=== PATIENT | female | born 1940 | race Caucasian/White ===

== ENCOUNTER 2016-05-17 19:49 | Emergency (ER) | payer MEDICARE, BC ==
[2016-05-17] MEDS ORDERED: 0.9 % SODIUM CHLORIDE 1,000 ML BAG IV ONE (20:32)
[2016-05-17] MEDS ORDERED: ONDANSETRON HCL IV 4 MG/2 ML VIAL IV ONE (20:32)
--- NOTE | 2016-05-17 20:32 | Emergency Department Record ---
History of Present Illness - General Chief Complaint: Abdominal Pain Stated Complaint: ABD PAIN Time Seen by Provider: 05/17/16 20:23 Source: Patient Mode of Arrival: Ambulatory Limitations: No limitations - History of Present Illness Initial Comments: 75 yo female presents with abdominal pain that started this morning. The pain started in the upper abdomen. The pain seems to being moving to the lower abdomen as well. No vomiting or diarrhea. She ate meals without worsening of the pain. No fever. No recent changes in her health. She has had prior appy, gall bladder removal and histerectomy. Prior surgeries were over 40 years ago. She has chronic back pain from a prior injury. No chest pain. She had a normal bowel movement at noon. MD Complaint: Abdominal pain Onset/Timin -: Hour(s) Location: Diffuse Radiation: None Migration to: No migration Severity: Severe Quality: Sharp Consistency: Constant, Intermittent, Getting worse Improves With: Rest Worsens With: Other Associated Symptoms: Denies other symptoms - Related Data Home Medications Medication Instructions Recorded Confirmed Last Taken Calcitonin,Marshall,Synthetic 3.7 ml INH DAILY 10/17/13 05/17/16 05/17/16 [Calcitonin-Marshall] Lidocaine [Lidocaine] 700 mg TOP DAILY 10/17/13 05/17/16 05/17/16 Loratadine [Claritin] 10 mg PO DAILY 10/17/13 05/17/16 05/17/16 Tramadol HCl [Tramadol HCl] 50 mg PO QID PRN 10/17/13 05/17/16 05/17/16 Estrogens, Conjugated [Premarin] 0.3 mg PO DAILY 05/17/16 05/17/16 05/17/16 Hydrochlorothiazide 25 mg PO DAILY 05/17/16 05/17/16 05/17/16 [Hydrochlorothiazide] Omeprazole [Prilosec] 20 mg PO DAILY 05/17/16 05/17/16 05/17/16 Allergies Allergy/AdvReac Type Severity Reaction Status Date / Time acetaminophen [From Vicodin] Allergy ANAPHYLAXIS Verified 05/17/16 20:03 adhesive Allergy RASH Verified 05/17/16 20:03 hydrocodone bitartrate Allergy ANAPHYLAXIS Verified 05/17/16 20:03 [From Vicodin] indomethacin [From Indocin] Allergy ANAPHYLAXIS Verified 05/17/16 20:03 indomethacin sodium Allergy ANAPHYLAXIS Verified 05/17/16 20:03 [From Indocin] Travel Screening - Travel/Exposure Within Last 30 Days Have you traveled within the last 30 days?: No - Travel/Exposure Within Last Year Have you traveled outside the [place] in the last year?: No - Additonal Travel Details Have you been exposed to anyone with a communicable illness?: No - Travel Symptoms Symptom Screening: None Review of Systems Constitutional: Denies: Chills, Fever, Malaise, Weakness Eyes: Denies: Eye discharge ENT: Denies: Congestion, Throat pain Respiratory: Denies: Cough, Dyspnea, Hemoptysis, Stridor, Wheezes Cardiovascular: Denies: Chest pain, Palpitations, Syncope Endocrine: Denies: Fatigue Gastrointestinal: Reports: Abdominal pain. Denies: Constipation, Diarrhea, Hematemesis, Hematochezia, Melena, Nausea, Vomiting Genitourinary: Denies: Dysuria, Urgency Musculoskeletal: Reports: Back pain (chronic). Denies: Arthralgia, Joint swelling, Myalgia, Neck pain Skin: Denies: Bruising, Change in color, Rash Neurological: Denies: Confusion, Headache Psychiatric: Denies: Anxiety Hematological/Lymphatic: Denies: Blood Clots, Easy bleeding, Easy bruising, Swollen glands Past Medical History - SOCIAL HISTORY Smoking Status: Never smoker Alcohol Use: None Drug Use: None - RESPIRATORY Hx Respiratory Disorders: No - CARDIOVASCULAR Hx Cardio Disorders: No - NEURO Hx Neuro Disorders: No - GI Hx GI Disorders: No - Hx Genitourinary Disorders: No - ENDOCRINE Hx Endocrine Disorders: No - MUSCULOSKELETAL Hx Musculoskeletal Disorders: Yes Hx Fibromyalgia: Yes Comment:: lupus - PSYCH Hx Psych Problems: No - HEMATOLOGY/ONCOLOGY Hx Hematology/Oncology Disorders: Yes Hx Blood Disorders: Yes (Leukemia) Comment:: Lupus Family Medical History Any Significant Family History?: No Hx Cancer: Father, Mother, Grandparents Physical Exam - General General Appearance: Alert, Oriented x3, Cooperative, No acute distress Limitations: No limitations - Head Head exam: Atraumatic, Normal inspection - Eye Eye exam: Normal appearance, PERRL. negative: Conjunctival injection, Periorbital swelling, Scleral icterus - ENT ENT exam: Normal exam Ear exam: Normal external inspection Nasal Exam: Normal inspection Mouth exam: Normal external inspection - Neck Neck exam: Normal inspection, Full ROM. negative: Tenderness - Respiratory Respiratory exam: Normal lung sounds bilaterally. negative: Accessory muscle use, Prolonged expiratory, Respiratory distress, Rhonchi, Stridor, Wheezes - Cardiovascular Cardiovascular Exam: Regular rate, Normal rhythm, Normal heart sounds Peripheral Pulses: 2+: Radial (R) - GI/Abdominal GI/Abdominal exam: Soft, Normal bowel sounds, Tenderness (tender in the epigastrium, soft, tender mid left and LUQ, soft, no mass). negative: Distended , Rebound, Rigid - Rectal Rectal exam: Deferred - exam: Deferred - Extremities Extremities exam: Normal inspection, Full ROM, Normal capillary refill. negative: Tenderness - Back Back exam: Reports: Normal inspection, Full ROM. Denies: Muscle spasm, Rash noted, Tenderness - Neurological Neurological exam: Alert, Normal gait, Oriented X3 - Psychiatric Psychiatric exam: Normal affect, Normal mood. negative: Agitated, Anxious - Skin Skin exam: Dry, Intact, Normal color, Warm. negative: Cyanosis, Diaphoretic, Erythema Course Vital Signs 05/17/16 19:59 Temperature 97.9 F Pulse Rate [ 62 Pulse Ox Probe] Respiratory 18 Rate Blood Pressure 156/70 [Left Arm] Pulse Ox 98 - Reevaluation(s) Reevaluation #1: the labs were reviewed her WBC count was 19,600 the remaining CBC,CMP,Lipase and lactic acid were in the normal range 05/17/16 21:10 she is tolerating the oral contrast 05/17/16 21:11 Reevaluation #2: The patient tolerated PO contrast well Her abdomen is still very soft but she is drier tender in the periumbilical area. 05/17/16 22:00 Reevaluation #3: The patient has returned from CT. CT sent to [facility] No change in exam. The abdomen is soft but still with periumbilical tenderness. 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 Medical Decision Making - Lab Data Result diagrams: 05/17/16 20:44 05/17/16 20:44 Disposition Disposition: Transfer Clinical Impression: Abdominal pain Qualifiers: Abdominal location: unspecified location Qualified Code(s): R10.9 - Unspecified abdominal pain Disposition: Home, Self-Care Transfer To: [facility] Reason For Transfer: Surgery consult Accepting Physician: Jose Elias Time Discussed w/Accepting Physician: 23:33 Condition: (1) Good Forms: Patient Portal Access Time of Disposition: 23:33
[2016-05-17] MEDS ORDERED: MORPHINE SULFATE 5 MG/ML PFS IVP ONE (20:38)
[2016-05-17 20:52] LABS: HEMATOCRIT 39.7 % (35.0-47.0); HEMOGLOBIN 13.3 gm/dl (11.6-16.0); MEAN CELL VOLUME 90.4 fl (81-97); MEAN CORPUSCULAR HEMOGLOBIN 30.3 pg (27-33); MEAN CORPUSCULAR HGB CONC 33.5 g/dl (32-36); MEAN PLATELET VOLUME 9.6 fl (7.4-10.4); PLATELET COUNT 213 K/uL (130-400); RED BLOOD COUNT 4.39 M/uL (3.80-5.40); RED CELL DISTRIBUTION WIDTH 14.8 % (11.5-14.5); WHITE BLOOD COUNT W/O DIFF 19.6 K/uL (4.2-12.2)
[2016-05-17 21:03] LABS: LACTIC ACID 0.7 mmol/L (0.7-2.1)
[2016-05-17 21:04] LABS: INR 0.98; PARTIAL THROMBOPLASTIN TIME 28.7 SECONDS (24.5-39.1); PROTHROMBIN TIME (PATIENT) 11.1 SECONDS (9.5-12.1)
[2016-05-17 21:07] LABS: BLOOD UREA NITROGEN 28 mg/dL (7-17); CREATININE 0.7 mg/dL (0.52-1.04); EST GLOMERULAR FILTRATION RATE > 60 ml/min; GLUCOSE,RANDOM 108 mg/dL (70-110); TOTAL PROTEIN 6.6 gm/dL (6.3-8.2)
[2016-05-17 21:08] LABS: ALB/GLOB RATIO 1.5 (1.1-1.8); ALKALINE PHOSPHATASE 62 U/L (38-126); ALT/SGPT 30 U/L (9-52); AST/SGOT 24 U/L (14-36); LIPASE 195 U/L (23-300)
[2016-05-17 21:20] LABS: URINE APPEARANCE CLEAR; URINE BILIRUBIN NEGATIVE (NEGATIVE); URINE BLOOD SMALL (NEGATIVE); URINE COLOR YELLOW; URINE GLUCOSE (UA) NEGATIVE (NEGATIVE); URINE KETONE NEGATIVE (NEGATIVE); URINE LEUKOCYTE ESTERASE NEGATIVE (NEGATIVE); URINE NITRITE NEGATIVE (NEGATIVE); URINE UROBILINOGEN 0.2 E.U./dL (0.20 - 1.00)
[2016-05-17 21:24] LABS: URINE PROTEIN 300 mg/dL (NEGATIVE)
[2016-05-17 21:31] LABS: URINE AMORPHOUS SEDIMENT 1+; URINE MUCUS LIGHT
[2016-05-17] MEDS ORDERED: 0.9 % SODIUM CHLORIDE 1000ML 1,000 ML IV ONE (22:54)
--- NOTE | 2016-05-23 07:45 | CT SCAN REPORT ---
EXAM: CT OF THE ABDOMEN AND PELVIS WITH CONTRAST HISTORY: WORSENING DIFFUSE ABDOMINAL PAIN FOR ONE DAY. PATIENT DOES NOT COMPLAIN OF NAUSEA, VOMITING OR DIARRHEA. TECHNIQUE: Following oral and IV contrast administration, helical CT examination of the abdomen and pelvis was performed with 100 ml of Omnipaque 300 utilized. Comparison: CT abdomen and pelvis with contrast dated 10/17/13. FINDINGS: There is minor dependent atelectasis within the left lung base. A tiny pleural based nodular opacity is redemonstrated in the lateral right lung base measuring approximately 2 mm. This is unchanged since 10/17/13 consistent with a benign post inflammatory nodule. The lungs and pleural spaces are otherwise clear. The heart is not enlarged. There is minor coronary artery calcification present. A few nonenlarged cardiophrenic lymph nodes are noted both on the right and the left, stable. A small Bochdalek type hernia is suggested on the left, not significantly changed. No new focal hepatic lesion is seen. The gallbladder is not visualized and likely surgically absent. Mild prominence of the biliary tree is present, new since the prior examination. The common hepatic duct measures 7.6 mm. This may just relate to a physiologic response to surgical absence of the gallbladder though a small distal obstructing lesion would be difficult to exclude and correlation with serum bilirubin and alkaline phosphatase levels is recommended. Splenomegaly persists unchanged or slightly more pronounced in the interval measuring 14 cm in craniocaudad diameter. Ring like calcification is redemonstrated in the left splenic hilum likely a calcified splenic artery aneurysm. No focal lesion is noted in the pancreas, adrenal glands, nor right kidney. There are a couple small hypodense lesions within the left kidney. That in the anteromedial mid to upper left kidney measures 7 mm in diameter, not significantly changed in the interval and that in the posterior lower left kidney measures 9 mm. This is also unchanged. These are likely cysts. A tiny hypodense lesion in the lateral right mid kidney seen on the prior examination is no longer visualized. There are mildly enlarged periportal/gastrohepatic ligament lymph nodes identified measuring 1.4 cm in short axis diameter each. In addition there is a mildly enlarged portocaval lymph node measuring 1.7 cm in short axis diameter. These are not significantly changed in the interval. They are nonspecific though likely reactive. No new intraabdominal nor retroperitoneal lymphadenopathy. The uterus is surgically absent. No pelvic mass, lymphadenopathy, or free pelvic fluid. No intrinsic urinary bladder abnormality is seen. No gross bowel dilatation nor bowel wall thickening. There is diverticulosis of the left colon without evidence of diverticulitis. No destructive bone lesion is seen. There are degenerative changes scattered within the visualized spine. There are a few small nodular opacities within the inferior right breast without corresponding opacities within the left breast. While this likely relates to asymmetric breast parenchyma, other etiologies cannot be excluded and correlation with recent mammographic examination is recommended. There is diffuse atherosclerosis without aneurysmal dilatation of the abdominal aorta nor iliac arteries. IMPRESSION: 1. PRESUMED SURGICALLY ABSENT GALLBLADDER. BILIARY DUCTAL PROMINENCE NEW SINCE THE PRIOR EXAMINATION. THIS MAY JUST RELATE TO A PHYSIOLOGIC RESPONSE TO SURGICAL ABSENCE OF THE GALLBLADDER THOUGH A SMALL DISTAL OBSTRUCTING LESION WOULD BE DIFFICULT TO EXCLUDE AND CORRELATION WITH SERUM BILIRUBIN AND ALKALINE PHOSPHATASE LEVELS WAS RECOMMENDED. 2. MILD ADENOPATHY IN THE PERIPORTAL/GASTROHEPATIC LIGAMENT AND PORTOCAVAL REGIONS NOT GROSSLY CHANGED IN THE INTERVAL, LIKELY REACTIVE. 3. MILD SPLENOMEGALY UNCHANGED OR SLIGHTLY MORE PRONOUNCED IN THE INTERVAL. RING LIKE CALCIFICATION AGAIN NOTED IN THE SPLENIC HILUM CONSISTENT WITH A CALCIFIED ANEURYSM, STABLE. 4. COLONIC DIVERTICULOSIS WITHOUT EVIDENCE OF DIVERTICULITIS. 5. STABLE TOO SMALL TO CHARACTERIZE HYPODENSE LESIONS IN THE LEFT KIDNEY ARE LIKELY CYSTS. 6. SOMEWHAT NODULAR OPACITIES WITHIN THE INFERIOR RIGHT BREAST WITHOUT CORRESPONDING OPACITIES ON THE LEFT. PLEASE SEE ABOVE DISCUSSION. JOB NUMBER: [id number] [facility]
== END 2016-05-18 00:40 | disposition short-term general hospital (02) ==
LOC: ER 19:49
DX: R10.33 Periumbilical pain (principal); D72.829 Elevated white blood cell count, unspecified; M32.9 Systemic lupus erythematosus, unspecified
CPT/HCPCS: 99285 ×2; 96374; 96375; 83605; 83690; 85730; 85610; 80053; 81001; 85027; 74177; 93005; 93010; Q9967; J2405; J2270; J7030

== ENCOUNTER 2017-11-01 21:49 | Emergency (ER) | payer MEDICARE, BC ==
[2017-11-01] MEDS ORDERED: GENTAMICIN SULFATE 0.3% OPTH 5 ML BTL OPTH ONE ×2 (22:03)
--- NOTE | 2017-11-01 22:04 | Emergency Department Record ---
History of Present Illness - General Chief complaint: Eye Problem Time Seen by Provider: 11/01/17 22:03 Source: Patient Mode of Arrival: Ambulatory Limitations: No limitations - History of Present Illness Initial comments: 77 yo female presents to ED for evaluation of red, itchy eyes for 1 day. Patient reports "I know it's conjunctivitis, and I need an eye drop". 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 Patient has been using erythromycin ointment but states that "the drops work better". chief complaint: Eye redness Onset/Timin -: Hour(s) Onset Description: Awoke with symptoms Location: Both eyes Place: Home If Injury: None Eye Symptoms: Itching Severity: Moderate Consistency: Constant Associated Symptoms: None, Rhinorrhea Treatments Prior to Arrival: Other - Related Data Hx Tetanus Toxoid Vaccination: Yes Home Medications Medication Instructions Recorded Confirmed Last Taken Erythromycin Base [Erythromycin 1 apply AFFEYE BID 11/01/17 11/01/17 11/01/17 OPTH Ointment] Allergies Allergy/AdvReac Type Severity Reaction Status Date / Time acetaminophen [From Vicodin] Allergy ANAPHYLAXIS Verified 11/01/17 21:54 adhesive Allergy RASH Verified 11/01/17 21:54 hydrocodone bitartrate Allergy ANAPHYLAXIS Verified 11/01/17 21:54 [From Vicodin] indomethacin [From Indocin] Allergy ANAPHYLAXIS Verified 11/01/17 21:54 indomethacin sodium Allergy ANAPHYLAXIS Verified 11/01/17 21:54 [From Indocin] Travel Screening - Travel/Exposure Within Last 30 Days Have you traveled within the last 30 days?: No - Travel/Exposure Within Last Year Have you traveled outside the [place] in the last year?: No - Additonal Travel Details Have you been exposed to anyone with a communicable illness?: No - Travel Symptoms Symptom Screening: None Review of Systems Constitutional: Denies: Chills, Fever, Malaise, Night sweats Eyes: Reports: Eye discharge. Denies: Photophobia ENT: Denies: Congestion, Ear pain, Epistaxis Respiratory: Denies: Cough, Dyspnea Cardiovascular: Denies: Chest pain, Dyspnea on exertion Endocrine: Denies: Fatigue, Heat or cold intolerance Gastrointestinal: Denies: Abdominal pain, Nausea, Vomiting Genitourinary: Denies: Incontinence, Retention Musculoskeletal: Denies: Arthralgia, Back pain Skin: Denies: Bruising, Change in color Neurological: Denies: Abnormal gait, Confusion, Headache, Seizure Psychiatric: Denies: Anxiety Hematological/Lymphatic: Denies: Anemia, Blood Clots Past Medical History - SOCIAL HISTORY Smoking Status: Never smoker Alcohol Use: None Drug Use: None - RESPIRATORY Hx Respiratory Disorders: No - CARDIOVASCULAR Hx Cardio Disorders: No - NEURO Hx Neuro Disorders: No - GI Hx GI Disorders: No - Hx Genitourinary Disorders: No - ENDOCRINE Hx Endocrine Disorders: No - MUSCULOSKELETAL Hx Musculoskeletal Disorders: Yes Hx Fibromyalgia: Yes Comment:: lupus - PSYCH Hx Psych Problems: No - HEMATOLOGY/ONCOLOGY Hx Hematology/Oncology Disorders: Yes Hx Blood Disorders: Yes (Leukemia) Comment:: Lupus Family Medical History Any Significant Family History?: No Hx Cancer: Father, Mother, Grandparents Physical Exam - General General Appearance: Alert, Oriented x3, Cooperative, Mild distress Limitations: No limitations - Head Head exam: Atraumatic, Normocephalic, Normal inspection Head exam detail: negative: Abrasion, Contusion, Ng's sign, General tenderness, Hematoma, Laceration - Eye Eye exam: Normal appearance, Conjunctival injection. negative: Periorbital swelling, Periorbital tenderness, Scleral icterus - ENT Ear exam: negative: Auricular hematoma, Auricular trauma Nasal Exam: negative: Active bleeding, Discharge, Dried blood, Foreign body Mouth exam: negative: Drooling, Laceration, Muffled voice, Tongue elevation - Neck Neck exam: Normal inspection. negative: Meningismus, Tenderness - Respiratory Respiratory exam: Normal lung sounds bilaterally. negative: Rales, Respiratory distress, Rhonchi, Stridor - Cardiovascular Cardiovascular Exam: Regular rate, Normal rhythm, Normal heart sounds - GI/Abdominal GI/Abdominal exam: Soft. negative: Rebound, Rigid, Tenderness - Rectal Rectal exam: Deferred - exam: Deferred - Extremities Extremities exam: Normal inspection. negative: Tenderness - Neurological Neurological exam: Alert, Normal gait, Oriented X3 - Psychiatric Psychiatric exam: Normal affect, Normal mood - Skin Skin exam: Normal color. negative: Abrasion Type of lesion: negative: abrasion Course Vital Signs 11/01/17 21:56 Temperature 97.8 F Pulse Rate 62 Respiratory 16 Rate Blood Pressure 145/82 Pulse Ox 99 - Reevaluation(s) Reevaluation #1: 07/07/18 22:08 Patient states that her symptoms are not allergic in nature Will switch her antibiotic to gentamycin drops as directed. Patient appears stable for discharge at this time. Disposition Disposition: Discharge Clinical Impression: Conjunctivitis Qualifiers: Conjunctivitis type: acute Acute conjunctivitis type: unspecified Laterality: bilateral Qualified Code(s): H10.33 - Unspecified acute conjunctivitis, bilateral Disposition: Home, Self-Care Condition: (2) Stable Instructions: Conjunctivitis (ED) Additional Instructions: Return to ED if your symptoms worsen or if you have any concerns. Gentamycin eye drops as directed. Follow-up with your eye doctor in 1-3 days as directed. Forms: Patient Portal Access Time of Disposition: 22:04 Quality - Quality Measures Quality Measures: N/A - Blood Pressure Screening Does Patient Have Any of the Following: Active Dx of HTN Blood Pressure Classification: Pre-Hypertensive BP Reading Systolic Measurement: 145 Diastolic Measurement: 82 Screening for High Blood Pressure: Patient Exclusion, Hx of HTN [[id number]]
== END 2017-11-01 22:16 | disposition home or self-care (01) ==
LOC: ER 21:49
DX: H10.33 Unspecified acute conjunctivitis, bilateral (principal)
CPT/HCPCS: 99282

== ENCOUNTER 2017-11-27 12:00 | Inpatient (IN) | payer MEDICARE, BC ==
[2017-11-27] MEDS ORDERED: HYDROMORPHONE HCL 2 MG/ML VIAL IVP ONE ×2 (12:31→14:12)
[2017-11-27] MEDS ORDERED: ONDANSETRON HCL IV 4 MG/2 ML VIAL IVP ONE (12:31)
[2017-11-27 13:00] LABS: HEMATOCRIT 38.3 % (35.0-47.0); HEMOGLOBIN 12.2 gm/dl (11.6-16.0); MEAN CELL VOLUME 90.8 fl (81-97); MEAN CORPUSCULAR HEMOGLOBIN 28.9 pg (27-33); MEAN CORPUSCULAR HGB CONC 31.9 g/dl (32-36); MEAN PLATELET VOLUME 8.9 fl (7.4-10.4); PLATELET COUNT 212 K/uL (130-400); RED BLOOD COUNT 4.22 M/uL (3.80-5.40); RED CELL DISTRIBUTION WIDTH 15.6 % (11.5-14.5)
[2017-11-27 13:11] LABS: BLOOD UREA NITROGEN 23 mg/dL (8-23); CREATININE 0.6 mg/dL (0.5-0.9); EST GLOMERULAR FILTRATION RATE > 60 mL/min
[2017-11-27 13:14] LABS: GLUCOSE,RANDOM 94 mg/dL (74-109)
[2017-11-27 13:16] LABS: ALB/GLOB RATIO 1.7 (1.1-1.8); ALBUMIN 3.8 g/dL (4.0-5.0); ALT/SGPT 17 U/L (<33); AST/SGOT 21 U/L (10.0-35.0)
[2017-11-27 13:17] LABS: ALKALINE PHOSPHATASE 58 U/L (35-104)
--- NOTE | 2017-11-27 13:36 | Emergency Department Record ---
History of Present Illness - General Chief Complaint: Fall Injury Stated Complaint: FALL Time Seen by Provider: 11/27/17 12:22 Source: Patient, EMS Mode of Arrival: Ambulatory Limitations: No limitations - History of Present Illness Initial Comments: pt was standing on 2 step footstool putting up a basket when she fell injuring her left side. Complaint: Fall Onset/Timin -: Minutes(s) Fall From: From height (distance) When Fall Occurred: Just prior to arrival Fall Witnessed: No Place Fall Occurred: Home Loss of Consciousness: None Prolonged Down Time?: No Symptoms Prior to Fall: None Location: Chest, Abdomen, Other Severity: Severe Severity scale (1-10): 10 Quality: Aching Associated Symptoms: Denies - [place] Coma Scale Eye Response: (4) Open spontaneously Motor Response: (6) Obeys commands Verbal Response: (5) Oriented Maciej Total: 15 - Related Data Allergies Allergy/AdvReac Type Severity Reaction Status Date / Time acetaminophen [From Vicodin] Allergy ANAPHYLAXIS Verified 11/27/17 12:06 adhesive Allergy RASH Verified 11/27/17 12:06 hydrocodone bitartrate Allergy ANAPHYLAXIS Verified 11/27/17 12:06 [From Vicodin] indomethacin [From Indocin] Allergy ANAPHYLAXIS Verified 11/27/17 12:06 indomethacin sodium Allergy ANAPHYLAXIS Verified 11/27/17 12:06 [From Indocin] Travel Screening - Travel/Exposure Within Last 30 Days Have you traveled within the last 30 days?: No Review of Systems Reviewed: No additional complaints except as noted below Constitutional: Reports: As per HPI. Denies: Chills, Fever, Malaise, Night sweats, Weakness, Weight change Eyes: Reports: As per HPI. Denies: Eye discharge, Eye pain, Photophobia, Vision change ENT: Reports: As per HPI. Denies: Congestion, Dental pain, Ear pain, Epistaxis , Hearing loss, Throat pain Respiratory: Reports: As per HPI. Denies: Cough, Dyspnea, Hemoptysis, Stridor, Wheezes Cardiovascular: Reports: As per HPI. Denies: Arrhythmia, Chest pain, Dyspnea on exertion, Edema, Murmurs, Orthopnea, Palpitations, Paroxysmal nocturnal dyspnea, Rheumatic Fever, Syncope Endocrine: Reports: As per HPI. Denies: Fatigue, Heat or cold intolerance, Polydipsia, Polyuria Gastrointestinal: Reports: As per HPI. Denies: Abdominal pain, Constipation, Diarrhea, Hematemesis, Hematochezia, Melena, Nausea, Vomiting Genitourinary: Reports: As per HPI. Denies: Abnormal menses, Discharge, Dyspareunia, Dysuria, Frequency, Hematuria, Incontinence, Retention, Urgency Musculoskeletal: Reports: As per HPI. Denies: Arthralgia, Back pain, Gout, Joint swelling, Myalgia, Neck pain Skin: Reports: As per HPI. Denies: Bruising, Change in color, Change in hair/ nails, Lesions, Pruritus, Rash Neurological: Reports: As per HPI. Denies: Abnormal gait, Confusion, Headache, Numbness, Paresthesias, Seizure, Tingling, Tremors, Vertigo, Weakness Psychiatric: Reports: As per HPI. Denies: Anxiety, Auditory hallucinations, Depression, Homicidal thoughts, Suicidal thoughts, Visual hallucinations Hematological/Lymphatic: Reports: As per HPI. Denies: Anemia, Blood Clots, Easy bleeding, Easy bruising, Swollen glands Past Medical History - SOCIAL HISTORY Smoking Status: Never smoker Alcohol Use: None Drug Use: None - RESPIRATORY Hx Respiratory Disorders: No - CARDIOVASCULAR Hx Cardio Disorders: No - NEURO Hx Neuro Disorders: No - GI Hx GI Disorders: No - Hx Genitourinary Disorders: No - ENDOCRINE Hx Endocrine Disorders: No - MUSCULOSKELETAL Hx Musculoskeletal Disorders: Yes Hx Fibromyalgia: Yes Comment:: lupus - PSYCH Hx Psych Problems: No - HEMATOLOGY/ONCOLOGY Hx Hematology/Oncology Disorders: Yes Hx Blood Disorders: Yes (Leukemia) Comment:: Lupus Family Medical History Any Significant Family History?: Yes Hx Cancer: Father, Mother, Grandparents Physical Exam - General General Appearance: Alert, Oriented x3, Cooperative, Moderate distress - Head Head exam: Normal inspection - Eye Eye exam: Normal appearance, PERRL, EOMI Pupils: Normal accommodation - ENT ENT exam: Normal exam, Mucous membranes moist, Normal external ear exam, Normal orophraynx Ear exam: Normal external inspection. negative: External canal tenderness Nasal Exam: Normal inspection. negative: Discharge, Sinus tenderness Mouth exam: Normal external inspection, Tongue normal Teeth exam: Normal inspection. negative: Dental caries Throat exam: Normal inspection. negative: Tonsillar erythema, Tonsillar exudate - Neck Neck exam: Normal inspection, Full ROM. negative: Tenderness - Respiratory Respiratory exam: Normal lung sounds bilaterally, Chest wall tenderness. negative: Respiratory distress - Cardiovascular Cardiovascular Exam: Regular rate, Normal rhythm, Normal heart sounds - GI/Abdominal GI/Abdominal exam: Soft, Normal bowel sounds, Tenderness - Rectal Rectal exam: Deferred - exam: Deferred - Extremities Extremities exam: Normal inspection, Full ROM, Normal capillary refill. negative: Tenderness - Back Back exam: Reports: Normal inspection, CVA tenderness (L), Full ROM. Denies: Muscle spasm, Rash noted, Tenderness - Neurological Neurological exam: Alert, CN II-XII intact, Normal gait, Oriented X3 - Psychiatric Psychiatric exam: Normal affect, Normal mood - Skin Skin exam: Dry, Intact, Normal color, Warm Course Vital Signs 11/27/17 12:08 Pulse Rate 60 Respiratory 20 Rate Blood Pressure 141/66 Pulse Ox 95 Medical Decision Making - Lab Data Result diagrams: 11/27/17 12:41 11/27/17 12:41 Lab Results 11/27/17 11/27/17 Range/Units 12:41 12:41 WBC 20.0 H (4.2-12.2) K/uL RBC 4.22 (3.80-5.40) M/uL Hgb 12.2 (11.6-16.0) gm/dl Hct 38.3 (35.0-47.0) % MCV 90.8 (81-97) fl MCH 28.9 (27-33) pg MCHC 31.9 L (32-36) g/dl RDW 15.6 H (11.5-14.5) % Plt Count 212 (130-400) K/uL MPV 8.9 (7.4-10.4) fl Eosinophils % Not Reportable Basophils % Not Reportable Sodium 141 (136-145) mmol/L Potassium 3.7 (3.4-4.5) mmol/L Chloride 99 (98-107) mmol/L Carbon Dioxide 33.0 H (22-29) mmol/L Anion Gap 9.0 (7-16) BUN 23 (8-23) mg/dL Creatinine 0.6 (0.5-0.9) mg/dL Estimated GFR > 60 mL/min Random Glucose 94 (74-109) mg/dL Calcium 9.7 (8.8-10.2) mg/dL Total Bilirubin 0.50 (0.2-1.0) mg/dL AST 21 (10.0-35.0) U/L ALT 17 (<33) U/L Alkaline Phosphatase 58 (35-104) U/L Total Protein 6.0 L (6.6-8.7) g/dL Albumin 3.8 L (4.0-5.0) g/dL Globulin 2.2 (1.4-4.8) gm/dL Albumin/Globulin Ratio 1.7 (1.1-1.8) Disposition Disposition: Admit Clinical Impression: Multiple rib fractures Qualifiers: Encounter type: initial encounter Fracture type: closed Laterality: left Qualified Code(s): S22.42XA - Multiple fractures of ribs, left side, initial encounter for closed fracture Fall Qualifiers: Encounter type: initial encounter Qualified Code(s): W19.XXXA - Unspecified fall, initial encounter Disposition: Still a Patient at [facility] Decision to Admit: Admit from ER Decision to Admit Date: 11/27/17 Decision to Admit Time: 14:58 Forms: Patient Portal Access Quality - Quality Measures Quality Measures: N/A - Blood Pressure Screening Does Patient Have Any of the Following: No Blood Pressure Classification: Hypertensive Reading Systolic Measurement: 141 Diastolic Measurement: 66 Screening for High Blood Pressure: < First Hypertensive BP, F/U Documented > [ [id number]] First Hypertensive Follow-up Interventions: Follow-up with rescreen GT 1 day and LT 4 weeks.
[2017-11-27] MEDS ORDERED: KETOROLAC 30 MG/ML VIAL IVP ONE (15:06)
[2017-11-27] MEDS ORDERED: ONDANSETRON HCL IV 4 MG/2 ML VIAL IVP PRN (17:43)
[2017-11-27] MEDS: TRAMADOL HCL 50 MG TABLET PO PRN (19:47)
[2017-11-27] MEDS: HYDROMORPHONE HCL 2 MG/ML VIAL IVP PRN (20:30)
[2017-11-27] MEDS: REMOVE PATCH 1 EACH MISC TD SCH (21:07)
[2017-11-28] MEDS: HYDROMORPHONE HCL 2 MG/ML VIAL IVP PRN (05:12)
[2017-11-28] MEDS: TRAMADOL HCL 50 MG TABLET PO PRN (05:12)
[2017-11-28] MEDS: PANTOPRAZOLE SODIUM 40 MG TABLET PO SCH (06:46)
--- NOTE | 2017-11-28 07:26 | CT SCAN REPORT ---
EXAM: CT OF THE ABDOMEN AND PELVIS HISTORY: FALL FROM STEP STOOL, RIB PAIN. TECHNIQUE: Post contrast CT of the abdomen and pelvis was obtained. Approximately 100 ml of Omnipaque 300 intravenous contrast agent was utilized. Comparison: CT of the abdomen and pelvis 05/17/16. FINDINGS: Mild prominence of the biliary tree, similar from prior examination; of uncertain significant given surgical absence of the gallbladder. The liver is otherwise unremarkable. Splenomegaly, overall similar to prior. 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 The adrenal glands and pancreas appear unremarkable. Symmetrically no perfusion. No definite hydronephrosis; minimal asymmetric prominence of the right renal collecting system is overall similar from prior CT and of uncertain significance. Mildly enlarged periportal, gastrohepatic, and portocaval lymph nodes appear stable from prior CT. Diffuse colonic diverticulosis without evidence of acute diverticulitis. The stomach and small bowel are nondilated. No visible pneumoperitoneum. No significant free fluid. Diffuse atherosclerotic calcification of the aortoiliac arterial access without evidence of aneurysm or dissection. A probable pessary device is noted in the pelvic region. The uterus is not visualized. A tiny focus of gas is noted within the urinary bladder along the anterior aspect. Left sided rib fracture is noted, described in separate report for same day CT chest. No additional acute fractures are identified. Marked anteriorly wedged compression deformity of the L1 vertebral body with associated focal kyphosis and retropulsion which appears stable from prior CT. IMPRESSION: 1. NO DEFINITE ACUTE ABDOMINAL OR PELVIC FINDINGS ARE IDENTIFIED. NONDISPLACED LEFT SIDED RIB FRACTURES ARE NOTED, DESCRIBED IN SEPARATE SAME DAY CT REPORT OF THE CHEST. 2. MILD PROMINENCE OF THE BILIARY TREE WHICH APPEARS STABLE FROM 05/17/16 EXAMINATION AND MAY BE RELATED TO PRIOR CHOLECYSTECTOMY. DESCRIBED PREVIOUSLY, CORRELATION WITH SERUM MARKERS MAY BE OF BENEFIT. 3. STABLE ENLARGED PERIPORTAL, GASTROHEPATIC, AND PORTOCAVAL ADENOPATHY. 4. STABLE SPLENOMEGALY. UNCHANGED APPEARANCE OF SMALL CALCIFIED SPLENIC ARTERY ANEURYSM. 5. MARKED L1 VERTEBRAL BODY COMPRESSION DEFORMITY WITH FOCAL KYPHOSIS AND RETROPULSION, UNCHANGED IN APPEARANCE FROM PRIOR CT. 6. COLONIC DIVERTICULOSIS WITHOUT EVIDENCE OF ACUTE DIVERTICULITIS. JOB NUMBER: [id number] [facility], [place]
--- NOTE | 2017-11-28 07:49 | CT SCAN REPORT ---
EXAM: CT OF THE CHEST HISTORY: PATIENT FELL FROM A STEP STOOL, AND NOW HAS LEFT RIB PAIN. TECHNIQUE: Post contrast CT of the chest was obtained. Approximately 100 ml of Omnipaque 300 intravenous contrast was administered. Comparison: CT of the thoracic and lumbar spine 01/19/12. FINDINGS: Suggestion of hypoenhancing right thyroid lobe nodule (series 2 image 1). No pericardial effusion. The thoracic aorta has normal course and caliber; no evidence of aneurysm or dissection. Mild atherosclerotic calcification of the aorta. No pulmonary arterial filling defect seen in the opacified portions of the pulmonary artery. No mediastinal, hilar, or axillary lymphadenopathy. Mild dependent lower lobe atelectasis bilaterally. Otherwise, no focal pulmonary consolidation. No pleural effusion or pneumothorax. Noncalcified 4 mm perifistular right middle lobe nodule (series 2 image 26). Left upper lobe subpleural 4 mm calcified nodule (series 2 image 27, series 601.2 image 152). Nondisplaced fractures of the lateral left ribs five, six and seven. Please see separate report for CT of the abdomen and pelvis for discussion of upper abdominal findings. IMPRESSION: 1. NO DEFINITE ACUTE INTRATHORACIC FINDINGS. 2. NONDISPLACED FRACTURES INVOLVING THE LATERAL ASPECTS OF THE LEFT RIBS FIVE, SIX, AND SEVEN. 3. INCIDENTAL PULMONARY NODULES MEASURING UP TO 4 MM; PER [employer] GUIDELINES, FOLLOW-UP CT OF THE CHEST IS RECOMMENDED IN TWELVE MONTHS TO ASSESS FOR STABILITY. 4. INCIDENTAL PARTIALLY VISUALIZED RIGHT THYROID LOBE NODULE; DEDICATED THYROID ULTRASOUND MAY BE PERFORMED ON A NONEMERGENT BASIS TO FURTHER CHARACTERIZE. JOB NUMBER: [id number] AND [id number] [facility]
[2017-11-28 08:55] LABS: URINE APPEARANCE SL CLOUDY; URINE BILIRUBIN NEGATIVE (NEGATIVE); URINE BLOOD TRACE-I (NEGATIVE); URINE COLOR YELLOW; URINE GLUCOSE (UA) NEGATIVE (NEGATIVE); URINE KETONE NEGATIVE (NEGATIVE); URINE LEUKOCYTE ESTERASE NEGATIVE (NEGATIVE); URINE NITRITE NEGATIVE (NEGATIVE); URINE UROBILINOGEN 0.2 E.U./dL (0.20 - 1.00)
[2017-11-28 09:00] LABS: URINE BACTERIA 4+; URINE EPITHELIAL CELLS 0 - 2 (FEW)
[2017-11-28] MEDS: LIDOCAINE 5% PATCH TOP SCH (09:09)
[2017-11-28] MEDS: HYDROCHLOROTHIAZIDE 25 MG TABLET PO SCH (09:10)
[2017-11-28] MEDS: LORATADINE 10 MG TABLET PO SCH (09:10)
--- NOTE | 2017-11-28 09:11 | History & Physical ---
History of Present Illness - Date of Service Date of Service for History & Physical: 11/28/17 - History of Present Illness Admitting Diagnosis: rib fractures 5,6,7, fall History of Present Illness: Cece Galan is a 77 y/o female brought to ED by EMS s/p fall from a 2 step foot stool while hanging a basket. Denies hitting head or LOC. Lives independently and manage own ADL. Denies any previous change in activity but does report she had acute vomiting, nausea and diarrhea about a week ago that has now resolved. PMX includes fibromyalgia, lupus, leukemia. While in ED abd/pelvis CT showed nod displaced left rib fractures, L1 compression fracture. Chest CT left non displaced 5th, 6th, 7th rib fractures, incidental findings pulmonary nodules no larger than 4mm- recommend follow up chest CT in 12 months, nodule left lobe of thyroid gland, follow up ultrasound on non-emergent bases. WBC 20- acute trauma vs. underlying acute infection. Admitted to floor for pain control, work up/rule out acute infection. 11/28/17- resting in bed, uncomfortable reporting pain level of 9/10. Has been using Dilaudid Q 4 hours for pain. Denies any new symptoms from yesterday, no new concerns from nursing. No fevers overnight. Significant pain with rolling in bed, is requesting home DME to help her with ADLs due to pain. Will collect urine to rule out acute UTI, PT/OT eval for potential home needs, plan to trial oral pain medications with PRN IV Dilaudid for pain control. Potential swing bed candidate for deconditioning due to severe pain Travel Screening - Travel/Exposure Within Last 30 Days Have you traveled within the last 30 days?: No - Travel/Exposure Within Last Year Have you traveled outside the [place] in the last year?: No - Additonal Travel Details Have you been exposed to anyone with a communicable illness?: No - Travel Symptoms Symptom Screening: None Review of Systems Constitutional: Reports: As per HPI. Denies: Chills, Fever, Malaise, Night sweats, Weakness, Weight change Eyes: Reports: As per HPI. Denies: Eye discharge, Eye pain, Photophobia, Vision change ENT: Reports: As per HPI. Denies: Congestion, Dental pain, Ear pain, Epistaxis , Hearing loss, Throat pain Respiratory: Reports: As per HPI. Denies: Cough, Dyspnea, Hemoptysis, Stridor, Wheezes Cardiovascular: Reports: As per HPI. Denies: Arrhythmia, Chest pain, Dyspnea on exertion, Edema, Murmurs, Orthopnea, Palpitations, Paroxysmal nocturnal dyspnea, Rheumatic Fever, Syncope Endocrine: Reports: As per HPI. Denies: Fatigue, Heat or cold intolerance, Polydipsia, Polyuria Gastrointestinal: Reports: As per HPI. Denies: Abdominal pain, Constipation, Diarrhea, Hematemesis, Hematochezia, Melena, Nausea, Vomiting Genitourinary: Reports: As per HPI. Denies: Abnormal menses, Discharge, Dyspareunia, Dysuria, Frequency, Hematuria, Incontinence, Retention, Urgency Musculoskeletal: Reports: As per HPI. Denies: Arthralgia, Back pain, Gout, Joint swelling, Myalgia, Neck pain Skin: Reports: As per HPI. Denies: Bruising, Change in color, Change in hair/ nails, Lesions, Pruritus, Rash Neurological: Reports: As per HPI. Denies: Abnormal gait, Confusion, Headache, Numbness, Paresthesias, Seizure, Tingling, Tremors, Vertigo, Weakness Psychiatric: Reports: As per HPI. Denies: Anxiety, Auditory hallucinations, Depression, Homicidal thoughts, Suicidal thoughts, Visual hallucinations Hematological/Lymphatic: Reports: As per HPI. Denies: Anemia, Blood Clots, Easy bleeding, Easy bruising, Swollen glands Past Medical History - SOCIAL HISTORY Smoking Status: Never smoker Alcohol Use: None Drug Use: None - RESPIRATORY Hx Respiratory Disorders: No - CARDIOVASCULAR Hx Cardio Disorders: No - NEURO Hx Neuro Disorders: No - GI Hx GI Disorders: Yes Hx Reflux: Yes Comment:: diarrhea and nausea - Hx Genitourinary Disorders: Yes Hx Kidney Stones: Yes Hx UTI: Yes - ENDOCRINE Hx Endocrine Disorders: No Hx Diabetes: No Hx Thyroid Disease: No - MUSCULOSKELETAL Hx Musculoskeletal Disorders: Yes Hx Arthritis: Yes Hx Back Injury: Yes Hx Fibromyalgia: Yes Hx Gout: No Hx Musculoskeletal Disease: No Hx Osteoporosis: Yes Comment:: lupus - PSYCH Hx Psych Problems: No - HEMATOLOGY/ONCOLOGY Hx Hematology/Oncology Disorders: Yes Hx Anemia: No Hx Blood Disorders: Yes (CLL) Hx Bruising: Yes Hx Cancer: Yes (CLL) Hx Chemotherapy: No Hx Radiation Therapy: No Hx Clotting Problems: No Hx Sickle Cell Disease: No Hx Unexplained Bleeding: No Hx Blood Transfusions: Yes (with labor and delivery of child) Hx Blood Transfusion Reaction: No Comment:: Lupus Family Medical History Any Significant Family History?: Yes Hx Alcohol Use: Father Hx Cancer: Father, Mother, Brother/Sister, Grandparents Hx Dementia: Mother *Dementia Comment: alzheimers Hx HTN: Mother Hx Seizures: Mother Hx Stroke: Mother H&P Meds/Allergies - Allergies Allergies: Allergies Allergy/AdvReac Type Severity Reaction Status Date / Time acetaminophen [From Vicodin] Allergy ANAPHYLAXIS Verified 11/27/17 12:06 adhesive Allergy RASH Verified 11/27/17 12:06 hydrocodone bitartrate Allergy ANAPHYLAXIS Verified 11/27/17 12:06 [From Vicodin] indomethacin [From Indocin] Allergy ANAPHYLAXIS Verified 11/27/17 12:06 indomethacin sodium Allergy ANAPHYLAXIS Verified 11/27/17 12:06 [From Indocin] - Active Medications Active Medications: Current Medications Hydrochlorothiazide (Hctz 25mg) 25 mg PO DAILY [facility] Hydromorphone HCl (Dilaudid) 0.5 mg IVP Q4H PRN PRN Reason: PAIN - MOD TO SEVERE (5-10) Last Admin: 11/28/17 05:12 Dose: 0.5 mg Lidocaine (Lidoderm) 1 each TOP DAILY [facility] Loratadine (Claritin) 10 mg PO DAILY [facility] Miscellaneous (Remove Patch) 1 each TD QHS [facility] Last Admin: 11/27/17 21:07 Dose: Not Given Ondansetron HCl (Zofran) 4 mg IVP Q6H PRN PRN Reason: NAUSEA Last Admin: 11/27/17 20:36 Dose: 4 mg Pantoprazole Sodium (Protonix) 40 mg PO DAILYAC CHRISTIE Last Admin: 11/28/17 06:46 Dose: 40 mg Tramadol HCl (Ultram) 50 mg PO QID PRN PRN Reason: PAIN - MILD (1-4) Last Admin: 11/28/17 05:12 Dose: 50 mg Physical Exam - Vital Signs Vital Signs: Vital Signs - Last 24 Hrs Temp Pulse Pulse Resp BP BP Pulse Ox 11/28/17 06:00 98.1 F 64 16 134/62 93 L 11/27/17 22:00 98.9 F 60 17 113/54 98 11/27/17 16:45 97.7 F 52 L 18 134/69 98 11/27/17 14:01 65 18 136/65 96 11/27/17 12:08 97.8 F 60 20 141/66 95 - General General Appearance: Alert, Oriented x3, Cooperative, Moderate distress Limitations: No limitations - Head Head exam: Normal inspection - Eye Eye exam: Normal appearance, PERRL, EOMI Pupils: Normal accommodation - ENT ENT exam: Normal exam, Mucous membranes moist, Normal external ear exam, Normal orophraynx Ear exam: Normal external inspection. negative: External canal tenderness Nasal Exam: Normal inspection. negative: Discharge, Sinus tenderness Mouth exam: Normal external inspection, Tongue normal Teeth exam: Normal inspection. negative: Dental caries Throat exam: Normal inspection. negative: Tonsillar erythema, Tonsillar exudate - Neck Neck exam: Normal inspection, Full ROM. negative: Tenderness - Respiratory Respiratory exam: Normal lung sounds bilaterally, Chest wall tenderness. negative: Respiratory distress - Cardiovascular Cardiovascular Exam: Regular rate, Normal rhythm, Normal heart sounds Peripheral Pulses: 3+: Dorsalis Pedis (R), Dorsalis Pedis (L) - GI/Abdominal GI/Abdominal exam: Soft, Normal bowel sounds, Tenderness - Rectal Rectal exam: Deferred - exam: Deferred - Extremities Extremities exam: Normal inspection, Full ROM, Normal capillary refill. negative: Tenderness - Back Back exam: Reports: Normal inspection, CVA tenderness (L), Full ROM. Denies: Muscle spasm, Rash noted, Tenderness - Neurological Neurological exam: Alert, CN II-XII intact, Normal gait, Oriented X3 - Psychiatric Psychiatric exam: Normal affect, Normal mood - Skin Skin exam: Dry, Intact, Normal color, Warm Results - Labs Result Diagrams: 11/27/17 12:41 11/27/17 12:41 Labs Last 24 Hours: Laboratory Results - last 24 hr 11/27/17 11/27/17 11/28/17 12:41 12:41 08:30 WBC 20.0 H RBC 4.22 Hgb 12.2 Hct 38.3 MCV 90.8 MCH 28.9 MCHC 31.9 L RDW 15.6 H Plt Count 212 MPV 8.9 Neutrophils % 29.0 L Band Neutrophils % 0.0 Eosinophils % Not Reportable Basophils % Not Reportable Lymphocytes 69.0 H Monocytes 2.0 Basophils 0.0 Eosinophil Count 0.0 Sodium 141 Potassium 3.7 Chloride 99 Carbon Dioxide 33.0 H Anion Gap 9.0 BUN 23 Creatinine 0.6 Estimated GFR > 60 Random Glucose 94 Calcium 9.7 Total Bilirubin 0.50 AST 21 ALT 17 Alkaline Phosphatase 58 Total Protein 6.0 L Albumin 3.8 L Globulin 2.2 Albumin/Globulin Ratio 1.7 Urine Color Yellow Urine Appearance Sl cloudy Urine pH 5.5 Ur Specific Macy 1.025 Urine Protein 30 mg/dl H Urine Glucose (UA) Negative Urine Ketones Negative Urine Blood Trace-i Urine Nitrite Negative Urine Bilirubin Negative Urine Urobilinogen 0.2 Ur Leukocyte Esterase Negative Urine RBC 3 - 6 Urine WBC 3 - 5 Ur Epithelial Cells 0 - 2 Urine Bacteria 4+ - Imaging and Cardiology CT scan - pelvis Status: Report reviewed (1- non-displaced left rib fracture) CT scan - chest Status: Report reviewed (1- left rib 5,6,7 non displaced rib fractures, 2- pulmonary nodues 4mm 3- right thyroid gland nodule) VTE H&P Assessment - Risk for VTE Risk for VTE: Yes Risk Level: Moderate Risk Assessment Date: 11/28/17 Risk Assessment Time: 12:26 VTE Orders Placed or Will Be Placed: Yes Plan - Detailed Diagnosis and Plan (1) Multiple rib fractures Current Visit: Yes Status: Acute Qualifiers: Encounter type: initial encounter Fracture type: closed Laterality: left Qualified Code(s): S22.42XA - Multiple fractures of ribs, left side, initial encounter for closed fracture Base Code: S22.49XA - MULTIPLE FRACTURES OF RIBS, UNSP SIDE, INIT FOR CLOS FX Comment: 11/28/17 - CT chest reveals non displaced fractures of left ribs 5,6,7 - IS hourly - Pain control with Percocet 7.5/325mg Q 4hr PRN, Dilaudid 0.5mg IVP @ 4 hr PRN , Ultram 50mg QID PRN, Flexeril 5mg Q6hr PRN muscle spasms - PT/OT (2) Leukocytosis Current Visit: Yes Status: Acute Base Code: D72.829 - ELEVATED WHITE BLOOD CELL COUNT, UNSPECIFIED Comment: 11/28/17 - WBC 20 in the ED, etiology trauma vs. infection. Has been afebrile, denies cough or dysuria - Repeat CBC in am - Recent gastroenteritis - U/A with C&S pending (3) Pulmonary nodules Current Visit: Yes Status: Acute Base Code: R91.8 - OTHER NONSPECIFIC ABNORMAL FINDING OF LUNG FIELD Comment: 11/28/17 - Incidental finding on chest CT, nodules no larger than 4mm - Radiologist recommends follow up chest CT in 12 months (4) Thyroid nodule Current Visit: Yes Status: Acute Base Code: E04.1 - NONTOXIC SINGLE THYROID NODULE Comment: 11/28/17 - Incidental finding of right thyroid gland nodule - Radiologist recommends follow up ultrasound of thyroid on a non-emergent basis (5) DVT prophylaxis Current Visit: Yes Status: Acute Base Code: [id number] - Comment: 11/28/17 - Lovenox 40mg QD - nursing to encourage frequent ambulation - PT/OT (6) Full code status Current Visit: Yes Status: Acute Base Code: Z78.9 - OTHER SPECIFIED HEALTH STATUS Comment: 11/28/17
[2017-11-28] MEDS ORDERED: HYDROCORTISONE 1% CREAM 28.35 GM TUBE TOP PRN (09:43)
--- NOTE | 2017-11-28 12:36 | Rehab Evaluation ---
Patient Information - Patient Information Diagnosis: Rib fx 5,6,7 from fall Ordered Treatment: OT Evaluate and Treat Status: Initial Evaluation History: Detail (Pt sustained injuries from a fall while trying to hang a basket.) Past Medical/Surgical Hx: PAST MEDICAL/SURGICAL HISTORY Past Surgical History Hysterectomy Appendectomy Cholecystectomy Left shoulder reconstruction T &A Breast Reduction PMH - Respiratory Hx Respiratory Disorders No PMH - Cardiovascular Hx Cardiovascular Disorders No PMH - Neuro Hx Neurological Disorders No PMH - GI Hx Gastrointestinal Disorders Yes Hx Gastroesophageal Reflux Yes Comment: diarrhea and nausea PMH - Hx Genitourinary Disorders Yes Hx Kidney Stones Yes Hx Urinary Tract Infection Yes PMH - Endocrine Hx Endocrine Disorders No Hx Diabetes No Hx Thyroid Disease No PMH - Musculoskeletal Hx Musculoskeletal Disorders Yes Hx Arthritis Yes Hx Back Injury Yes Hx Fibromyalgia Yes Hx Gout No Hx Musculoskeletal Disease No Hx Osteoporosis Yes Comment: lupus PMH - Psych Hx Psychiatric Problems No PMH - Hematology/Oncology Hx Hematology/Oncology Yes Disorders Hx Anemia No Hx Blood Disorders Yes: CLL Hx Bruising Yes Hx Cancer Yes: CLL Hx Chemotherapy No Hx Radiation Therapy No Hx Clotting Problems No Hx Sickle Cell Disease No Hx Unexplained Bleeding No Hx Blood Transfusion Reaction No Comment: Lupus Premorbid 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 Her son also lives in the same house. There are 3 steps to enter with railing on L side. No steps present on main floor once inside the house. Pt's bedroom and bathroom are located on the first floor. BR consists of no grab bars , a "low boy" toilet (which she had trouble t/f'ing on and off of even prior to incident), and a Jacuzzi tub. There is no shower located on the first floor and patient usually bathes in Jacuzzi tub. Tub is high requiring good ROM to be able to get into. Daughter and son-in-law work during the day, however, pt's son is home during the day but suffers from back issues. Pt feels son could assist with some ADLs such as sock, shoes, underwear, and pants don. Discussed briefly ADL equipment that is available should she find she needs more help.) Precautions: [place], Fall - Time With Patient Total Time Spent With Patient (Min): 25 Treatment Procedures: Detail (OT eval Mod) Subjective Information - Subjective Information Per Patient (Pt informed therapist that she "just got back into bed." Pt refused to bed mobility, t/fs, or any mobility. Will follow-up with physical therapy on these once they are able to asses patient. Pt was informed that therapists will need to see some of these tasks in order to better make recommendations of what equipment she may need. Pt was agreeable to try it but at another time.) Objective Data - Pain Pain Present: Yes Pain Intensity: 8 (Left side/arm) Pain Scale Used: Numeric (1 - 10) - Mental Status Patient Orientation: Oriented x3 - Visual Perception Appears within normal limits for therapeutic activities - ROM Not within normal limits (Pain is limiting full ROM of RUE at this time. Patient is within functional norms to be able to complete ADLs on R side and is able to acheive shld flex to ~135 deg. Elbow flex/ext WNL karen. L arm is more affected due to pain and patient reports she had reconstruction sx on this shld years ago and has had limited ROM since. Able to acheive shld flex on the L to ~ 120 degrees. Other LUE shld ROM not evaluated secondary to patients increasing pain.) - Strength/Tone Not within normal limits (Gentle MMT done to RUE. Pt shows 3+/5 shld flex, 3/5 shld ext with pain, Elbow flex 4/5 but increases pain. LUE was not fully evaluated at this time due to very gently pressure applied for shld flex and increased pain caused.) - Coordination Appears within normal limits for therapeutic activities - Bed Mobility Needs Assist (Follow-up on bed mobility, t/f's and ambulation with physical therapy as patient was not willing to move out of bed at this time due to just having gotten into it and high pain levels.) - Sensation Intact - ADL's/IADL's Detail (ADLs not assesed due to patient not wanting to move out of bed due to pain and having just gotten in bed. She has assistance at home from her son to help with shoes, socks, underwear and pants don/doff if needed. Patient currently has been doing pivot t/f's to bedside commode for toileting with nsg. Pt has a water-bed which she is concerned about.) Therapy Assessment - Therapy Assessment Detail (Pt presents with high pain levels that increase with movement making mobility, t/f's, BUE movement difficult. These limitations in ROM and mobility due to pain will make completing ADLs difficult. Feel patient would benefit from a commode due to strength needed to pushup into standing if having to use her "low boy" toilet she has at home. Pt would also benefit from hospital bed or alternative sleeping surface due to the fact that her water bed would cause increased pain and difficulty to try and move on and off of. Hesitant to recommend w/c due to unable to evaluate pt's functional mobility and it could hinder any improvements to be made with mobility and UE movement that comes from natural gait patterns. Will consult with physical therapy after they are able to evaluate. Pt would benefit from home OT/PT services.)
[2017-11-28] MEDS: OXYCODONE/APAP 7.5MG/325MG TABLET PO PRN ×2 (14:12→21:34)
[2017-11-28] MEDS: CYCLOBENZAPRINE 10MG TABLET PO PRN ×2 (15:06→21:35)
--- NOTE | 2017-11-28 19:46 | Rehab Evaluation ---
Patient Information - Patient Information Diagnosis: Rib fx 5,6,7 from fall Ordered Treatment: PT Evaluate and Treat Status: Initial Evaluation Surgery: No History: Detail (Pt sustained injuries from a fall while trying to hang a basket. States she lost her balance when she stepped to the second step of a two-step footstool. Denies that she was dizzy or faint.) Past Medical/Surgical Hx: PAST MEDICAL/SURGICAL HISTORY Past Surgical History Hysterectomy Appendectomy Cholecystectomy Left shoulder reconstruction T &A Breast Reduction PMH - Respiratory Hx Respiratory Disorders No PMH - Cardiovascular Hx Cardiovascular Disorders No PMH - Neuro Hx Neurological Disorders No PMH - GI Hx Gastrointestinal Disorders Yes Hx Gastroesophageal Reflux Yes Comment: diarrhea and nausea PMH - Hx Genitourinary Disorders Yes Hx Kidney Stones Yes Hx Urinary Tract Infection Yes PMH - Endocrine Hx Endocrine Disorders No Hx Diabetes No Hx Thyroid Disease No PMH - Musculoskeletal Hx Musculoskeletal Disorders Yes Hx Arthritis Yes Hx Back Injury Yes Hx Fibromyalgia Yes Hx Gout No Hx Musculoskeletal Disease No Hx Osteoporosis Yes Comment: lupus PMH - Psych Hx Psychiatric Problems No PMH - Hematology/Oncology Hx Hematology/Oncology Yes Disorders Hx Anemia No Hx Blood Disorders Yes: CLL Hx Bruising Yes Hx Cancer Yes: CLL Hx Chemotherapy No Hx Radiation Therapy No Hx Clotting Problems No Hx Sickle Cell Disease No Hx Unexplained Bleeding No Hx Blood Transfusion Reaction No Comment: Lupus Premorbid 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 She was using an ankle-foot immobilizer intermittently on the left foot to manage chronic tendonitis, but she was not wearing it when she fell.) Social History: Detail (Pt lives in a 2-story house with her son-in-law & daughter. Her son also lives in the same house. There are 3 steps to enter with railing on L side. No steps present on main floor once inside the house. Pt's bedroom and bathroom are located on the first floor. BR consists of no grab bars , a "low boy" toilet (which she had trouble t/f'ing on and off of even prior to incident), and a Jacuzzi tub. There is no shower located on the first floor and patient usually bathes in Jacuzzi tub. Tub is high requiring good ROM to be able to get into. Daughter and son-in-law work during the day, however, pt's son is home during the day but suffers from back issues. Pt feels son could assist with some ADLs such as sock, shoes, underwear, and pants don. Discussed briefly ADL equipment that is available should she find she needs more help.) Precautions: [place], Fall - Time With Patient Total Time Spent With Patient (Min): 45 Treatment Procedures: Detail (PT Evaluation) Subjective Information - Subjective Information Per Patient (Pt lying in bed upon arrival, awake/alert, states she just got into bed from sitting up for about half-hour in bedside chair.) Objective Data - Pain Pain Present: Yes Pain Intensity: 10 (Intermittent spasms L trunk/ribs) Pain Scale Used: Numeric (1 - 10) - Mental Status Patient Orientation: Oriented x3 - Visual Perception Appears within normal limits for therapeutic activities - ROM Within normal limits (AROM in B LE's is grossly WNL at hips, knees, ankles.) - Strength/Tone Not within normal limits (B hip flexion and extension are 4/5, B hip abduction and adduction are 4+/5 as are B knee flexion and extension, and B ankle dorsiflexion.) - Coordination Appears within normal limits for therapeutic activities - Bed Mobility Needs Assist (Required minimal assist for rolling onto R side and to push up from sidelying to sitting and for assuming supine from sitting. Heavy moderate assist to scoot up in bed.) - Transfers Needs Assist (CGA for sit/stand transfer from bed height or bedside chair. Verbalizes difficulty transferring to/from toilet in bathroom; has been using bedside commode. Discussed with patient and nrsg that commode be placed over toilet to encourage mobility.) - Balance Balance Sitting: Good Balance Standing: Fair (Good static standing balance unsupported, but appears somewhat unsteady with initiating gait, due to clutching bath blanket on L to splint ribs.) - Sensation Intact - Gait Detail (Ambulated from bedside to door and back to bedside (22 feet) with WARPER TENDER/ CGA with short, hesitating steps due to rib pain with movement.) Therapy Assessment - Therapy Assessment Detail (Pt exhibits difficulty with bed mobility, transfers, and gait due to severe rib pain associated with movement. She is a good candidate for inpatient physical therapy to ensure safety with mobility and encourage mobility to prevent further complications from immobilization.) Patient Education - Patient Education Teaching Topic: Coping Skills, Disease Process, Exercise/Activity, Precautions Response: Verbalize Understanding Teaching Method: Discussion Teaching Recipient: Patient Barriers To Learning: None Problem List - Problem List Physical Therapy Problem List: Detail (1. Requires assistance with bed mobility and transfers. 2. Difficulty walking. 3. Proximal lower extremity weakness. 4. Impaired activity tolerance.) Goals - Goals Physical Therapy Goals: 1. Pt will require CGA for supine<>sit mobility. 2. Pt will require supervision only for sit/stand transfers. 3. Pt will ambulate over household distances with supervision, with appropriate assistive device, if any. Prognosis - Prognosis Good Plan - Plan Physical Therapy Plan: Pt will be seen 1-2 times daily M-F for LE strengthening , bed mobility and transfer training, gait and balance training.
[2017-11-28] MEDS: REMOVE PATCH 1 EACH MISC TD SCH (22:29)
[2017-11-29] MEDS: OXYCODONE/APAP 7.5MG/325MG TABLET PO PRN ×5 (02:47→20:29)
[2017-11-29 06:31] LABS: HEMATOCRIT 38.4 % (35.0-47.0); HEMOGLOBIN 12.2 gm/dl (11.6-16.0); MEAN CELL VOLUME 91.9 fl (81-97); MEAN CORPUSCULAR HEMOGLOBIN 29.2 pg (27-33); MEAN CORPUSCULAR HGB CONC 31.8 g/dl (32-36); PLATELET COUNT 206 K/uL (130-400); RED BLOOD COUNT 4.18 M/uL (3.80-5.40); RED CELL DISTRIBUTION WIDTH 15.8 % (11.5-14.5); WHITE BLOOD COUNT W/O DIFF 17.7 K/uL (4.2-12.2)
[2017-11-29] MEDS: PANTOPRAZOLE SODIUM 40 MG TABLET PO SCH (07:41)
[2017-11-29] MEDS: CYCLOBENZAPRINE 10MG TABLET PO PRN (07:48)
[2017-11-29] MEDS: NITROFURANTOIN MONO 100 MG CAPSULE PO SCH ×3 (08:42→22:03)
--- NOTE | 2017-11-29 09:58 | Physician Progress Note ---
Subjective - Date Date of Physician Progress Note: 11/29/17 - Subjective Subjective Comment: No new concerns from nursing. Urinalysis showes UTI, culture pending. Patient remains symptomatic with texbook symptoms but may have been contributing factor to recent fall from the step stool. Patient reports her pain is much improved with use of Percocet and is able to get out of be a little easier. Reports Flexeril made her very sleepy. Objective - Vital Signs Vital Signs: Vital Signs - Last 24 Hrs Temp Pulse Resp BP Pulse Ox 11/29/17 06:00 97.3 F L 64 16 154/75 97 11/28/17 22:00 98.6 F 75 17 161/81 96 11/28/17 14:00 98.8 F 61 18 117/59 93 L 11/28/17 10:00 97.9 F 59 L 18 122/64 90 L - General General Appearance: Alert, Oriented x3, Cooperative, No acute distress Limitations: No limitations - Head Head exam: Normal inspection - Eye Eye exam: Normal appearance, PERRL, EOMI Pupils: Normal accommodation - ENT ENT exam: Normal exam, Mucous membranes moist, Normal external ear exam, Normal orophraynx Ear exam: Normal external inspection. negative: External canal tenderness Nasal Exam: Normal inspection. negative: Discharge, Sinus tenderness Mouth exam: Normal external inspection, Tongue normal Teeth exam: Normal inspection. negative: Dental caries Throat exam: Normal inspection. negative: Tonsillar erythema, Tonsillar exudate - Neck Neck exam: Normal inspection, Full ROM. negative: Tenderness - Respiratory Respiratory exam: Normal lung sounds bilaterally, Chest wall tenderness. negative: Respiratory distress - Cardiovascular Cardiovascular Exam: Regular rate, Normal rhythm, Normal heart sounds Peripheral Pulses: 3+: Dorsalis Pedis (R), Dorsalis Pedis (L) - GI/Abdominal GI/Abdominal exam: Soft, Normal bowel sounds, Tenderness - Rectal Rectal exam: Deferred - exam: Deferred - Extremities Extremities exam: Normal inspection, Full ROM, Normal capillary refill. negative: Tenderness - Back Back exam: Reports: Normal inspection, CVA tenderness (L), Full ROM. Denies: Muscle spasm, Rash noted, Tenderness - Neurological Neurological exam: Alert, CN II-XII intact, Normal gait, Oriented X3 - Psychiatric Psychiatric exam: Normal affect, Normal mood - Skin Skin exam: Dry, Intact, Normal color, Warm Assessment and Plan - Assessment and Plan (1) Multiple rib fractures Current Visit: Yes Status: Acute Qualifiers: Encounter type: initial encounter Fracture type: closed Laterality: left Qualified Code(s): S22.42XA - Multiple fractures of ribs, left side, initial encounter for closed fracture Base Code: S22.49XA - MULTIPLE FRACTURES OF RIBS, UNSP SIDE, INIT FOR CLOS FX Comment: 11/29/17 - CT chest reveals non displaced fractures of left ribs 5,6,7 - IS hourly - Pain control with Percocet 7.5/325mg Q 4hr PRN, Dilaudid 0.5mg IVP @ 4 hr PRN , Ultram 50mg QID PRN - Percocet is working well for pain, allowing her to be more mobile - PT/OT (2) UTI (urinary tract infection) Current Visit: Yes Status: Acute Base Code: N39.0 - URINARY TRACT INFECTION , SITE NOT SPECIFIED Comment: 11/29/17 - Macrobid 100mg BID x 5 days - urine culture pending (3) Leukocytosis Current Visit: Yes Status: Acute Base Code: D72.829 - ELEVATED WHITE BLOOD CELL COUNT, UNSPECIFIED Comment: 11/29/17 - WBC 20 in the ED, etiology trauma vs. infection. Has been afebrile, denies cough or dysuria - WBC 17.7 today, urinalysis and micro positive for infection - Urine culture pending - Macrobid 100mg BID x 5 days (4) Pulmonary nodules Current Visit: Yes Status: Acute Base Code: R91.8 - OTHER NONSPECIFIC ABNORMAL FINDING OF LUNG FIELD Comment: 11/29/17 - Incidental finding on chest CT, nodules no larger than 4mm - Radiologist recommends follow up chest CT in 12 months (5) Thyroid nodule Current Visit: Yes Status: Acute Base Code: E04.1 - NONTOXIC SINGLE THYROID NODULE Comment: 11/29/17 - Incidental finding of right thyroid gland nodule - Radiologist recommends follow up ultrasound of thyroid on a non-emergent basis (6) DVT prophylaxis Current Visit: Yes Status: Acute Base Code: [id number] - Comment: 11/29/17 - Lovenox 40mg QD - nursing to encourage frequent ambulation - PT/OT (7) Full code status Current Visit: Yes Status: Acute Base Code: Z78.9 - OTHER SPECIFIED HEALTH STATUS Comment: 11/29/17 Results - Labs Result Diagrams: 11/29/17 06:05 11/27/17 12:41 Labs Last 24 Hours: Laboratory Results - last 24 hr 11/29/17 06:05 WBC 17.7 H RBC 4.18 Hgb 12.2 Hct 38.4 MCV 91.9 MCH 29.2 MCHC 31.8 L RDW 15.8 H Plt Count 206 MPV 9.0 Neutrophils % 49.0 Band Neutrophils % 6.0 H Eosinophils % Not Reportable Basophils % Not Reportable Lymphocytes 41.0 Monocytes 3.0 Basophils 1.0 DVT/PE Assessment - Risk for VTE Risk for VTE: No Risk Level: Moderate Risk Assessment Date: 11/28/17 Risk Assessment Time: 12:26 VTE Orders Placed or Will Be Placed: Yes - Active Medicaitons Current Medications: Current Medications Enoxaparin Sodium (Lovenox) 40 mg SQ DAILY [facility] Hydrochlorothiazide (Hctz 25mg) 25 mg PO DAILY [facility] Last Admin: 11/28/17 09:10 Dose: 25 mg Hydrocortisone (Hydrocortisone) 28.35 gm TOP Q6HR PRN PRN Reason: ITCHING Hydromorphone HCl (Dilaudid) 0.5 mg IVP Q4H PRN PRN Reason: PAIN - MOD TO SEVERE (5-10) Last Admin: 11/28/17 05:12 Dose: 0.5 mg Lidocaine (Lidoderm) 1 each TOP DAILY [facility] Last Admin: 11/28/17 09:09 Dose: 1 each Loratadine (Claritin) 10 mg PO DAILY [facility] Last Admin: 11/28/17 09:10 Dose: 10 mg Miscellaneous (Remove Patch) 1 each TD QHS [facility] Last Admin: 11/28/17 22:29 Dose: 1 each Nitrofurantoin Macrocrystals (Macrobid) 100 mg PO BID [facility] Stop: 12/04/17 08:11 Last Admin: 11/29/17 08:42 Dose: 100 mg Ondansetron HCl (Zofran) 4 mg IVP Q6H PRN PRN Reason: NAUSEA Last Admin: 11/27/17 20:36 Dose: 4 mg Oxycodone/Acetaminophen (Percocet 7.5-325 Mg Tablet) 1 each PO Q4H PRN PRN Reason: PAIN - MILD TO MODERATE (1-7) Stop: 12/05/17 10:20 Last Admin: 11/29/17 07:42 Dose: 1 each Pantoprazole Sodium (Protonix) 40 mg PO DAILYAC [facility] Last Admin: 11/29/17 07:41 Dose: 40 mg Tramadol HCl (Ultram) 50 mg PO QID PRN PRN Reason: PAIN - MILD (1-4) Last Admin: 11/28/17 05:12 Dose: 50 mg AMI Plan - Labs Result Diagrams: 11/29/17 06:05 11/27/17 12:41
[2017-11-29] MEDS: LORATADINE 10 MG TABLET PO SCH (10:09)
[2017-11-29] MEDS: LIDOCAINE 5% PATCH TOP SCH (10:09)
[2017-11-29] MEDS: HYDROCHLOROTHIAZIDE 25 MG TABLET PO SCH (10:09)
[2017-11-29] MEDS: ENOXAPARIN 40 MG/0.4 ML SYR SQ SCH (10:09)
[2017-11-29] MEDS: POLYETHYLENE GLY 17 GM PACKET PO SCH (10:18)
[2017-11-29] MEDS: REMOVE PATCH 1 EACH MISC TD SCH (22:03)
[2017-11-30] MEDS: OXYCODONE/APAP 7.5MG/325MG TABLET PO PRN ×4 (00:37→20:57)
[2017-11-30] MEDS: PANTOPRAZOLE SODIUM 40 MG TABLET PO SCH (06:36)
[2017-11-30] MEDS: ENOXAPARIN 40 MG/0.4 ML SYR SQ SCH (09:26)
[2017-11-30] MEDS: LORATADINE 10 MG TABLET PO SCH (09:27)
[2017-11-30] MEDS: POLYETHYLENE GLY 17 GM PACKET PO SCH (09:27)
[2017-11-30] MEDS: NITROFURANTOIN MONO 100 MG CAPSULE PO SCH ×3 (09:27→22:11)
[2017-11-30] MEDS: HYDROCHLOROTHIAZIDE 25 MG TABLET PO SCH (09:27)
[2017-11-30] MEDS: LIDOCAINE 5% PATCH TOP SCH (09:32)
--- NOTE | 2017-11-30 16:18 | Physician Progress Note ---
Subjective - Date Date of Physician Progress Note: 11/30/17 - Subjective Subjective Comment: No new nursing concerns over night. Patient reports Percocet is still effective for pain, was able to walk about 100ft yesterday. Still quite painful with all movement and having difficulty with alexus care after toileting due to pain and difficulty twisting torso. Is tolerating Macrobid without adverse reaction. Did move bowels last night after receiving Miralax. Plan to admit to swing bed program in the am. Objective - Vital Signs Vital Signs: Vital Signs - Last 24 Hrs Temp Pulse Resp BP Pulse Ox 11/30/17 14:00 98.5 F 72 16 139/67 96 11/30/17 09:00 12 11/30/17 06:00 98.1 F 64 12 105/71 94 L 11/29/17 22:00 98.7 F 79 17 141/63 98 11/29/17 16:49 98.0 F 72 16 140/70 94 L - General General Appearance: Alert, Oriented x3, Cooperative, No acute distress Limitations: No limitations - Head Head exam: Normal inspection - Eye Eye exam: Normal appearance, PERRL, EOMI Pupils: Normal accommodation - ENT ENT exam: Normal exam, Mucous membranes moist, Normal external ear exam, Normal orophraynx Ear exam: Normal external inspection. negative: External canal tenderness Nasal Exam: Normal inspection. negative: Discharge, Sinus tenderness Mouth exam: Normal external inspection, Tongue normal Teeth exam: Normal inspection. negative: Dental caries Throat exam: Normal inspection. negative: Tonsillar erythema, Tonsillar exudate - Neck Neck exam: Normal inspection, Full ROM. negative: Tenderness - Respiratory Respiratory exam: Normal lung sounds bilaterally, Chest wall tenderness. negative: Respiratory distress - Cardiovascular Cardiovascular Exam: Regular rate, Normal rhythm, Normal heart sounds Peripheral Pulses: 3+: Dorsalis Pedis (R), Dorsalis Pedis (L) - GI/Abdominal GI/Abdominal exam: Soft, Normal bowel sounds, Tenderness - Rectal Rectal exam: Deferred - exam: Deferred - Extremities Extremities exam: Normal inspection, Full ROM, Normal capillary refill. negative: Tenderness - Back Back exam: Reports: Normal inspection, CVA tenderness (L), Full ROM. Denies: Muscle spasm, Rash noted, Tenderness - Neurological Neurological exam: Alert, CN II-XII intact, Normal gait, Oriented X3 - Psychiatric Psychiatric exam: Normal affect, Normal mood - Skin Skin exam: Dry, Intact, Normal color, Warm Assessment and Plan - Assessment and Plan (1) Multiple rib fractures Current Visit: Yes Status: Acute Qualifiers: Encounter type: initial encounter Fracture type: closed Laterality: left Qualified Code(s): S22.42XA - Multiple fractures of ribs, left side, initial encounter for closed fracture Base Code: S22.49XA - MULTIPLE FRACTURES OF RIBS, UNSP SIDE, INIT FOR CLOS FX Comment: 11/30/17 - CT chest reveals non displaced fractures of left ribs 5,6,7 - IS hourly - Pain control with Percocet 7.5/325mg Q 4hr PRN, Dilaudid 0.5mg IVP @ 4 hr PRN , Ultram 50mg QID PRN - Percocet is working well for pain, allowing her to be more mobile - PT/OT - swing bed admission 12/01 (2) UTI (urinary tract infection) Current Visit: Yes Status: Acute Base Code: N39.0 - URINARY TRACT INFECTION , SITE NOT SPECIFIED Comment: 11/30/17 - Macrobid 100mg BID x 5 days - urine culture pending (3) Leukocytosis Current Visit: Yes Status: Acute Base Code: D72.829 - ELEVATED WHITE BLOOD CELL COUNT, UNSPECIFIED Comment: 11/30/17 - WBC 20 in the ED, etiology most likely infection. Has been afebrile - WBC 17.7 11/29, urinalysis and micro positive for infection - Urine culture pending - Macrobid 100mg BID x 5 days (4) Pulmonary nodules Current Visit: Yes Status: Acute Base Code: R91.8 - OTHER NONSPECIFIC ABNORMAL FINDING OF LUNG FIELD Comment: 11/30/17 - Incidental finding on chest CT, nodules no larger than 4mm - Radiologist recommends follow up chest CT in 12 months (5) Thyroid nodule Current Visit: Yes Status: Acute Base Code: E04.1 - NONTOXIC SINGLE THYROID NODULE Comment: 11/30/17 - Incidental finding of right thyroid gland nodule - Radiologist recommends follow up ultrasound of thyroid on a non-emergent basis (6) DVT prophylaxis Current Visit: Yes Status: Acute Base Code: [id number] - Comment: 11/30/17 - Lovenox 40mg QD - nursing to encourage frequent ambulation - PT/OT (7) Full code status Current Visit: Yes Status: Acute Base Code: Z78.9 - OTHER SPECIFIED HEALTH STATUS Results - Labs Result Diagrams: 11/29/17 06:05 11/27/17 12:41 DVT/PE Assessment - Risk for VTE Risk for VTE: No Risk Level: Moderate Risk Assessment Date: 11/28/17 Risk Assessment Time: 12:26 VTE Orders Placed or Will Be Placed: Yes - Active Medicaitons Current Medications: Current Medications Enoxaparin Sodium (Lovenox) 40 mg SQ DAILY [facility] Last Admin: 11/30/17 09:26 Dose: 40 mg Hydrochlorothiazide (Hctz 25mg) 25 mg PO DAILY [facility] Last Admin: 11/30/17 09:27 Dose: 25 mg Hydrocortisone (Hydrocortisone) 28.35 gm TOP Q6HR PRN PRN Reason: ITCHING Hydromorphone HCl (Dilaudid) 0.5 mg IVP Q4H PRN PRN Reason: PAIN - MOD TO SEVERE (5-10) Last Admin: 11/28/17 05:12 Dose: 0.5 mg Lidocaine (Lidoderm) 1 each TOP DAILY [facility] Last Admin: 11/30/17 09:32 Dose: 1 each Loratadine (Claritin) 10 mg PO DAILY [facility] Last Admin: 11/30/17 09:27 Dose: 10 mg Miscellaneous (Remove Patch) 1 each TD QHS [facility] Last Admin: 11/29/17 22:03 Dose: 1 each Nitrofurantoin Macrocrystals (Macrobid) 100 mg PO BID [facility] Stop: 12/04/17 08:11 Last Admin: 11/30/17 09:27 Dose: 100 mg Ondansetron HCl (Zofran) 4 mg IVP Q6H PRN PRN Reason: NAUSEA Last Admin: 11/27/17 20:36 Dose: 4 mg Oxycodone/Acetaminophen (Percocet 7.5-325 Mg Tablet) 1 each PO Q4H PRN PRN Reason: PAIN - MILD TO MODERATE (1-7) Stop: 12/05/17 10:20 Last Admin: 11/30/17 11:14 Dose: 1 each [facility]op[facility] Last Admin: 11/30/17 06:36 Dose: 40 mg Polyethylene Glycol (Miralax) 17 gm PO DAILY [facility] Last Admin: 11/30/17 09:27 Dose: 17 gm Tramadol HCl (Ultram) 50 mg PO QID PRN PRN Reason: PAIN - MILD (1-4) Last Admin: 11/28/17 05:12 Dose: 50 mg AMI Plan - Labs Result Diagrams: 11/29/17 06:05 11/27/17 12:41
[2017-11-30] MEDS ORDERED: ONDANSETRON 4 MG ODT TABLET SL PRN (17:18)
[2017-11-30] MEDS: REMOVE PATCH 1 EACH MISC TD SCH (23:13)
[2017-12-01] MEDS: OXYCODONE/APAP 7.5MG/325MG TABLET PO PRN ×3 (03:35→15:22)
[2017-12-01] MEDS: PANTOPRAZOLE SODIUM 40 MG TABLET PO SCH (08:19)
[2017-12-01] MEDS ORDERED: HYDROCORTISONE 1% CREAM 28.35 GM TUBE TOP PRN (10:30)
[2017-12-01] MEDS: LORATADINE 10 MG TABLET PO SCH (10:42)
[2017-12-01] MEDS: POLYETHYLENE GLY 17 GM PACKET PO SCH (10:42)
[2017-12-01] MEDS: NITROFURANTOIN MONO 100 MG CAPSULE PO SCH (10:43)
[2017-12-01] MEDS: ENOXAPARIN 40 MG/0.4 ML SYR SQ SCH (10:43)
[2017-12-01] MEDS: HYDROCHLOROTHIAZIDE 25 MG TABLET PO SCH (10:43)
[2017-12-01] MEDS: LIDOCAINE 5% PATCH TOP SCH (10:43)
--- NOTE | 2017-12-01 11:37 | Discharge Summary ---
Providers Discharge Summary Date: 12/01/17 Date of admission: 11/28/17 11:02 Expected Date of Discharge: 12/01/17 Attending physician: YANET COLÓN Primary care physician: OSWALDO BERTRAND D.O. Physical Exam - Vital Signs Vital Signs: Vital Signs - Last 24 Hrs Temp Pulse Resp BP Pulse Ox 11/30/17 22:00 97.0 F L 68 16 145/75 96 11/30/17 18:00 99.2 F 77 18 150/70 96 11/30/17 14:00 98.5 F 72 16 139/67 96 - General General Appearance: Alert, Oriented x3, Cooperative, No acute distress Limitations: No limitations - Head Head exam: Normal inspection - Eye Eye exam: Normal appearance, PERRL, EOMI Pupils: Normal accommodation - ENT ENT exam: Normal exam, Mucous membranes moist, Normal external ear exam, Normal orophraynx Ear exam: Normal external inspection. negative: External canal tenderness Nasal Exam: Normal inspection. negative: Discharge, Sinus tenderness Mouth exam: Normal external inspection, Tongue normal Teeth exam: Normal inspection. negative: Dental caries Throat exam: Normal inspection. negative: Tonsillar erythema, Tonsillar exudate - Neck Neck exam: Normal inspection, Full ROM. negative: Tenderness - Respiratory Respiratory exam: Normal lung sounds bilaterally, Chest wall tenderness. negative: Respiratory distress - Cardiovascular Cardiovascular Exam: Regular rate, Normal rhythm, Normal heart sounds Peripheral Pulses: 3+: Dorsalis Pedis (R), Dorsalis Pedis (L) - GI/Abdominal GI/Abdominal exam: Soft, Normal bowel sounds, Tenderness - Rectal Rectal exam: Deferred - exam: Deferred - Extremities Extremities exam: Normal inspection, Full ROM, Normal capillary refill. negative: Tenderness - Back Back exam: Reports: Normal inspection, CVA tenderness (L), Full ROM. Denies: Muscle spasm, Rash noted, Tenderness - Neurological Neurological exam: Alert, CN II-XII intact, Normal gait, Oriented X3 - Psychiatric Psychiatric exam: Normal affect, Normal mood - Skin Skin exam: Dry, Intact, Normal color, Warm Hospitalization - Hospitalization Admission Diagnosis: rib fractures 5,6,7, fall - Problem List/Discharge Diagnosis (1) Multiple rib fractures Current Visit: Yes Status: Acute Discharge Diagnosis: Encounter type: initial encounter Fracture type: closed Laterality: left Qualified Code(s): S22.42XA - Multiple fractures of ribs, left side, initial encounter for closed fracture Base Code: S22.49XA - MULTIPLE FRACTURES OF RIBS, UNSP SIDE, INIT FOR CLOS FX Comment: 12/01/17 - CT chest reveals non displaced fractures of left ribs 5,6,7 - IS hourly - Pain control with Percocet 7.5/325mg Q 4hr PRN, Dilaudid 0.5mg IVP @ 4 hr PRN , Ultram 50mg QID PRN - Percocet is working well for pain, allowing her to be more mobile - PT/OT - swing bed admission 12/01 (2) UTI (urinary tract infection) Current Visit: Yes Status: Acute Base Code: N39.0 - URINARY TRACT INFECTION , SITE NOT SPECIFIED Comment: 12/01/17 - Macrobid 100mg BID x 5 days - urine culture pending- preliminary reports >100,000 e-coli (3) Leukocytosis Current Visit: Yes Status: Acute Base Code: D72.829 - ELEVATED WHITE BLOOD CELL COUNT, UNSPECIFIED Comment: 12/01/17 - WBC 20 in the ED, etiology most likely infection. Has been afebrile - WBC 17.7 11/29, urinalysis and micro positive for infection - Urine culture pending - Macrobid 100mg BID x 5 days (4) Pulmonary nodules Current Visit: Yes Status: Acute Base Code: R91.8 - OTHER NONSPECIFIC ABNORMAL FINDING OF LUNG FIELD Comment: 12/01/17 - Incidental finding on chest CT, nodules no larger than 4mm - Radiologist recommends follow up chest CT in 12 months (5) Thyroid nodule Current Visit: Yes Status: Acute Base Code: E04.1 - NONTOXIC SINGLE THYROID NODULE Comment: 12/01/17 - Incidental finding of right thyroid gland nodule - Radiologist recommends follow up ultrasound of thyroid on a non-emergent basis (6) DVT prophylaxis Current Visit: Yes Status: Acute Base Code: [id number] - Comment: 12/01/17 - Lovenox 40mg QD - nursing to encourage frequent ambulation - PT/OT (7) Full code status Current Visit: Yes Status: Acute Base Code: Z78.9 - OTHER SPECIFIED HEALTH STATUS - Hospitalization Course Disposition: Moved to Swing Bed Hospital Course: Cece Galan is a 77 y/o female brought to ED by EMS s/p fall from a 2 step foot stool while hanging a basket. Denies hitting head or LOC. Lives independently and manage own ADL. Denies any previous change in activity but does report she had acute vomiting, nausea and diarrhea about a week ago that has now resolved. PMX includes fibromyalgia, lupus, leukemia. While in ED abd/pelvis CT showed nod displaced left rib fractures, L1 compression fracture. Chest CT left non displaced 5th, 6th, 7th rib fractures, incidental findings pulmonary nodules no larger than 4mm- recommend follow up chest CT in 12 months, nodule left lobe of thyroid gland, follow up ultrasound on non-emergent bases. WBC 20- acute trauma vs. underlying acute infection. Admitted to floor for pain control, work up/rule out acute infection. 11/28/17- resting in bed, uncomfortable reporting pain level of 9/10. Has been using Dilaudid Q 4 hours for pain. Denies any new symptoms from yesterday, no new concerns from nursing. No fevers overnight. Significant pain with rolling in bed, is requesting home DME to help her with ADLs due to pain. Will collect urine to rule out acute UTI, PT/OT eval for potential home needs, plan to trial oral pain medications with PRN IV Dilaudid for pain control. Potential swing bed candidate for deconditioning due to severe pain 12/01/17- has had increase in activity going to BR and getting out of bed with somewhat improved pain. Has done well on Percocet for pain, still requires assist with bathing and getting out of bed due to pain and difficulty with twisting of torso. Has tolerated Macrobid for UTI. Has moved bowels since starting Miralax Will discharge to Swing Bed program Procedures: Imaging and X-Rays 11/27/17 12:34 ABDOMEN/PELVIS W CONTRAST [CT] Stat CHEST W CONTRAST [CT] Stat Abnormal Labs: Abnormal Lab Results 11/27/17 11/27/17 11/28/17 Range/Units 12:41 12:41 08:30 WBC 20.0 H (4.2-12.2) K/uL MCHC 31.9 L (32-36) g/dl RDW 15.6 H (11.5-14.5) % Neutrophils % 29.0 L (47-80) % Band Neutrophils % (0-5) % Lymphocytes 69.0 H (16-45) % Carbon Dioxide 33.0 H (22-29) mmol/L Total Protein 6.0 L (6.6-8.7) g/dL Albumin 3.8 L (4.0-5.0) g/dL Urine Protein 30 mg/dl H (NEGATIVE) 11/29/17 Range/Units 06:05 WBC 17.7 H (4.2-12.2) K/uL MCHC 31.8 L (32-36) g/dl RDW 15.8 H (11.5-14.5) % Neutrophils % (47-80) % Band Neutrophils % 6.0 H (0-5) % Lymphocytes (16-45) % Carbon Dioxide (22-29) mmol/L Total Protein (6.6-8.7) g/dL Albumin (4.0-5.0) g/dL Urine Protein (NEGATIVE) Discharge Medications - Discharge Medications Home Medications: Ambulatory Orders Calcitonin,[place],Synthetic [Calcitonin-[place]] 1 inh INH DAILY 10/17/13 [Last Taken 05/17/16] Loratadine [Claritin] 10 mg PO DAILY 10/17/13 [Last Taken 05/17/16] Tramadol HCl 50 mg PO QID PRN 10/17/13 [Last Taken 05/17/16] Estrogens, Conjugated [Premarin] 0.3 mg PO DAILY 05/17/16 [Last Taken 05/17/16] Hydrochlorothiazide 25 mg PO DAILY 05/17/16 [Last Taken 05/17/16] Omeprazole [Prilosec] 20 mg PO DAILYAC 05/17/16 [Last Taken 05/17/16] Lidocaine 1 each TOP DAILY 12/01/17 [Last Taken Unknown] Discharge Plan - Discharge Instructions Activity at Discharge: As Per Physical Therapy, Increase Activity as Tolerated Diet at Discharge: Regular Diet Quality Measures - Quality Measures Quality Measures: Advance Directives, Documentation of Current Medications in Medical Record, Elder Maltreatment Screen and Follow-Up Plan, Screening for High Blood Pressure and F/U Documented - Current Medications Quality Measure: Measure #130: Documentation of Current Medications Documentation of Current Medications: <Current Medications Documented/Reviewed> [[id number]] - Blood Pressure Screening Quality Measure: Screening for High Blood Pressure and Follow-Up Documented Does Patient Have Any of the Following: No Blood Pressure Classification: Hypertensive Reading Systolic Measurement: 141 Diastolic Measurement: 66 Screening for High Blood Pressure: < Normal BP, F/U Not Required > [[id number]] - Advance Directives Quality Measure: Measure #47: Care Plan Advance Directives Established: Yes Advance Directives Information Provided To Patient: No Advance Directives on File: No Living Will: Yes Power of Register Of Deeds: Yes Advance Care Planning: <Care Plan/Decision Maker Documented; Discussed & Documented> [[id number]] - Elder Abuse Suspicion Index Screening: Elder Abuse Suspicion Index Screening Rely on people for bathing, dressing, shopping, banking, etc: No Prevented from getting food, clothes, medication, etc: No Made to feel shamed or threatened by someone: No Forced to sign papers or use money against will: No Feel afraid, touched in ways not wanted or hurt physically: No Poor eye contact, withdrawn, malnourished, cuts or bruises: No Screening Result: Negative result EASI Reference Information: Loren HUYNH, Fidel C, Dale D, Juan Jackson.Development and validation of a tool to assist physicians identification of elder abuse: The Elder Abuse Suspicion Index (EASI ). Journal of Elder Abuse and Neglect, 2008; 20 (3): 276-300. - Elder Maltreatment Screen Quality Measures: Elder Maltreatment Screen and Follow-Up Plan Elder Maltreatment Screen: <Negative, No Follow-Up Plan Required> [S0151]
== END 2017-12-01 14:15 | disposition swing bed (61) | DRG 184 ==
LOC: ER 12:00 → MEDSURG 16:41 → OBSVTOIN 11-28 11:02 → MEDSURG 11-29 18:39
PROVIDERS: ADMIT Internal Medicine; ATTEND Internal Medicine
DX: S22.42XA Multiple fractures of ribs, left side, initial encounter for closed fracture (principal); C91.10 Chronic lymphocytic leukemia of B-cell type not having achieved remission; N39.0 Urinary tract infection, site not specified; D72.829 Elevated white blood cell count, unspecified; R91.8 Other nonspecific abnormal finding of lung field; E04.1 Nontoxic single thyroid nodule; W11.XXXA Fall on and from ladder, initial encounter; M79.7 Fibromyalgia; M32.9 Systemic lupus erythematosus, unspecified; M19.90 Unspecified osteoarthritis, unspecified site; K21.9 Gastro-esophageal reflux disease without esophagitis
CPT/HCPCS: 82310; 80053; 81001; 85027; 71260; 74177; 94010; G0378 ×8; Q9967; J1885; J2405 ×2; J1170 ×4; 96374; 96375; 96376; 97166; 99223; 99233; 99239; 99285; J1650

== ENCOUNTER 2017-12-01 09:04 | Inpatient (IN) | payer MEDICARE, BC ==
[2017-12-01] MEDS ORDERED: HYDROCORTISONE 1% CREAM 28.35 GM TUBE TOP PRN (13:06)
[2017-12-01] MEDS ORDERED: ONDANSETRON 4 MG ODT TABLET SL PRN (13:07)
--- NOTE | 2017-12-01 13:12 | History & Physical ---
History of Present Illness - Date Date of Service for History & Physical: 12/01/17 - History of Present Illness History of Present Illness: Cece Galan is a 77 y/o female brought to ED by EMS on 11/28/17 s/p fall from a 2 step foot stool while hanging a basket. Denies hitting head or LOC. Lives independently and manage own ADL. Denies any previous change in activity but does report she had acute vomiting, nausea and diarrhea about a week ago that has now resolved. PMX includes fibromyalgia, lupus, leukemia. While in ED abd/pelvis CT showed nod displaced left rib fractures, L1 compression fracture. Chest CT left non displaced 5th, 6th, 7th rib fractures, incidental findings pulmonary nodules no larger than 4mm- recommend follow up chest CT in 12 months, nodule left lobe of thyroid gland, follow up ultrasound on non-emergent bases. WBC 20- acute trauma vs. underlying acute infection. Admitted to floor for pain control, work up/rule out acute infection. During her inpatient hospitalization she remained painful and required assist with toileting and getting out of bed due to pain and difficulty twisting torso. She had an elevated WBC in ED and found to have a UTI, prelim urine culture positive for e-coli and currently completing a 5 day course of Macrobid 100mg. Has been able to increase activity slowly but not yet independent with ADL and toileting and getting out of bed. She also has a water bed at home that may prove to be difficulty for her to get in and out of at this time. Has done well on Percocet for pain, still requires assist with bathing and getting out of bed due to pain and difficulty with twisting of torso. Has tolerated Macrobid for UTI. Has moved bowels since starting Miralax General - Cognitive Patterns Speech: Normal Thought Process: Intact Thought Content: Normal Orientation: Oriented x3 - Communication Preferred Language?: Tristanian Steerer Required: No Comprehension Ability: No Impairment Able to Read: Yes Able to Write: Yes Select best description of speech pattern: Clear Speech Ability to express ideas and wants: Understood - Mood and Behavior Patterns Appearance: Well Groomed Mood: Normal Attitude: Cooperative Motor Activity: Calm Affect: Appropriate - Nutrition Screening Poor oral intake > 1 week: No Unplanned weight loss in specified time frame: No Nutrition Support via tube feedings or parenteral nutrition: No Pressure Ulcer: No Significantly underweight define as BMI <18.5 kg/m2: No Albumin <2.5mg/dL: No Persistent nausea/vomiting/diarrhea >3 days: No Difficulty chewing/swallowing/mouth sores: No Admitting Diagnosis: No Nutrition Risk Score: Low Risk Review of Systems Constitutional: Reports: As per HPI. Denies: Chills, Fever, Malaise, Night sweats, Weakness, Weight change Eyes: Denies: Eye discharge, Eye pain ENT: Denies: Congestion Respiratory: Denies: Cough Cardiovascular: Denies: Chest pain, Dyspnea on exertion Endocrine: Denies: Fatigue Gastrointestinal: Reports: Constipation. Denies: Abdominal pain Genitourinary: Denies: Dysuria, Urgency Musculoskeletal: Reports: Other (left sided rib pain) Skin: Reports: As per HPI. Denies: Bruising, Change in color, Change in hair/ nails, Lesions, Pruritus, Rash Neurological: Denies: Confusion Past Medical History - SOCIAL HISTORY Smoking Status: Never smoker - SURGICAL HISTORY Past Surgical History: Hysterectomy. Appendectomy. Cholecystectomy. Left shoulder reconstruction. T &A. Breast Reduction - RESPIRATORY Hx Respiratory Disorders: No - CARDIOVASCULAR Hx Cardio Disorders: No - NEURO Hx Neuro Disorders: No - GI Hx GI Disorders: Yes Hx Reflux: Yes Comment:: diarrhea and nausea - Hx Genitourinary Disorders: Yes Hx Kidney Stones: Yes Hx UTI: Yes - ENDOCRINE Hx Endocrine Disorders: No Hx Diabetes: No Hx Thyroid Disease: No - MUSCULOSKELETAL Hx Musculoskeletal Disorders: Yes Hx Arthritis: Yes Hx Back Injury: Yes Hx Fibromyalgia: Yes Hx Gout: No Hx Musculoskeletal Disease: No Hx Osteoporosis: Yes Comment:: lupus - PSYCH Hx Psych Problems: No - HEMATOLOGY/ONCOLOGY Hx Hematology/Oncology Disorders: Yes Hx Anemia: No Hx Blood Disorders: Yes (CLL) Hx Bruising: Yes Hx Cancer: Yes (CLL) Hx Chemotherapy: No Hx Radiation Therapy: No Hx Clotting Problems: No Hx Sickle Cell Disease: No Hx Unexplained Bleeding: No Hx Blood Transfusions: Yes (with labor and delivery of child) Hx Blood Transfusion Reaction: No Comment:: Lupus Family Medical History Hx Alcohol Use: Father Hx Cancer: Father, Mother, Brother/Sister, Grandparents Hx Dementia: Mother *Dementia Comment: alzheimers Hx HTN: Mother Hx Seizures: Mother Hx Stroke: Mother H&P Meds/Allergies - Allergies Allergies: Allergies Allergy/AdvReac Type Severity Reaction Status Date / Time acetaminophen [From Vicodin] Allergy ANAPHYLAXIS Verified 11/27/17 12:06 adhesive Allergy RASH Verified 11/27/17 12:06 hydrocodone bitartrate Allergy ANAPHYLAXIS Verified 11/27/17 12:06 [From Vicodin] indomethacin [From Indocin] Allergy ANAPHYLAXIS Verified 11/27/17 12:06 indomethacin sodium Allergy ANAPHYLAXIS Verified 11/27/17 12:06 [From Indocin] Physical Exam - General General Appearance: Alert, Oriented x3, Cooperative Limitations: No limitations - Head Head exam: Atraumatic, Normocephalic - Eye Eye exam: Normal appearance, PERRL - ENT ENT exam: Normal exam - Neck Neck exam: Full ROM - Respiratory Respiratory exam: Normal lung sounds bilaterally, Chest wall tenderness (left sided rib pain) - Cardiovascular Cardiovascular Exam: Regular rate, Normal rhythm Peripheral Pulses: 3+: Dorsalis Pedis (R), Dorsalis Pedis (L) - GI/Abdominal GI/Abdominal exam: Soft, Normal bowel sounds. negative: Tenderness - Extremities Extremities exam: Normal inspection. negative: Pedal edema - Back Back exam: Reports: Normal inspection - Psychiatric Psychiatric exam: Normal affect, Normal mood - Skin Skin exam: Dry, Warm Plan - Swing Bed Certification Initial Certification Due: 12/01/17 14 Day Re-Cert Due: 12/15/17 44 Day Re-Cert Due: 01/14/18 74 Day Re-Cert Due: 02/13/18 - Detailed Diagnosis and Plan (1) Physical deconditioning Current Visit: Yes Status: Acute Base Code: R53.81 - OTHER MALAISE Comment : 12/01/17 - PT/OT - nursing to encourage frequent ambulation - Percocet for pain control to increase mobility (2) Multiple rib fractures Current Visit: No Status: Acute Qualifiers: Encounter type: initial encounter Fracture type: closed Laterality: left Qualified Code(s): S22.42XA - Multiple fractures of ribs, left side, initial encounter for closed fracture Base Code: S22.49XA - MULTIPLE FRACTURES OF RIBS, UNSP SIDE, INIT FOR CLOS FX Comment: 12/01/17 - CT chest reveals non displaced fractures of left ribs 5,6,7 - IS hourly - Pain control with Percocet 7.5/325mg Q 4hr PRN, Ultram 50mg QID PRN - Percocet is working well for pain, allowing her to be more mobile - PT/OT (3) UTI (urinary tract infection) Current Visit: No Status: Acute Base Code: N39.0 - URINARY TRACT INFECTION, SITE NOT SPECIFIED Comment: 12/01/17 - Macrobid 100mg BID x 5 days - urine culture pending- preliminary reports >100,000 e-coli (4) DVT prophylaxis Current Visit: No Status: Acute Base Code: [id number] - Comment: 12/01/17 - nursing to encourage frequent ambulation - PT/OT (5) Full code status Current Visit: No Status: Acute Base Code: Z78.9 - OTHER SPECIFIED HEALTH STATUS Comment: 12/01/17 - full code during this hospitalization
--- NOTE | 2017-12-01 14:04 | Rehab Evaluation ---
Patient Information - Patient Information Diagnosis: rib fractures 5,6,7 due to fall Ordered Treatment: OT Evaluate and Treat Status: Initial Evaluation Surgery: No Past Medical/Surgical Hx: PAST MEDICAL/SURGICAL HISTORY Past Surgical History Hysterectomy Appendectomy Cholecystectomy Left shoulder reconstruction T &A Breast Reduction PMH - Respiratory Hx Respiratory Disorders No PMH - Cardiovascular Hx Cardiovascular Disorders No PMH - Neuro Hx Neurological Disorders No PMH - GI Hx Gastrointestinal Disorders Yes Hx Gastroesophageal Reflux Yes Comment: diarrhea and nausea PMH - Hx Genitourinary Disorders Yes Hx Kidney Stones Yes Hx Urinary Tract Infection Yes PMH - Endocrine Hx Endocrine Disorders No Hx Diabetes No Hx Thyroid Disease No PMH - Musculoskeletal Hx Musculoskeletal Disorders Yes Hx Arthritis Yes Hx Back Injury Yes Hx Fibromyalgia Yes Hx Gout No Hx Musculoskeletal Disease No Hx Osteoporosis Yes Comment: lupus PMH - Psych Hx Psychiatric Problems No PMH - Hematology/Oncology Hx Hematology/Oncology Yes Disorders Hx Anemia No Hx Blood Disorders Yes: CLL Hx Bruising Yes Hx Cancer Yes: CLL Hx Chemotherapy No Hx Radiation Therapy No Hx Clotting Problems No Hx Sickle Cell Disease No Hx Unexplained Bleeding No Hx Blood Transfusion Reaction No Comment: Lupus Premorbid Status: Detail (Pt lives with daughter, son-in-law and son in a 2 story house with 3 steps and 1 handrailing at the entrance. Her bedroom is on the first floor. The bathroom she generally uses has a jacuzzi tub and a "low boy" toilet. She reports having a small walk in shower on the second floor. She was Ind with all self cares and was primarily responsible for all meal prep , laundry and home mgmt for the household. She ambulated without an assistive device.) Precautions: [place], Fall - Time With Patient Total Time Spent With Patient (Min): 60 Treatment Procedures: Detail (OT eval low complexity) Subjective Information - Subjective Information Per Patient Objective Data - Pain Pain Present: Yes (5/10 rib pain) - Mental Status Patient Orientation: Oriented x3 - Visual Perception Appears within normal limits for therapeutic activities (Pt wears glasses for reading.) - ROM Not within normal limits (Right UE AROM WNL with 4+/5 strength, left shoulder AROM limited to approx. 70 degrees due to rib pain, left elbow, wrist and hand AROM WNL. 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 Pt reports past left shoulder surgery which limited her motion although she reports having much better shoulder flexion previously.) - Coordination Appears within normal limits for therapeutic activities
--- NOTE | 2017-12-01 19:02 | Rehab Evaluation ---
Patient Information - Patient Information Diagnosis: rib fractures 5,6,7 due to fall Ordered Treatment: PT Evaluate and Treat Status: Initial Evaluation Surgery: No History: Detail (Pt sustained injuries from a fall while trying to hang a basket. States she lost her balance when she stepped to the second step of a two-step footstool. Denies that she was dizzy or faint.) Past Medical/Surgical Hx: PAST MEDICAL/SURGICAL HISTORY Past Surgical History Hysterectomy Appendectomy Cholecystectomy Left shoulder reconstruction T &A Breast Reduction PMH - Respiratory Hx Respiratory Disorders No PMH - Cardiovascular Hx Cardiovascular Disorders No PMH - Neuro Hx Neurological Disorders No Hx Seizures No PMH - GI Hx Gastrointestinal Disorders Yes Hx Gastroesophageal Reflux Yes Comment: diarrhea and nausea PMH - Hx Genitourinary Disorders Yes Hx Kidney Stones Yes Hx Urinary Tract Infection Yes PMH - Endocrine Hx Endocrine Disorders No Hx Diabetes No Hx Thyroid Disease No PMH - Musculoskeletal Hx Musculoskeletal Disorders Yes Hx Arthritis Yes Hx Back Injury Yes Hx Fibromyalgia Yes Hx Gout No Hx Musculoskeletal Disease No Hx Osteoporosis Yes Comment: lupus PMH - Psych Hx Psychiatric Problems No PMH - Hematology/Oncology Hx Hematology/Oncology Yes Disorders Hx Anemia No Hx Blood Disorders Yes: CLL Hx Bruising Yes Hx Cancer Yes: CLL Hx Chemotherapy No Hx Radiation Therapy No Hx Clotting Problems No Hx Sickle Cell Disease No Hx Unexplained Bleeding No Hx Blood Transfusion Reaction No Comment: Lupus Premorbid Status: Detail (Pt lives with daughter, son-in-law and son in a 2 story house with 3 steps and 1 handrailing at the entrance. Her bedroom is on the first floor. The bathroom she generally uses has a jacuzzi tub and a "low boy" toilet. She reports having a small walk in shower on the second floor. She was Ind with all self cares and was primarily responsible for all meal prep , laundry and home mgmt for the household. She ambulated without an assistive device. She was using an ankle-foot immobilizer intermittently on the left foot to manage chronic tendonitis, but she was not wearing it when she fell.) Social History: Detail Precautions: [place], Fall - Time With Patient Total Time Spent With Patient (Min): 30 Treatment Procedures: Detail (PT Evaluation, therapeutic exercise) Subjective Information - Subjective Information Per Patient (Pt lying in bed upon arrival, awake/alert, cooperative for therapy. States she is surprised how quickly she is improving.) Objective Data - Pain Pain Present: Yes Pain Intensity: 4 (L ribs) Pain Scale Used: Numeric (1 - 10) - Mental Status Patient Orientation: Oriented x3 - Visual Perception Appears within normal limits for therapeutic activities - ROM Within normal limits (In B LE's) - Strength/Tone Not within normal limits (Grossly 4/5 strength in B hip flexion and extension; the remainder of LE muscle groups are grossly 4+/5.) - Coordination Appears within normal limits for therapeutic activities - Bed Mobility Needs Assist (Able to get out of bed independently on R side w/HOB elevated and footrail in middle position.) - Transfers Needs Assist (Sit/stand transfers w/supervision, from bed and bedside chair.) - Balance Balance Sitting: Good Balance Standing: Good - Sensation Intact - Gait Detail (Ambulated from bedside to nrsg station w/CGA, without assistive device ( about 156 feet).) Therapy Assessment - Therapy Assessment Detail (Pt exhibits difficulty w/bed mobility due to pain, mild proximal LE weakness, and impaired activity tolerance consistent with current condition. She is a good candidate for inpatient rehabilitation.) Patient Education - Patient Education Teaching Topic: Disease Process, Exercise/Activity, Precautions Response: Verbalize Understanding Teaching Method: Discussion Teaching Recipient: Patient Barriers To Learning: None Problem List - Problem List Physical Therapy Problem List: Detail (1. Difficulty with bed mobility. 2. Impaired activity tolerance. 3. Mild proximal LE weakness. 4. Musculoskeletal pain in back and lateral trunk.) Occupational Therapy Problem List: Detail (1. Decreased Left UE motion/ functional use. 2. Decreased Ind with modified techniques for ADLs. 3. Decreased Ind with IADL tasks. 4. Difficulty with sit to stand needed for ADLs.) Goals - Goals Physical Therapy Goals: 1. Pt will be independent with bed mobility. 2. Pt will safely and independently perform all transfers, including toilet. 3. Pt will safely and independently ambulate over household distances/surfaces w/o assistive device. 4. Pt will exhibit 4+/5 strength in B hip flexion and extension for greater stability with gait. 5. Pt will tolerate 20 minutes of low intensity exercise without undue fatigue. Occupational Therapy Goals: 1. Pt will demonstrate left shoulder ROM to 120 degrees to allow Ind with all ADLs/IADLs. 2. Pt will be Ind with self cares utilizing modified techniques as needed. 3. Pt will be Ind with light meal prep activity. 4. Pt will be safe and Ind with sit to stand from various surfaces. Prognosis - Prognosis Good Plan - Plan Physical Therapy Plan: Patient will be seen 1-2 times daily M-F for bed mobility training, transfers, gait/balance training, strengthening and endurance training, to facilitate safe return to home environment. Occupational Therapy Plan: OT 2-4 days per week to address self cares, functional mobility and IADLs.
[2017-12-01] MEDS: OXYCODONE/APAP 7.5MG/325MG TABLET PO PRN (21:47)
[2017-12-01] MEDS: NITROFURANTOIN MONO 100 MG CAPSULE PO SCH (21:48)
[2017-12-01] MEDS: REMOVE PATCH 1 EACH MISC TD SCH (21:50)
[2017-12-02] MEDS: OXYCODONE/APAP 7.5MG/325MG TABLET PO PRN ×4 (03:19→19:40)
[2017-12-02] MEDS: PANTOPRAZOLE SODIUM 40 MG TABLET PO SCH (06:32)
--- NOTE | 2017-12-02 08:31 | Occupational Therapy Tx Note ---
Occupational Therapy Tx Note - Treatment Note Tolerated: Good Total Time Spent With Patient: 35 (ADL) Occupational Therapy Treatment Note: Detail (S: Pt sleeping but easily awoke and ready to get up. O: Supine to sit Indly but guarded using hospital bed rail. Pt doffed slipper socks and gown Indly and donned pants, shirt and slip on shoes Indly but guarded. Sit to stand Indly with increased rib pain and amb to commode and completed toileting Indly. Pt amb to sink and completed grooming /hygiene Indly in standing. Pt amb 75 feet Indly with mild increase in rib pain. Pt stand to sit Indly with pain. A: Ind with functional mobility although she has increased pain. Ind with total body dressing and grooming/ hygiene.) Occupational Therapy Problem List: Detail (1. Decreased Left UE motion/ functional use. 2. Decreased Ind with modified techniques for ADLs. 3. Decreased Ind with IADL tasks. 4. Difficulty with sit to stand needed for ADLs.) Occupational Therapy Goals: 1. Pt will demonstrate left shoulder ROM to 120 degrees to allow Ind with all ADLs/IADLs. 2. Pt will be Ind with self cares utilizing modified techniques as needed. 3. Pt will be Ind with light meal prep activity. 4. Pt will be safe and Ind with sit to stand from various surfaces. Prognosis: Good Occupational Therapy Plan: OT 2-4 days per week to address self cares, functional mobility and IADLs.
[2017-12-02] MEDS: LIDOCAINE 5% PATCH TOP SCH (10:37)
[2017-12-02] MEDS: HYDROCHLOROTHIAZIDE 25 MG TABLET PO SCH (10:37)
[2017-12-02] MEDS: TRAMADOL HCL 50 MG TABLET PO PRN (10:37)
[2017-12-02] MEDS: LORATADINE 10 MG TABLET PO SCH (10:37)
[2017-12-02] MEDS: NITROFURANTOIN MONO 100 MG CAPSULE PO SCH ×2 (10:37→21:16)
[2017-12-02] MEDS: POLYETHYLENE GLY 17 GM PACKET PO SCH (10:38)
[2017-12-02] MEDS: CALCITONIN SALMON INH SCH (10:39)
[2017-12-02] MEDS: PREMARIN 0.3 MG PO SCH (10:40)
--- NOTE | 2017-12-02 11:32 | Physical Therapy Tx Note ---
Physical Therapy Tx Note - Treatment Note Tolerated: Good Total Time Spent With Patient: 20 Physical Therapy Tx Note: Detail (The patient was in bed and fatigued when PT arrived. The patient complained of level 4 pain, L ribs. The patient ambulated 124 feet x 1 without device independently. The patient ambulated on 3 steps with use of railing with supervision for safety only. The patient complained of increased rib pain when ambulating on stairs. The patient's HEP of LE exercises was reviewed including Hip adductor squeezes, hip marching, hip abduction resisted, ankle pumps and LAQ. The patient's PT treatment was limited due to fatigue and pain.) Physical Therapy Problem List: Detail (1. Difficulty with bed mobility. 2. Impaired activity tolerance. 3. Mild proximal LE weakness. 4. Musculoskeletal pain in back and lateral trunk.) Physical Therapy Goals: 1. Pt will be independent with bed mobility. 2. Pt will safely and independently perform all transfers, including toilet. 3. Pt will safely and independently ambulate over household distances/surfaces w/o assistive device. 4. Pt will exhibit 4+/5 strength in B hip flexion and extension for greater stability with gait. 5. Pt will tolerate 20 minutes of low intensity exercise without undue fatigue. Physical Therapy Plan: Patient will be seen 1-2 times daily M-F for bed mobility training, transfers, gait/balance training, strengthening and endurance training, to facilitate safe return to home environment.
[2017-12-02] MEDS: REMOVE PATCH 1 EACH MISC TD SCH (22:00)
[2017-12-03] MEDS: PANTOPRAZOLE SODIUM 40 MG TABLET PO SCH (06:08)
[2017-12-03] MEDS: OXYCODONE/APAP 7.5MG/325MG TABLET PO PRN ×3 (06:09→22:11)
[2017-12-03] MEDS: TRAMADOL HCL 50 MG TABLET PO PRN ×2 (10:10→18:59)
[2017-12-03] MEDS: NITROFURANTOIN MONO 100 MG CAPSULE PO SCH ×2 (10:40→22:02)
[2017-12-03] MEDS: LORATADINE 10 MG TABLET PO SCH (10:40)
[2017-12-03] MEDS: POLYETHYLENE GLY 17 GM PACKET PO SCH (10:40)
[2017-12-03] MEDS: HYDROCHLOROTHIAZIDE 25 MG TABLET PO SCH (10:40)
[2017-12-03] MEDS: CALCITONIN SALMON INH SCH (10:41)
[2017-12-03] MEDS: PREMARIN 0.3 MG PO SCH (10:42)
[2017-12-03] MEDS: PROBIOTIC ACIDOPHILUS PO SCH ×2 (10:42→22:04)
--- NOTE | 2017-12-03 11:43 | Physical Therapy Tx Note ---
Physical Therapy Tx Note - Treatment Note Physical Therapy Tx Note: Detail (Patient was sleeping in bed upon CLOTH CUTTING MACHINE OPERATOR arrival. Patient declined treatment and exercises due to upset stomach. Patient was left supine in bed with call light within reach.) Physical Therapy Problem List: Detail (1. Difficulty with bed mobility. 2. Impaired activity tolerance. 3. Mild proximal LE weakness. 4. Musculoskeletal pain in back and lateral trunk.) Physical Therapy Goals: 1. Pt will be independent with bed mobility. 2. Pt will safely and independently perform all transfers, including toilet. 3. Pt will safely and independently ambulate over household distances/surfaces w/o assistive device. 4. Pt will exhibit 4+/5 strength in B hip flexion and extension for greater stability with gait. 5. Pt will tolerate 20 minutes of low intensity exercise without undue fatigue. Physical Therapy Plan: Patient will be seen 1-2 times daily M-F for bed mobility training, transfers, gait/balance training, strengthening and endurance training, to facilitate safe return to home environment.
--- NOTE | 2017-12-03 15:26 | Occupational Therapy Tx Note ---
Occupational Therapy Tx Note - Treatment Note Tolerated: Good Total Time Spent With Patient: 45 (ADL) Occupational Therapy Treatment Note: Detail (S: Pt not feeling well today and requesting shower. O: Supine to sit Indly with mod discomfort. Sit to stand and amb to toilet Indly. Pt doffed shirt, pants, slipper socks and briefs Indly. Pt completed toileting Indly. Pt completed showering in standing Indly with less pain. Pt Ind with drying self using modified technique for back. Amb to chair Indly, applied lotion to feet and legs with stool and donned shirt , briefs, pants and slipper socks Indly. Pt amb 100 feet Indly with less c/o rib pain. A: Pt is Ind with showering, dressing tasks with less pain.) Occupational Therapy Problem List: Detail (1. Decreased Left UE motion/ functional use. 2. Decreased Ind with modified techniques for ADLs. 3. Decreased Ind with IADL tasks. 4. Difficulty with sit to stand needed for ADLs.) Occupational Therapy Goals: 1. Pt will demonstrate left shoulder ROM to 120 degrees to allow Ind with all ADLs/IADLs. 2. Pt will be Ind with self cares utilizing modified techniques as needed. 3. Pt will be Ind with light meal prep activity. 4. Pt will be safe and Ind with sit to stand from various surfaces. Prognosis: Good Occupational Therapy Plan: OT 2-4 days per week to address self cares, functional mobility and IADLs.
[2017-12-03] MEDS: LIDOCAINE 5% TOP SCH (18:31)
[2017-12-03] MEDS: LIDOCAINE 5% PATCH TOP SCH (18:42)
[2017-12-03] MEDS: REMOVE PATCH 1 EACH MISC TD SCH (22:19)
[2017-12-04] MEDS: PANTOPRAZOLE SODIUM 40 MG TABLET PO SCH (06:26)
[2017-12-04] MEDS: TRAMADOL HCL 50 MG TABLET PO PRN ×2 (07:43→17:36)
[2017-12-04] MEDS: HYDROCHLOROTHIAZIDE 25 MG TABLET PO SCH (10:03)
[2017-12-04] MEDS: LORATADINE 10 MG TABLET PO SCH (10:03)
[2017-12-04] MEDS: NITROFURANTOIN MONO 100 MG CAPSULE PO SCH (10:04)
[2017-12-04] MEDS: POLYETHYLENE GLY 17 GM PACKET PO SCH (10:04)
[2017-12-04] MEDS: CALCITONIN SALMON INH SCH (10:07)
[2017-12-04] MEDS: PREMARIN 0.3 MG PO SCH (10:09)
[2017-12-04] MEDS: PROBIOTIC ACIDOPHILUS PO SCH ×2 (10:10→22:30)
--- NOTE | 2017-12-04 12:03 | Physical Therapy Tx Note ---
Physical Therapy Tx Note - Treatment Note Tolerated: Good Total Time Spent With Patient: 35 Physical Therapy Tx Note: Detail (Patient states stomach is feeling better today. Patient was supine in bed upon MOBILITY ARCHITECT MANAGER arrival. Patient transferred supine to sit independently. Patient doffed nightgown and donned shirt and pants independently. Patient transferred sit to and from stand independently. Patient ambulated 470 feet without assistive device SBA x1. Patient ascended and desceded 3 steps SBA x1. Patient performed the following exercises: marching x20, LAQ x20, standing heel raises x10, standing toe raises x5, standing hip abduction x10, standing hip extension x5, and standing hamstring curls x10. Patient tolerated treatment well. Patient displays some shortness of breath with ambulation. Patient was left seated in chair with call light within reach.) Physical Therapy Problem List: Detail (1. Difficulty with bed mobility. 2. Impaired activity tolerance. 3. Mild proximal LE weakness. 4. Musculoskeletal pain in back and lateral trunk.) Physical Therapy Goals: 1. Pt will be independent with bed mobility. 2. Pt will safely and independently perform all transfers, including toilet. 3. Pt will safely and independently ambulate over household distances/surfaces w/o assistive device. 4. Pt will exhibit 4+/5 strength in B hip flexion and extension for greater stability with gait. 5. Pt will tolerate 20 minutes of low intensity exercise without undue fatigue. Prognosis: Good Physical Therapy Plan: Patient will be seen 1-2 times daily M-F for bed mobility training, transfers, gait/balance training, strengthening and endurance training, to facilitate safe return to home environment.
--- NOTE | 2017-12-04 13:56 | Physical Therapy Tx Note ---
Physical Therapy Tx Note - Treatment Note Tolerated: Good Total Time Spent With Patient: 30 Physical Therapy Tx Note: Detail (Patient states no new complaints. Patient was supine in bed upon CHUCK SPLITTER arrival. Patient transferred supine to sit independently. Patient transferred sit to and from stand independently. Patient ambulated 364 feet without assistive device SBA x1. Patient performed the following exercises seated in chair x20 reps each: marching, LAQ with red theraband, hip abduction with red theraband, isometric hip adduction, glut squeezes, and hamstring curls with red theraband. Patient transferred sit to and from stand independently. Patient ambulated 7 feet without assistive device SBA x1. Patient transferred sit to supine independently. Patient tolerated treatment well. Patient reports some fatigue with glut squeezes and hamstring curls. Patient reports left ribs a little sore after treatment. Patient was left supine in bed with call light within reach.) Physical Therapy Problem List: Detail (1. Difficulty with bed mobility. 2. Impaired activity tolerance. 3. Mild proximal LE weakness. 4. Musculoskeletal pain in back and lateral trunk.) Physical Therapy Goals: 1. Pt will be independent with bed mobility. 2. Pt will safely and independently perform all transfers, including toilet. 3. Pt will safely and independently ambulate over household distances/surfaces w/o assistive device. 4. Pt will exhibit 4+/5 strength in B hip flexion and extension for greater stability with gait. 5. Pt will tolerate 20 minutes of low intensity exercise without undue fatigue. Prognosis: Good Physical Therapy Plan: Patient will be seen 1-2 times daily M-F for bed mobility training, transfers, gait/balance training, strengthening and endurance training, to facilitate safe return to home environment.
[2017-12-04] MEDS: LIDOCAINE 5% TOP SCH (14:19)
[2017-12-04] MEDS: OXYCODONE/APAP 7.5MG/325MG TABLET PO PRN ×2 (14:23→19:30)
[2017-12-04] MEDS ORDERED: BACLOFEN 10 MG TABLET PO PRN (18:00)
[2017-12-04] MEDS: CYCLOBENZAPRINE 10MG TABLET PO PRN (23:04)
[2017-12-04] MEDS: REMOVE PATCH 1 EACH MISC TD SCH (23:07)
[2017-12-05] MEDS: OXYCODONE/APAP 7.5MG/325MG TABLET PO PRN ×3 (00:16→22:10)
[2017-12-05] MEDS: PANTOPRAZOLE SODIUM 40 MG TABLET PO SCH (06:18)
[2017-12-05] MEDS: POLYETHYLENE GLY 17 GM PACKET PO SCH (09:59)
[2017-12-05] MEDS: HYDROCHLOROTHIAZIDE 25 MG TABLET PO SCH (09:59)
[2017-12-05] MEDS: LORATADINE 10 MG TABLET PO SCH (09:59)
[2017-12-05] MEDS: PREMARIN 0.3 MG PO SCH (10:01)
[2017-12-05] MEDS: CALCITONIN SALMON INH SCH (10:01)
[2017-12-05] MEDS: PROBIOTIC ACIDOPHILUS PO SCH ×2 (10:02→22:11)
[2017-12-05] MEDS: LIDOCAINE 5% TOP SCH (10:02)
--- NOTE | 2017-12-05 10:49 | Physical Therapy Tx Note ---
Physical Therapy Tx Note - Treatment Note Physical Therapy Tx Note: Detail (The patient was in bed when PT arrived. The patient complained of muscle spasms left rib region all night. The patient stopped twice during PT session with complaints of spasms. The patient splinted rib region with UE appropriately. The patient acheived supine to and from sit independently with appropriate technique. The patient completed LE strengthening exercises and was given written instructions. HEP is as follows: Hip adductor squeezes, gluteal sets, red T-band hip abduction, hip marching, LAQ and hamstring curls all x 10 reps. The patient's PT session was limited secondary to muscle spasms. The patient continues to progress well.) Physical Therapy Problem List: Detail (1. Difficulty with bed mobility. 2. Impaired activity tolerance. 3. Mild proximal LE weakness. 4. Musculoskeletal pain in back and lateral trunk.) Physical Therapy Goals: 1. Pt will be independent with bed mobility. 2. Pt will safely and independently perform all transfers, including toilet. 3. Pt will safely and independently ambulate over household distances/surfaces w/o assistive device. 4. Pt will exhibit 4+/5 strength in B hip flexion and extension for greater stability with gait. 5. Pt will tolerate 20 minutes of low intensity exercise without undue fatigue. Physical Therapy Plan: Patient will be seen 1-2 times daily M-F for bed mobility training, transfers, gait/balance training, strengthening and endurance training, to facilitate safe return to home environment.
--- NOTE | 2017-12-05 14:19 | Occupational Therapy Tx Note ---
Occupational Therapy Tx Note - Treatment Note Tolerated: Good Total Time Spent With Patient: 60 (ADL, gait) Occupational Therapy Treatment Note: Detail (S: Pt resting in bed, reports muscle spasms today. O: Supine to sit Indly with mod pain. Sit to stand Indly and amb to rehab kitchen (500 feet plus) Indly. Pt completed meal prep task (baking brownies) involving standing at counter, opening containers, mixing , pouring, putting baking dish in oven and all clean up. She did have rib pain when placing dish in oven and she reports her oven is higher therefore she doesn 't have to bend and she also has a family member help her if the dish is heavy. Reviewed modifications for kitchen as well as home mgmt tasks and pacing/ energy conservation. Pt verbalizes learning and is able to problem solve issues. Pt amb back to room Indly and got back to bed Indly. A: Pt is safe and Ind with light meal prep using modifications and energy conservation techniques. Ind with ambulating household distances.) Occupational Therapy Problem List: Detail (1. Decreased Left UE motion/ functional use. 2. Decreased Ind with modified techniques for ADLs. 3. Decreased Ind with IADL tasks. 4. Difficulty with sit to stand needed for ADLs.) Occupational Therapy Goals: 1. Pt will demonstrate left shoulder ROM to 120 degrees to allow Ind with all ADLs/IADLs. 2. Pt will be Ind with self cares utilizing modified techniques as needed. 3. Pt will be Ind with light meal prep activity. 4. Pt will be safe and Ind with sit to stand from various surfaces. Prognosis: Good Occupational Therapy Plan: OT 2-4 days per week to address self cares, functional mobility and IADLs.
--- NOTE | 2017-12-05 17:12 | Physician Progress Note ---
Subjective - Date Date of Progress Note: 12/05/17 - Admitting Diagnosis Diagnosis: Deconditioning related to left rib fx 5, 6,7 - Subjective Nursing Care Plan Problem List Activity Intolerance (Swing Bed) Start: 12/01/17 17: 00 Freq: Status: Active Protocol: Created 12/01/17 17:00 MMT (Rec: 12/01/17 17:00 MMT [id number]) Altered Thought Process (Fall Risk) Start: 12/01/17 22: 17 Freq: Status: Active Protocol: Created 12/01/17 22:17 ER (Rec: 12/01/17 22:17 [facility] [id number]) Impaired Mobility (Fall Risk) Start: 12/01/17 22: 17 Freq: Status: Active Protocol: Created 12/01/17 22:17 ER (Rec: 12/01/17 22:17 [facility] [id number]) Knowledge Deficit (Swing Bed) Start: 12/01/17 17: 00 Freq: Status: Active Protocol: Created 12/01/17 17:00 MMT (Rec: 12/01/17 17:00 MMT [id number]) Pain (Swing Bed) Start: 12/01/17 17: 00 Freq: Status: Active Protocol: Created 12/01/17 17:00 MMT (Rec: 12/01/17 17:00 MMT [id number]) Risk for Injury (Fall Risk) Start: 12/01/17 22: 17 Freq: Status: Active Protocol: Created 12/01/17 22:17 [facility] (Rec: 12/01/17 22:17 [facility] [id number]) General - Cognitive Patterns Speech: Soft Thought Process: Intact Thought Content: Normal - Communication Select best description of speech pattern: Clear Speech Ability to express ideas and wants: Understood Understanding verbal content: Understands - Mood and Behavior Patterns Appearance: Well Groomed Mood: Normal Attitude: Cooperative Motor Activity: Calm Affect: Appropriate Hallucinations: Denies - Physical Functioning Activity Level: Up with assist x1 Turning: Self ad mateusz ROM Ability: Moves all extremities Assistive Devices: None Ambulation Ability: Independent Bed Mobility: Needs Assist Transfer Ability: Independent Bathing Ability: Independent Personal Hygiene: Independent Dressing Ability: Independent Eating (Feeding) Ability: Independent Toileting Ability: Independent Administer Own Medication: Independent - Continence Bowel Pattern: Diarrhea Bladder Pattern: Normal Meds/Allergies - Allergies Allergies Allergy/AdvReac Type Severity Reaction Status Date / Time acetaminophen [From Vicodin] Allergy ANAPHYLAXIS Verified 11/27/17 12:06 adhesive Allergy RASH Verified 11/27/17 12:06 hydrocodone bitartrate Allergy ANAPHYLAXIS Verified 11/27/17 12:06 [From Vicodin] indomethacin [From Indocin] Allergy ANAPHYLAXIS Verified 11/27/17 12:06 indomethacin sodium Allergy ANAPHYLAXIS Verified 11/27/17 12:06 [From Indocin] - Active Medications Current Medications Baclofen (Lioresal) 5 mg PO BID PRN PRN Reason: MUSCLE SPASMS Last Admin: 12/04/17 18:08 Dose: 5 mg Cyclobenzaprine HCl (Flexeril) 5 mg PO TID PRN PRN Reason: MUSCLE SPASMS Last Admin: 12/04/17 23:04 Dose: 5 mg Hydrochlorothiazide (Hctz 25mg) 25 mg PO DAILY [facility] Last Admin: 12/05/17 09:59 Dose: 25 mg Hydrocortisone (Hydrocortisone) 1 gm TOP Q6H PRN PRN Reason: ITCHING Loratadine (Claritin) 10 mg PO DAILY [facility] Last Admin: 12/05/17 09:59 Dose: 10 mg Miscellaneous (Remove Patch) 1 each TD QHS [facility] Last Admin: 12/04/17 23:07 Dose: 1 each Ondansetron HCl (Zofran Odt) 4 mg SL Q8H PRN PRN Reason: NAUSEA Oxycodone/Acetaminophen (Percocet 7.5-325 Mg Tablet) 1 each PO Q4H PRN PRN Reason: PAIN - MOD TO SEVERE (5-10) Stop: 12/08/17 13:10 Last Admin: 12/05/17 15:22 Dose: 1 each [facility]op[facility] Last Admin: 12/05/17 06:18 Dose: 40 mg Patient Own Med: Premarin (Conjugated Estrogens) 0.3 Mg 1 each PO DAILY [facility] Last Admin: 12/05/17 10:01 Dose: 1 each Patient Own Med: Calcitonin [place] Nasal [place] 1 each INH DAILY [facility] Last Admin: 12/05/17 10:01 Dose: 1 each Patient Own Med: Probiotic Acidophilus 2 each PO DAILY [facility] Last Admin: 12/05/17 10:02 Dose: 2 each Patient Own Med: Probiotic Acidophilus 1 each PO QHS [facility] Last Admin: 12/04/17 22:30 Dose: 1 each Patient Own Med: (Lidocaine 5% Patch) 1 each TOP DAILY [facility] Last Admin: 12/05/17 10:02 Dose: 1 each Polyethylene Glycol (Miralax) 17 gm PO DAILY [facility] Last Admin: 12/05/17 09:59 Dose: Not Given Tramadol HCl (Ultram) 50 mg PO QID PRN PRN Reason: PAIN - MILD (1-4) Last Admin: 12/04/17 17:36 Dose: 50 mg Objective - Vital Signs Vital Signs: Vital Signs - Last 24 Hrs Temp Pulse Resp BP Pulse Ox 12/05/17 08:00 98.1 F 68 16 135/67 99 12/04/17 20:00 97.7 F 65 18 142/71 98 - General General Appearance: Alert, Oriented x3, Cooperative Limitations: No limitations - Head Head exam: Atraumatic, Normocephalic - Eye Eye exam: Normal appearance, PERRL - ENT ENT exam: Normal exam - Neck Neck exam: Full ROM - Respiratory Respiratory exam: Normal lung sounds bilaterally, Chest wall tenderness (left sided rib pain) - Cardiovascular Cardiovascular Exam: Regular rate, Normal rhythm Peripheral Pulses: 3+: Dorsalis Pedis (R), Dorsalis Pedis (L) - GI/Abdominal GI/Abdominal exam: Soft, Normal bowel sounds. negative: Tenderness - Extremities Extremities exam: Normal inspection. negative: Pedal edema - Back Back exam: Reports: Normal inspection - Psychiatric Psychiatric exam: Normal affect, Normal mood - Skin Skin exam: Dry, Warm Discharge Potential - Discharge Needs Community Services Used Prior to Admission: None, Transportation Patient Discharge Plan Description: Return Home Community Services Needed at Discharge: Physical Therapy Plan - Swing Bed Certification Initial Certification Due: 12/01/17 14 Day Re-Cert Due: 12/15/17 44 Day Re-Cert Due: 01/14/18 74 Day Re-Cert Due: 02/13/18
[2017-12-05] MEDS: CYCLOBENZAPRINE 10MG TABLET PO PRN (22:09)
[2017-12-05] MEDS: REMOVE PATCH 1 EACH MISC TD SCH (22:11)
[2017-12-06] MEDS: CYCLOBENZAPRINE 10MG TABLET PO PRN ×2 (02:54→21:50)
[2017-12-06] MEDS: OXYCODONE/APAP 7.5MG/325MG TABLET PO PRN ×4 (02:54→21:51)
[2017-12-06] MEDS: PANTOPRAZOLE SODIUM 40 MG TABLET PO SCH (06:51)
[2017-12-06] MEDS: HYDROCHLOROTHIAZIDE 25 MG TABLET PO SCH (09:20)
[2017-12-06] MEDS: CALCITONIN SALMON INH SCH (09:20)
[2017-12-06] MEDS: POLYETHYLENE GLY 17 GM PACKET PO SCH (09:20)
[2017-12-06] MEDS: PREMARIN 0.3 MG PO SCH (09:20)
[2017-12-06] MEDS: LORATADINE 10 MG TABLET PO SCH (09:20)
[2017-12-06] MEDS: LIDOCAINE 5% TOP SCH (09:20)
[2017-12-06] MEDS: PROBIOTIC ACIDOPHILUS PO SCH ×2 (09:21→21:52)
[2017-12-06] MEDS: REMOVE PATCH 1 EACH MISC TD SCH (21:52)
[2017-12-07] MEDS: OXYCODONE/APAP 7.5MG/325MG TABLET PO PRN ×3 (06:52→21:11)
[2017-12-07] MEDS: PANTOPRAZOLE SODIUM 40 MG TABLET PO SCH (06:52)
[2017-12-07] MEDS: POLYETHYLENE GLY 17 GM PACKET PO SCH (09:16)
[2017-12-07] MEDS: LORATADINE 10 MG TABLET PO SCH (09:20)
[2017-12-07] MEDS: LIDOCAINE 5% TOP SCH (09:20)
[2017-12-07] MEDS: HYDROCHLOROTHIAZIDE 25 MG TABLET PO SCH (09:20)
[2017-12-07] MEDS: CALCITONIN SALMON INH SCH (09:20)
[2017-12-07] MEDS: PREMARIN 0.3 MG PO SCH (09:21)
[2017-12-07] MEDS: PROBIOTIC ACIDOPHILUS PO SCH ×2 (09:21→21:07)
[2017-12-07] MEDS: TRAMADOL HCL 50 MG TABLET PO PRN ×2 (09:22→18:17)
[2017-12-07] MEDS: REMOVE PATCH 1 EACH MISC TD SCH (21:07)
[2017-12-07] MEDS: CYCLOBENZAPRINE 10MG TABLET PO PRN (21:11)
[2017-12-08] MEDS: PANTOPRAZOLE SODIUM 40 MG TABLET PO SCH (06:21)
--- NOTE | 2017-12-08 09:41 | Physical Therapy Tx Note ---
Physical Therapy Tx Note - Treatment Note Tolerated: Good Total Time Spent With Patient: 30 Physical Therapy Tx Note: Detail (The patient reported she had a good weekend. The patient reported that her dog came for a visit and she was able to walk him outside briefly. The patient had minimal complaints of L sided rib pain this am. The patient was anxious concerning obtaining of equipment prior to discharge tomorrow. The patient was independent with supine to and from sit transfer and sit to stand surface with continued gaurded movement due to rib pain. The patient ambulated without device independently a distance of 150 feet x 1. The patient ambulated independently using reciprocal gait pattern on 3 steps and a flight of 7 steps with use of one railing with moderate/minimal complaints of L sided rib region pain. The patient's HEP was reviewed including shoulder exercises: shoulder flexion and abduction, bicep curls and LE exercises. The patient was instructed in abdominal isometrics with marching in a seated position to improve core strength. The patient is independent with a HEP. The patient's LE strength was retested and is as follows: 4+ /5 in all hip musculature except for flexors 4/4 ( all muscles were tested in a seated position). The patient's knee and ankle musculature was 5/5. Will see patient this pm for information on equipment and any other needs/questions. The patient has met all PT goals and is to receive Home PT for assessment of safety in home. ) Physical Therapy Problem List: Detail (1. Difficulty with bed mobility. 2. Impaired activity tolerance. 3. Mild proximal LE weakness. 4. Musculoskeletal pain in back and lateral trunk.) Physical Therapy Goals: 1. Pt will be independent with bed mobility. 2. Pt will safely and independently perform all transfers, including toilet. 3. Pt will safely and independently ambulate over household distances/surfaces w/o assistive device. 4. Pt will exhibit 4+/5 strength in B hip flexion and extension for greater stability with gait. 5. Pt will tolerate 20 minutes of low intensity exercise without undue fatigue. Physical Therapy Plan: Patient will be seen 1-2 times daily M-F for bed mobility training, transfers, gait/balance training, strengthening and endurance training, to facilitate safe return to home environment.
[2017-12-08] MEDS: POLYETHYLENE GLY 17 GM PACKET PO SCH (10:32)
[2017-12-08] MEDS: OXYCODONE/APAP 7.5MG/325MG TABLET PO PRN (10:35)
[2017-12-08] MEDS: HYDROCHLOROTHIAZIDE 25 MG TABLET PO SCH (10:36)
[2017-12-08] MEDS: LORATADINE 10 MG TABLET PO SCH (10:36)
[2017-12-08] MEDS: CALCITONIN SALMON INH SCH (10:37)
[2017-12-08] MEDS: LIDOCAINE 5% TOP SCH (10:40)
[2017-12-08] MEDS: PREMARIN 0.3 MG PO SCH (10:40)
[2017-12-08] MEDS: PROBIOTIC ACIDOPHILUS PO SCH ×2 (11:11→22:02)
--- NOTE | 2017-12-08 14:36 | Physical Therapy Tx Note ---
Physical Therapy Tx Note - Treatment Note Physical Therapy Tx Note: Detail (Checked on patient this pm to provide information on equipment. The patient reported the residential case manager found her a hospital bed and commode. The patient had no other concerns or questions. The patient has met all inpatient goals and is discharged from inpatient PT. The patient is to receive Home PT services for evaluation of home environment.) Physical Therapy Problem List: Detail (1. Difficulty with bed mobility. 2. Impaired activity tolerance. 3. Mild proximal LE weakness. 4. Musculoskeletal pain in back and lateral trunk.) Physical Therapy Goals: 1. Pt will be independent with bed mobility. 2. Pt will safely and independently perform all transfers, including toilet. 3. Pt will safely and independently ambulate over household distances/surfaces w/o assistive device. 4. Pt will exhibit 4+/5 strength in B hip flexion and extension for greater stability with gait. 5. Pt will tolerate 20 minutes of low intensity exercise without undue fatigue. Physical Therapy Plan: The patient has met all inpatient goals and is discharged from inpatient PT. Refer to discharge note for objective information.
[2017-12-08] MEDS: TRAMADOL HCL 50 MG TABLET PO PRN ×2 (17:01→20:46)
[2017-12-08] MEDS: CYCLOBENZAPRINE 10MG TABLET PO PRN (22:01)
[2017-12-08] MEDS: REMOVE PATCH 1 EACH MISC TD SCH (22:02)
[2017-12-09] MEDS: PANTOPRAZOLE SODIUM 40 MG TABLET PO SCH (06:19)
[2017-12-09] MEDS: OXYCODONE/APAP 7.5MG/325MG TABLET PO PRN (08:20)
[2017-12-09] MEDS: HYDROCHLOROTHIAZIDE 25 MG TABLET PO SCH (09:17)
[2017-12-09] MEDS: POLYETHYLENE GLY 17 GM PACKET PO SCH (09:17)
[2017-12-09] MEDS: LORATADINE 10 MG TABLET PO SCH (09:17)
[2017-12-09] MEDS: CALCITONIN SALMON INH SCH (09:17)
[2017-12-09] MEDS: PREMARIN 0.3 MG PO SCH (09:18)
[2017-12-09] MEDS: PROBIOTIC ACIDOPHILUS PO SCH (09:18)
[2017-12-09] MEDS: LIDOCAINE 5% TOP SCH (09:18)
--- NOTE | 2017-12-09 10:12 | Discharge Summary ---
Providers Discharge Summary Date: 12/09/17 Date of admission: 12/01/17 12:39 Attending physician: YANET COLÓN Primary care physician: OSWALDO BERTRAND D.O. Physical Exam - Vital Signs Vital Signs: Vital Signs - Last 24 Hrs Temp Pulse Resp BP Pulse Ox 12/09/17 08:00 98.2 F 95 H 18 114/67 92 L 12/08/17 20:00 82 18 122/78 95 - General General Appearance: Alert, Oriented x3, Cooperative Limitations: No limitations - Head Head exam: Atraumatic, Normocephalic - Eye Eye exam: Normal appearance, PERRL - ENT ENT exam: Normal exam - Neck Neck exam: Full ROM - Respiratory Respiratory exam: Normal lung sounds bilaterally - Cardiovascular Cardiovascular Exam: Regular rate, Normal rhythm Peripheral Pulses: 3+: Dorsalis Pedis (R), Dorsalis Pedis (L) - GI/Abdominal GI/Abdominal exam: Tenderness - Extremities Extremities exam: Normal inspection. negative: Pedal edema - Psychiatric Psychiatric exam: Normal affect, Normal mood - Skin Skin exam: Dry, Warm Hospitalization - Hospitalization Admission Diagnosis: Deconditioning related to left rib fx 5, 6,7 - Problem List/Discharge Diagnosis (1) Physical deconditioning Current Visit: Yes Status: Acute Base Code: R53.81 - OTHER MALAISE Comment : 12/09/2017 - Home PT/OT scheduled - Hospital bed ordered for home - Continue Percocet q. 8 hours as needed and Flexeril for pain control (2) DVT prophylaxis Current Visit: No Status: Acute Base Code: [id number] - Comment: 12/09/2017 - No need to continue Lovenox d/t increase mobility (3) Full code status Current Visit: No Status: Acute Base Code: Z78.9 - OTHER SPECIFIED HEALTH STATUS Comment: 12/09/17 - Full code during admission - Hospitalization Course Disposition: Home Health Service Hospital Course: Cece Galan is a 77 y/o female brought to ED by EMS on 11/28/17 s/p fall from a 2 step foot stool while hanging a basket. Denies hitting head or LOC. Lives independently and manage own ADL. Denies any previous change in activity but does report she had acute vomiting, nausea and diarrhea about a week ago that has now resolved. PMX includes fibromyalgia, lupus, leukemia. While in ED abd/pelvis CT showed nod displaced left rib fractures, L1 compression fracture. Chest CT left non displaced 5th, 6th, 7th rib fractures, incidental findings pulmonary nodules no larger than 4mm- recommend follow up chest CT in 12 months, nodule left lobe of thyroid gland, follow up ultrasound on non-emergent bases. WBC 20- acute trauma vs. underlying acute infection. Admitted to floor for pain control, work up/rule out acute infection. During her inpatient hospitalization she remained painful and required assist with toileting and getting out of bed due to pain and difficulty twisting torso. She had an elevated WBC in ED and found to have a UTI, prelim urine culture positive for e-coli and currently completing a 5 day course of Macrobid 100mg. Has been able to increase activity slowly but not yet independent with ADL and toileting and getting out of bed. She also has a water bed at home that may prove to be difficulty for her to get in and out of at this time. Has done well on Percocet for pain, still requires assist with bathing and getting out of bed due to pain and difficulty with twisting of torso. Has tolerated Macrobid for UTI. Has moved bowels since starting Miralax 12/09/2017 Pt A&Ox4, resting comfortably in bed. Has been participating in PT/OT will in swing bed. Mobility has improved. Pain controlled with Percocet q. 8 hours and Flexeril at night. To be discharged home today with home PT/OT established. Will continue Flexeril and Percocet at home. F/u appointment with PCP has been scheduled. Condition at Discharge: (2) Stable VTE Discharge VTE Reason For No Overlap Therapy: Not Indicated Discharge Medications - Discharge Medications Prescriptions: Cyclobenzaprine HCl [Flexeril] 5 mg PO QHS PRN 15 Days #15 tablet PRN Reason: Muscle Spasms Oxycodone HCl/Acetaminophen [Percocet 7.5mg/325mg] 1 each PO Q8H PRN #45 tab PRN Reason: Pain - Mod To Severe (5-10) Home Medications: Ambulatory Orders Calcitonin,Merrick,Synthetic [Calcitonin-Merrick] 1 inh INH DAILY 10/17/13 [Last Taken 05/17/16] Loratadine [Claritin] 10 mg PO DAILY 10/17/13 [Last Taken 05/17/16] Tramadol HCl 50 mg PO QID PRN 10/17/13 [Last Taken 05/17/16] Estrogens, Conjugated [Premarin] 0.3 mg PO DAILY 05/17/16 [Last Taken 05/17/16] Hydrochlorothiazide [Hctz] 25 mg PO DAILY 05/17/16 [Last Taken 05/17/16] Omeprazole [Prilosec] 20 mg PO DAILYAC 05/17/16 [Last Taken 05/17/16] Lidocaine 1 each TOP DAILY 12/01/17 [Last Taken Unknown] Cyclobenzaprine HCl [Flexeril] 5 mg PO QHS PRN 15 Days #15 tablet 12/09/17 [ Last Taken Unknown] Oxycodone HCl/Acetaminophen [Percocet 7.5mg/325mg] 1 each PO Q8H PRN #45 tab [Last Taken Unknown] Discharge Plan - Discharge Instructions Activity at Discharge: As Per Physical Therapy Diet at Discharge: Regular Diet Additional Instructions: Follow Up with Primary Care Provider on 12/24/17 Take Flexeril at bedtime Take Percocet q. 8 hours as needed May use Acetaminophen (Tylenol) 650mg in place of Percocet, do not take more than 3,000mg of Acetaminophen in a 24 hour period. Quality Measures - Quality Measures Quality Measures: Advance Directives, Documentation of Current Medications in Medical Record, Elder Maltreatment Screen and Follow-Up Plan, Screening for High Blood Pressure and F/U Documented - Current Medications Quality Measure: Measure #130: Documentation of Current Medications Documentation of Current Medications: <Current Medications Documented/Reviewed> [G1205] - Blood Pressure Screening Quality Measure: Screening for High Blood Pressure and Follow-Up Documented Does Patient Have Any of the Following: Active Dx of HTN Blood Pressure Classification: Normal BP Reading Systolic Measurement: 119 Diastolic Measurement: 55 Screening for High Blood Pressure: Patient Exclusion, Hx of HTN [G9744] - Advance Directives Quality Measure: Measure #47: Care Plan Advance Directives Established: Yes Advance Directives Information Provided To Patient: No Advance Directives on File: Yes Living Will: Yes Power of Poultry And Fish Butcher: Yes Power of Poultry And Fish Butcher Name: Melissa Greenfield Advance Care Planning: <Care Plan/Decision Maker Documented; Discussed & Documented> [1123F] - Elder Abuse Suspicion Index Screening: Elder Abuse Suspicion Index Screening Rely on people for bathing, dressing, shopping, banking, etc: No Prevented from getting food, clothes, medication, etc: No Made to feel shamed or threatened by someone: No Forced to sign papers or use money against will: No Feel afraid, touched in ways not wanted or hurt physically: No Poor eye contact, withdrawn, malnourished, cuts or bruises: No Screening Result: Negative result EASI Reference Information: Loren HUYNH, Fidel C, Dale Cancino, Juan Jackson.Development and validation of a tool to assist physicians identification of elder abuse: The Elder Abuse Suspicion Index (EASI ). Journal of Elder Abuse and Neglect, 2008; 20 (3): 276-300. - Elder Maltreatment Screen Quality Measures: Elder Maltreatment Screen and Follow-Up Plan Elder Maltreatment Screen: <Negative, No Follow-Up Plan Required> [G8734]
--- NOTE | 2017-12-09 10:53 | Rehab Discharge Summary ---
Patient Information - Patient Information Diagnosis: rib fractures 5,6,7 due to fall Ordered Treatment: PT Evaluate and Treat Surgery: No History: Detail (Pt sustained injuries from a fall while trying to hang a basket. States she lost her balance when she stepped to the second step of a two-step footstool. Denies that she was dizzy or faint.) Past Medical/Surgical Hx: PAST MEDICAL/SURGICAL HISTORY Past Surgical History Hysterectomy Appendectomy Cholecystectomy Left shoulder reconstruction T &A Breast Reduction PMH - Respiratory Hx Respiratory Disorders No PMH - Cardiovascular Hx Cardiovascular Disorders No PMH - Neuro Hx Neurological Disorders No Hx Seizures No PMH - GI Hx Gastrointestinal Disorders Yes Hx Gastroesophageal Reflux Yes Comment: diarrhea and nausea PMH - Hx Genitourinary Disorders Yes Hx Kidney Stones Yes Hx Urinary Tract Infection Yes PMH - Endocrine Hx Endocrine Disorders No Hx Diabetes No Hx Thyroid Disease No PMH - Musculoskeletal Hx Musculoskeletal Disorders Yes Hx Arthritis Yes Hx Back Injury Yes Hx Fibromyalgia Yes Hx Gout No Hx Musculoskeletal Disease No Hx Osteoporosis Yes Comment: lupus PMH - Psych Hx Psychiatric Problems No PMH - Hematology/Oncology Hx Hematology/Oncology Yes Disorders Hx Anemia No Hx Blood Disorders Yes: CLL Hx Bruising Yes Hx Cancer Yes: CLL Hx Chemotherapy No Hx Radiation Therapy No Hx Clotting Problems No Hx Sickle Cell Disease No Hx Unexplained Bleeding No Hx Blood Transfusion Reaction No Comment: Lupus Premorbid Status: Detail (Pt lives with daughter, son-in-law and son in a 2 story house with 3 steps and 1 handrailing at the entrance. Her bedroom is on the first floor. The bathroom she generally uses has a jacuzzi tub and a "low boy" toilet. She reports having a small walk in shower on the second floor. She was Ind with all self cares and was primarily responsible for all meal prep , laundry and home mgmt for the household. She ambulated without an assistive device. She was using an ankle-foot immobilizer intermittently on the left foot to manage chronic tendonitis, but she was not wearing it when she fell.) Social History: Detail Precautions: [place], Fall Subjective Information - Subjective Information Per Patient (The patient had less complaints of L sided rib pain then initially. ) Objective Data - Mental Status Patient Orientation: Oriented x3 - Visual Perception Appears within normal limits for therapeutic activities - ROM Within normal limits - Strength/Tone Not within normal limits (LE strength was in hip musculature 4+ to 5/5 except for hip flexors 4/5, all other LE musculature was 5/5. Initial strength was 4+/ 5 with hip flexors and extensors 4/5.) - Bed Mobility Independent (The patient was independent with supine to and from sit with head of the bed partially elevated and side rail in mid position. The patient is to have a hospital bed at home. The patient was independent with scooting up in bed.) - Transfers Independent (The patient independent with sit to and from stand and toilet transfer with guarded movements at times.) - Balance Balance Sitting: Good Balance Standing: Good - Sensation Intact - Gait Detail (The patient was independent with ambulation without device community distances- distances of 500 feet plus. The patient was independent with ambulation on stairs a flight of 3 and 7 with use of one railing. The patient experienced less L sided rib pain then initially with stair climbing.) Therapy Assessment - Therapy Assessment Detail (The patient was independent with all mobility and exhibited increased LE strength. The patient is to receive Home PT for assessment of the patient's safety in home environment.) Patient Education - Patient Education Teaching Topic: Exercise/Activity (The patient was independent with HEP including LE strengthening exercises and UE AROM exercises.) Response: Return Demonstration Teaching Method: Demonstration, Handout Teaching Recipient: Patient Barriers To Learning: None Problem List - Problem List Physical Therapy Problem List: Detail (1. Difficulty with bed mobility. 2. Impaired activity tolerance. 3. Mild proximal LE weakness. 4. Musculoskeletal pain in back and lateral trunk.) Occupational Therapy Problem List: Detail (1. Decreased Left UE motion/ functional use. 2. Decreased Ind with modified techniques for ADLs. 3. Decreased Ind with IADL tasks. 4. Difficulty with sit to stand needed for ADLs.) Goals - Goals Physical Therapy Goals: 1. Pt will be independent with bed mobility.( Goal Met) . 2. Pt will safely and independently perform all transfers, including toilet.( Goal Met). 3. Pt will safely and independently ambulate over household distances/surfaces w/o assistive device. (Goal met). 4. Pt will exhibit 4+/5 strength in B hip flexion and extension for greater stability with gait.( Partially met-hip flexor weakness 4/5.). 5. Pt will tolerate 20 minutes of low intensity exercise without undue fatigue. Occupational Therapy Goals: 1. Pt will demonstrate left shoulder ROM to 120 degrees to allow Ind with all ADLs/IADLs. 2. Pt will be Ind with self cares utilizing modified techniques as needed. 3. Pt will be Ind with light meal prep activity. 4. Pt will be safe and Ind with sit to stand from various surfaces. Plan - Plan Physical Therapy Plan: The patient has met all inpatient goals and is discharging from [facility] today. The patient is to recieve Home PT for assessment of the patient's safety in home environment. Occupational Therapy Plan: OT 2-4 days per week to address self cares, functional mobility and IADLs.
--- NOTE | 2017-12-09 10:58 | Rehab Discharge Summary ---
Patient Information - Patient Information Diagnosis: rib fractures 5,6,7 due to fall Ordered Treatment: OT Evaluate and Treat Surgery: No History: Detail (Pt sustained injuries from a fall while trying to hang a basket. States she lost her balance when she stepped to the second step of a two-step footstool. Denies that she was dizzy or faint.) Past Medical/Surgical Hx: PAST MEDICAL/SURGICAL HISTORY Past Surgical History Hysterectomy Appendectomy Cholecystectomy Left shoulder reconstruction T &A Breast Reduction PMH - Respiratory Hx Respiratory Disorders No PMH - Cardiovascular Hx Cardiovascular Disorders No PMH - Neuro Hx Neurological Disorders No Hx Seizures No PMH - GI Hx Gastrointestinal Disorders Yes Hx Gastroesophageal Reflux Yes Comment: diarrhea and nausea PMH - Hx Genitourinary Disorders Yes Hx Kidney Stones Yes Hx Urinary Tract Infection Yes PMH - Endocrine Hx Endocrine Disorders No Hx Diabetes No Hx Thyroid Disease No PMH - Musculoskeletal Hx Musculoskeletal Disorders Yes Hx Arthritis Yes Hx Back Injury Yes Hx Fibromyalgia Yes Hx Gout No Hx Musculoskeletal Disease No Hx Osteoporosis Yes Comment: lupus PMH - Psych Hx Psychiatric Problems No PMH - Hematology/Oncology Hx Hematology/Oncology Yes Disorders Hx Anemia No Hx Blood Disorders Yes: CLL Hx Bruising Yes Hx Cancer Yes: CLL Hx Chemotherapy No Hx Radiation Therapy No Hx Clotting Problems No Hx Sickle Cell Disease No Hx Unexplained Bleeding No Hx Blood Transfusion Reaction No Comment: Lupus Premorbid Status: Detail (Pt lives with daughter, son-in-law and son in a 2 story house with 3 steps and 1 handrailing at the entrance. Her bedroom is on the first floor. The bathroom she generally uses has a jacuzzi tub and a "low boy" toilet. She reports having a small walk in shower on the second floor. She was Ind with all self cares and was primarily responsible for all meal prep , laundry and home mgmt for the household. She ambulated without an assistive device. She was using an ankle-foot immobilizer intermittently on the left foot to manage chronic tendonitis, but she was not wearing it when she fell.) Precautions: [place], Fall Subjective Information - Subjective Information Per Patient Objective Data - Pain Pain Present: Yes (Rib pain with movement) - Mental Status Patient Orientation: Oriented x3 - Visual Perception Appears within normal limits for therapeutic activities - ROM Not within normal limits (Right UE AROM WNL, left shoulder AROM limited to 120 degrees due to previous surgery) - Strength/Tone Within normal limits (Right UE and left elbow and forestry support specialist strength 4+/5, left shoulder strength 4-/5 with pain during left shoulder resistance in rib area.) - Coordination Appears within normal limits for therapeutic activities - Bed Mobility Independent (Ind with supine to sit and sit to supine.) - Transfers Independent (Ind with sit to stand from a variety of surfaces with rib pain during transition from sit to stand.) - Balance Balance Sitting: Good Balance Standing: Good - Sensation Intact - Gait Detail (Pt ambulating household distances without an assistive device.) - ADL's/IADL's Detail (Pt is Ind with showering in standing, total body dressing, grooming/ hygiene and meal prep activity in OT kitchen.) Therapy Assessment - Therapy Assessment Detail (Pt is safe and Ind with all self cares and meal prep using modified techniques as needed.) Problem List - Problem List Physical Therapy Problem List: Detail (1. Difficulty with bed mobility. 2. Impaired activity tolerance. 3. Mild proximal LE weakness. 4. Musculoskeletal pain in back and lateral trunk.) Occupational Therapy Problem List: Detail (1. Decreased Left UE motion/ functional use. 2. Decreased Ind with modified techniques for ADLs. 3. Decreased Ind with IADL tasks. 4. Difficulty with sit to stand needed for ADLs.) Goals - Goals Physical Therapy Goals: 1. Pt will be independent with bed mobility. 2. Pt will safely and independently perform all transfers, including toilet. 3. Pt will safely and independently ambulate over household distances/surfaces w/o assistive device. 4. Pt will exhibit 4+/5 strength in B hip flexion and extension for greater stability with gait. 5. Pt will tolerate 20 minutes of low intensity exercise without undue fatigue. Occupational Therapy Goals: Goals Met: 1. Pt will demonstrate left shoulder ROM to 120 degrees to allow Ind with all ADLs/IADLs. 2. Pt will be Ind with self cares utilizing modified techniques as needed. 3. Pt will be Ind with light meal prep activity. 4. Pt will be safe and Ind with sit to stand from various surfaces. Prognosis - Prognosis Good Plan - Plan Physical Therapy Plan: The patient has met all inpatient goals and is discharged from inpatient PT. Refer to discharge note for objective information. Occupational Therapy Plan: Pt has met all OT goals and is discharging home today.
== END 2017-12-09 17:40 | disposition home health service (06) | DRG 948 ==
LOC: MEDSURG 12:39
PROVIDERS: ADMIT Internal Medicine; ATTEND Internal Medicine
DX: R53.81 Other malaise (principal); S22.42XA Multiple fractures of ribs, left side, initial encounter for closed fracture; N39.0 Urinary tract infection, site not specified; M19.90 Unspecified osteoarthritis, unspecified site; M32.9 Systemic lupus erythematosus, unspecified; Z85.6 Personal history of leukemia; M79.7 Fibromyalgia; Z87.442 Personal history of urinary calculi
CPT/HCPCS: 97110; 97116; 97530; 97535; 99306; 99309; 99316

== ENCOUNTER 2019-04-21 13:38 | Inpatient (IN) | payer MEDICARE, BC ==
[2019-04-22] MEDS ORDERED: DIPHENOXYLATE HCL/ATROP 2.5/0.025MG TABLET PO PRN (14:06)
[2019-04-22] MEDS ORDERED: PROCHLORPERAZINE MALEATE 10 MG TABLET PO PRN (14:11)
--- NOTE | 2019-04-22 14:36 | History & Physical ---
History of Present Illness - Date of Service Date of Service for History & Physical: 04/22/19 - History of Present Illness Admitting Diagnosis: Deconditioning. C-Diff History of Present Illness: 78 year old female admitted to swing bed program after inpatient admission 04/11/19-04/22/19 at [facility] for c-diff. She has past medical history of CLL, anal carcinoma, thyroid cancer, SLE, brain aneurysms, and HTN. She had been having diarrhea several months prior to arrival to [facility] with history of multiple episodes of diverticulitis. Patient had chemo and radiation to anal area about a week prior to admission to [facility] (for anal cancer only, not CLL) which she noticed had worsened the diarrhea with associated decreased PO intake and generalized weakness. She repots that was her last round of treatment. She had a brief ICU stay for hypotension and tachycardia which was not improved with IV hydration of 4L while in the ED which required pressor support. She was first on Cefepime and Vancomycin to treat an uncomplicated sigmoid diverticulitis f ound on CT abd/pelvis and subsequently changed to PO Vanco after stools were found to be positive for c-diff. No active metastatic disease noted on CT abd/pevis. She was able to be weaned off pressors on day 7 of admission and was transferred to general medical floor. She had a rectal tube placed while at [facility] for stool management and radiation related avitia to buttocks. She has completed a full 10-day course of oral Vanco and began having more firm stools beginning 04/20 and had recal tube removed. Vitals and labs stable at time of discharge from [facility] and has been tolerating PO intake without difficulty. Oncology consulted and recommend GCSF for neutropenia. Of note, she is awaiting treatment plan for thyroid cancer as she states her oncologist wanted to be sure she was out of the hospital and stable prior to discussing the treatment plan. PCP: Debi Aleman DNP Oncology: Dr Weston Levine Past Medical History - SOCIAL HISTORY Smoking Status: Never smoker - RESPIRATORY Hx Respiratory Disorders: No - CARDIOVASCULAR Hx Cardio Disorders: Yes Comment:: hyperlipidemia - NEURO Hx Neuro Disorders: No - GI Hx GI Disorders: Yes Hx Reflux: Yes Comment:: diarrhea and nausea - Hx Genitourinary Disorders: Yes Hx Kidney Stones: Yes Hx UTI: Yes - ENDOCRINE Hx Thyroid Disease: Yes - MUSCULOSKELETAL Hx Musculoskeletal Disorders: Yes Hx Arthritis: Yes Hx Back Injury: Yes Hx Fibromyalgia: Yes Hx Gout: No Hx Musculoskeletal Disease: No Hx Osteoporosis: Yes Comment:: lupus - PSYCH Hx Psych Problems: No - HEMATOLOGY/ONCOLOGY Hx Hematology/Oncology Disorders: Yes Hx Anemia: No Hx Blood Disorders: Yes (CLL) Hx Bruising: Yes Hx Cancer: Yes (CLL, breast, thyroid, neoplasm of brain) Hx Chemotherapy: No Hx Radiation Therapy: No Hx Clotting Problems: No Hx Sickle Cell Disease: No Hx Unexplained Bleeding: No Hx Blood Transfusions: Yes (with labor and delivery of child) Hx Blood Transfusion Reaction: No Comment:: Lupus Family Medical History Hx Alcohol Use: Father Hx Cancer: Father, Mother, Brother/Sister, Grandparents Hx Dementia: Mother *Dementia Comment: alzheimers Hx HTN: Mother Hx Seizures: Mother Hx Stroke: Mother H&P Meds/Allergies - Allergies Allergies: Allergies Allergy/AdvReac Type Severity Reaction Status Date / Time acetaminophen [From Vicodin] Allergy ANAPHYLAXIS Verified 11/27/17 12:06 adhesive Allergy RASH Verified 11/27/17 12:06 hydrocodone bitartrate Allergy ANAPHYLAXIS Verified 11/27/17 12:06 [From Vicodin] indomethacin [From Indocin] Allergy ANAPHYLAXIS Verified 11/27/17 12:06 indomethacin sodium Allergy ANAPHYLAXIS Verified 11/27/17 12:06 [From Indocin] - Home Medications Previous Rx's Medication Instructions Recorded Cyclobenzaprine HCl [Flexeril] 5 mg PO QHS PRN 15 Days #15 tablet 12/09/17 Oxycodone HCl/Acetaminophen 1 each PO Q8H PRN #45 tab 12/09/17 [Percocet 7.5mg/325mg] Oxycodone HCl/Acetaminophen 1 each PO Q8H PRN #45 tab 12/09/17 [Percocet 7.5mg/325mg] - Active Medications Active Medications: Current Medications Calcium/Vitamin D (Calcium 500+D Tablet) 1 tab PO DAILY [facility] Cyanocobalamin (Vitamin B-12) 100 mcg PO DAILY [facility] Diphenhydramine HCl (Benadryl Capsule) 50 mg PO Q6H PRN PRN Reason: NAUSEA Diphenoxylate HCl/Atropine (Lomotil) 1 udtab PO QID PRN PRN Reason: DIARRHEA Hydrochlorothiazide (Hctz 25mg) 25 mg PO DAILY [facility] Lidocaine (Lidoderm) 1 each TOP Q24H [facility] Loratadine (Claritin) 10 mg PO DAILY [facility] Multivitamins/Minerals (Centrum) 1 tab PO DAILY [facility] Ondansetron HCl (Zofran Odt) 8 mg SL Q8H PRN PRN Reason: NAUSEA Pantoprazole Sodium (Protonix) 40 mg PO DAILYAC [facility] Prochlorperazine Maleate (Compazine) 10 mg PO Q6H PRN PRN Reason: NAUSEA Silver Sulfadiazine (Ssd) 1 gm TOP BID [facility] Tramadol HCl (Ultram) 50 mg PO Q8H PRN PRN Reason: PAIN - MILD TO MODERATE (1-7) Vitamin D (Vitamin D3) 5,000 unit PO DAILY [facility] Physical Exam - General General Appearance: Alert, Oriented x3, No acute distress - Head Head exam: Atraumatic, Normocephalic - Eye Eye exam: Normal appearance, EOMI - ENT ENT exam: Mucous membranes moist - Neck Neck exam: Normal inspection (there is a dressing in place right side of neck from prior central line) - Respiratory Respiratory exam: Normal lung sounds bilaterally - Cardiovascular Cardiovascular Exam: Regular rate, Normal rhythm Peripheral Pulses: 2+: Dorsalis Pedis (R), Dorsalis Pedis (L) - GI/Abdominal GI/Abdominal exam: Soft, Normal bowel sounds, Tenderness (right upper quadrant) - exam: Vaginal erythema, Other (erythema to gluteal folds and cleft as well as external labia 2nd radiation therapy, skin is intact) - Extremities Extremities exam: Pedal edema (1-2+ pitting BLE from feet to mid thigh) - Back Back exam: Reports: Normal inspection, Paraspinal tenderness (lumbar s/p hx lumbar fracture ) - Neurological Neurological exam: Alert, CN II-XII intact, Oriented X3 - Psychiatric Psychiatric exam: Normal affect, Normal mood - Skin Distribution of rash: Genitals (radiation burn to perineum and perirectal/inner buttocks) Results - Labs Result Diagrams: 04/24/19 06:00 04/24/19 06:00 VTE H&P Assessment - Risk for VTE Risk for VTE: Yes Risk Level: Moderate Risk Assessment Date: 04/22/19 Risk Assessment Time: 15:18 VTE Orders Placed or Will Be Placed: Yes Plan - Detailed Diagnosis and Plan (1) Physical deconditioning Current Visit: Yes Status: Acute Base Code: R53.81 - OTHER MALAISE Comment: 04/22/19 - PT/OT (2) C. difficile colitis Current Visit: Yes Status: Acute Base Code: A04.72 - ENTEROCOLITIS D/T CLOSTRIDIUM DIFFICILE, NOT SPCF RECUR Comment: 04/22/19 - Stool firm per [facility] report, patient reports still loose, went twice prior to arrival, will recheck stools for c-diff, remain in isolation - Last dose PO Vanco 04/22 (3) Anal cancer Current Visit: Yes Status: Acute Base Code: C21.0 - MALIGNANT NEOPLASM OF ANUS, UNSPECIFIED Comment: 04/22/19 - Follow up with Oncology for further combined chemotherapy and radiation treatment schedule for treatment of thyroid cancer and GCSF - Has completed chemo and radiation for anal cancer 1 week prior to inpatient admission - Wound care to radiation related burn to perineum and perianal/buttocks - Antidiarrheals for management of loose stools (4) HTN (hypertension) Current Visit: Yes Status: Acute Base Code: I10 - ESSENTIAL (PRIMARY) H YPERTENSION Comment: 04/22/19 - HCTZ, ASA (5) CLL (chronic lymphocytic leukemia) Current Visit: Yes Status: Acute Base Code: C91.10 - CHRONIC LYMPHOCYTIC LEUK OF B-CELL TYPE NOT ACHIEVE REMIS Comment: 04/22/19 - No current treatment at this time (6) Osteoporosis Current Visit: Yes Status: Acute Base Code: M81.0 - AGE-RELATED OSTEOPOROSIS W/O CURRENT PATHOLOGICAL FRACTURE Comment: 04/22/19 - Micalacin (7) DVT prophylaxis Current Visit: No Status: Acute Base Code: [id number] - Comment: 04/22/19 - Frequent ambulation - ASA 325 - PT/OT (8) Full code status Current Visit: No Status: Acute Base Code: Z78.9 - OTHER SPECIFIED HEALTH STATUS
[2019-04-22] MEDS: LIDOCAINE 5% PATCH TOP SCH (15:13)
[2019-04-22] MEDS ORDERED: LOPERAMIDE 2 MG CAPSULE PO PRN (15:51)
[2019-04-22] MEDS: TRAMADOL HCL 50 MG TABLET PO PRN (20:35)
[2019-04-22] MEDS: BIFIDOBACTERIUM INFANTIS 4 MG CAPSULE PO SCH (21:45)
[2019-04-22] MEDS: FAMOTIDINE 20MG TABLET PO SCH (21:45)
[2019-04-22] MEDS: SILVER SULFADIAZINE 25 GM CREAM TOP SCH (21:45)
[2019-04-22] MEDS ORDERED: RANITIDINE HCL 150 MG TABLET PO SCH (22:00)
[2019-04-23] MEDS: TRAMADOL HCL 50 MG TABLET PO PRN ×2 (02:57→20:17)
[2019-04-23] MEDS: PANTOPRAZOLE SODIUM 40 MG TABLET PO SCH (06:59)
--- NOTE | 2019-04-23 09:44 | Rehab Evaluation ---
Patient Information - Patient Information Diagnosis: deconditioning, c-diff Ordered Treatment: OT Evaluate and Treat Status: Initial Evaluation Surgery: No Past Medical/Surgical Hx: PAST MEDICAL/SURGICAL HISTORY Past Surgical History Hysterectomy Appendectomy Cholecystectomy Left shoulder reconstruction T &A Breast Reduction nose repair PMH - Respiratory Hx Respiratory Disorders No PMH - Cardiovascular Hx Cardiovascular Disorders Yes Comment: hyperlipidemia PMH - Neuro Hx Neurological Disorders No Hx Seizures No PMH - GI Hx Gastrointestinal Disorders Yes Hx Gastroesophageal Reflux Yes Comment: diarrhea and nausea PMH - Hx Genitourinary Disorders Yes Hx Kidney Stones Yes Hx Urinary Tract Infection Yes PMH - Endocrine Hx Endocrine Disorders Yes Hx Diabetes No Hx Thyroid Disease Yes PMH - Musculoskeletal Hx Musculoskeletal Disorders Yes Hx Arthritis Yes Hx Back Injury Yes Hx Fibromyalgia Yes Hx Gout No Hx Musculoskeletal Disease No Hx Osteoporosis Yes Comment: lupus PMH - Psych Hx Psychiatric Problems No PMH - Hematology/Oncology Hx Hematology/Oncology Yes Disorders Hx Anemia No Hx Blood Disorders Yes: CLL Hx Bruising Yes Hx Cancer Yes: CLL, breast, thyroid, neoplasm of brain Hx Chemotherapy No Hx Radiation Therapy No Hx Clotting Problems No Hx Sickle Cell Disease No Hx Unexplained Bleeding No Hx Blood Transfusion Reaction No Comment: Lupus Premorbid Status: Detail (Pt lives with daughter, son in law, son and grand daughter in a 2 story house with 3 steps and 1 railing at the entrance. She stays on the main level. She has a jacuzzi tub with grab bars and a seat and a low rise toilet. Her son in law is installing grab bars next to her toilet. She is typically responsible for meal prep. Her and daughter share laundry and home mgmt tasks. She has a 4 wheeled walker that she uses to transfer into the walk in shower on the second floor of her home.) Precautions: [place], Fall, Other (Isolation due to c-diff) - Time With Patient Total Time Spent With Patient (Min): 35 Treatment Procedures: Detail (OT eval low complexity) Subjective Information - Subjective Information Per Patient Objective Data - Pain Pain Present: Yes (7/10 pain in tail bone and back) - Mental Status Patient Orientation: Oriented x3 - Visual Perception Appears within normal limits for therapeutic activities (Pt wears glasses at all times.) - ROM Within normal limits (Maury UE AROM WNL) - Strength/Tone Not within normal limits (Maury shoulder strength 3+/5 due to increased back pain, 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 She reports needing assistance with other self cares and she reports being too fatigued to attempt dressing, grooming/hygiene tasks this am.) Therapy Assessment - Therapy Assessment Detail (Pt presents with decreased overall endurance and decreased UE strength due to back pain which are impairing her Ind with ADLs.) Problem List - Problem List Occupational Therapy Problem List: Detail (1. Decreased endurance needed for safe and Ind self cares. 2. Decreased UE strength and endurance needed for Ind ADLs/IADLs. 3. Decreased Ind with self cares including total body dressing and bathing.) Goals - Goals Occupational Therapy Goals: 1. Pt will demonstrate improved overall endurance to allow safe and Ind self care tasks. 2. Pt will participate in UE strengthening tasks to improve UE strength and allow for increased Ind with ADLs. 3. Pt will be safe and Ind with total body dressing. 4. Pt will be Ind with showering in sitting. Prognosis - Prognosis Good Plan - Plan Occupational Therapy Plan: OT 2-4 times per week to address goals as above.
[2019-04-23] MEDS: BIFIDOBACTERIUM INFANTIS 4 MG CAPSULE PO SCH ×2 (10:13→21:28)
[2019-04-23] MEDS: ASPIRIN 325 MG TABLET PO SCH (10:13)
[2019-04-23] MEDS: CALCIUM CARB/VITAMIN D 500MG/200IU PO SCH (10:14)
[2019-04-23] MEDS: LORATADINE 10 MG TABLET PO SCH (10:14)
[2019-04-23] MEDS: HYDROCHLOROTHIAZIDE 25 MG TABLET PO SCH (10:15)
[2019-04-23] MEDS: POTASSIUM CHLORIDE 20 MEQ TABLET PO SCH (10:15)
[2019-04-23] MEDS: CYANOCOBALAMIN (VITAMIN B-12) 100 MCG TABLET PO SCH (10:16)
[2019-04-23] MEDS: CHOLECALCIFEROL 1,000 UNIT TABLET PO SCH (10:18)
[2019-04-23] MEDS: MIACALCIN INH SCH (10:20)
[2019-04-23] MEDS: SILVER SULFADIAZINE 25 GM CREAM TOP SCH ×2 (10:30→21:29)
[2019-04-23] MEDS: MULTIVITAMINS/MINERALS TABLET PO SCH (11:23)
--- NOTE | 2019-04-23 11:55 | Rehab Evaluation ---
Patient Information - Patient Information Diagnosis: deconditioning, c-diff Ordered Treatment: PT Evaluate and Treat Status: Initial Evaluation Surgery: No History: Detail (Pt was hospitalized at [facility] from 04/11/19 to 04/22/19 following two 5-day rounds of chemotherapy and 20 sessions of radiation therapy for anal cancer. During that time, she underwent placement and subsequent removal of rectal tube for management of diarrhea associated with c. diff infection. The tube was removed day before admission.) Past Medical/Surgical Hx: PAST MEDICAL/SURGICAL HISTORY Past Surgical History Hysterectomy Appendectomy Cholecystectomy Left shoulder reconstruction T &A Breast Reduction nose repair PMH - Respiratory Hx Respiratory Disorders No PMH - Cardiovascular Hx Cardiovascular Disorders Yes Comment: hyperlipidemia PMH - Neuro Hx Neurological Disorders No Hx Seizures No PMH - GI Hx Gastrointestinal Disorders Yes Hx Gastroesophageal Reflux Yes Comment: diarrhea and nausea PMH - Hx Genitourinary Disorders Yes Hx Kidney Stones Yes Hx Urinary Tract Infection Yes PMH - Endocrine Hx Endocrine Disorders Yes Hx Diabetes No Hx Thyroid Disease Yes PMH - Musculoskeletal Hx Musculoskeletal Disorders Yes Hx Arthritis Yes Hx Back Injury Yes Hx Fibromyalgia Yes Hx Gout No Hx Musculoskeletal Disease No Hx Osteoporosis Yes Comment: lupus PMH - Psych Hx Psychiatric Problems No PMH - Hematology/Oncology Hx Hematology/Oncology Yes Disorders Hx Anemia No Hx Blood Disorders Yes: CLL Hx Bruising Yes Hx Cancer Yes: CLL, breast, thyroid, neoplasm of brain Hx Chemotherapy No Hx Radiation Therapy No Hx Clotting Problems No Hx Sickle Cell Disease No Hx Unexplained Bleeding No Hx Blood Transfusion Reaction No Comment: Lupus Premorbid Status: Detail (Pt lives with daughter, son in law, son and grand daughter in a 2 story house with 3 steps and 1 railing at the entrance. She stays on the main level. She has a jacuzzi tub with grab bars and a seat and a low rise toilet. She was independent in getting into and out of the tub. Her son in law is installing grab bars next to her toilet and possibly changing the toilet to a higher one. She is typically responsible for meal prep. Her and daughter share laundry and home mgmt tasks. She has a 4 wheeled walker that she uses to transfer into the walk in shower on the second floor of her home. She was not using assistive device for ambulation prior to hospitalization and she had not had any falls.) Social History: Detail Precautions: [place], Fall, Other (Isolation due to c-diff/contact precautions) - Time With Patient Total Time Spent With Patient (Min): 35 Treatment Procedures: Detail (PT Evaluation) Subjective Information - Subjective Information Per Patient (Pt reports that legs feel stiff and painful due to edema, and she has difficulty sitting upright for very long due to back and buttock pain.) Objective Data - Pain Pain Present: Yes Pain Intensity: 5 (LE's) Pain Scale Used: Numeric (1 - 10) - Mental Status Patient Orientation: Oriented x3 - Visual Perception Appears within normal limits for therapeutic activities - ROM Within normal limits (Grossly WNL at hips, knees and ankles, with mild tightness noted at B gastrocnemius muscles.) - Strength/Tone Not within normal limits (3-/5 B hip extension; 3/5 B ankle dorsiflexion; 3+/5 B hip flexion and abduction; 4/5 B hip adduction, B knee extension, L knee flexion; 4-/5 R knee flexion.) - Coordination Appears within normal limits for therapeutic activities - Bed Mobility Needs Assist (Minimal assist to come to sitting at edge of bed and to get back into bed.) - Transfers Needs Assist (CGA for sit/stand from chair or bed to walker.) - Balance Balance Sitting: Good Balance Standing: Good - Sensation Intact (Tender in LE's due to edema.) - Gait Detail (Pt ambulated w/front wheeled walker from bedside around room, about 12 feet, w/CGA. Steady gait, slow.) Therapy Assessment - Therapy Assessment Detail (Pt exhibits proximal LE weakness and general deconditioning associated with medical conditions and hospitalization. She is a good candidate for inpatient rehabilitation to facilitate safe return to home environment.) Patient Education - Patient Education Teaching Topic: Exercise/Activity Response: Verbalize Understanding Teaching Method: Discussion Teaching Recipient: Patient Barriers To Learning: None Problem List - Problem List Physical Therapy Problem List: Detail (1. Requires assist for bed mobility and transfers. 2. LE weakness 3. Impaired activity tolerance.) Goals - Goals Physical Therapy Goals: 1. Pt will be safe and independent w/bed mobility. 2. Pt will safely and independently perform all transfers. 3. Pt will safely and independently ambulate household distances with least restrictive assistive device. 4. Pt will exhibit 4/5 strength or greater in major muscle groups of B LE's for greater stability with ambulation. 5. Pt will tolerate at least 20 minutes of therapeutic activity w/o undue fatigue. Prognosis - Prognosis Good Plan - Plan Physical Therapy Plan: Patient will be seen 1-2x daily M-F for functional mobility and transfer training, gait/balance training, strengthening, and endurance training to facilitate safe return to home environment.
[2019-04-23] MEDS: LIDOCAINE 5% PATCH TOP SCH (13:55)
--- NOTE | 2019-04-23 14:46 | Physical Therapy Tx Note ---
Physical Therapy Tx Note - Treatment Note Tolerated: Good Total Time Spent With Patient: 30 Physical Therapy Tx Note: Detail (Pt up in bathroom w/nrsg upon arrival. Pt reported significant fatigue, requested lying down in bed. Agreeable for therapeutic exercises: performed 10 reps each of B ankle pumps, heel slides, short arc quads, isometric hamstrings, active hip abd/adduction, isometric gluteals. Assisted nrsg with placing air mattress under patient, facilitating rolling, cuing for positioning. Call light and bedside table placed within reach. Encouraged ambulation w/nrsg over weekend.) Physical Therapy Problem List: Detail (1. Requires assist for bed mobility and transfers. 2. LE weakness 3. Impaired activity tolerance.) Physical Therapy Goals: 1. Pt will be safe and independent w/bed mobility. 2. Pt will safely and independently perform all transfers. 3. Pt will safely and independently ambulate household distances with least restrictive assistive device. 4. Pt will exhibit 4/5 strength or greater in major muscle groups of B LE's for greater stability with ambulation. 5. Pt will tolerate at least 20 minutes of therapeutic activity w/o undue fatigue. Prognosis: Good Physical Therapy Plan: Patient will be seen 1-2x daily M-F for functional mobility and transfer training, gait/balance training, strengthening, and endurance training to facilitate safe return to home environment.
[2019-04-23] MEDS: FAMOTIDINE 20MG TABLET PO SCH (21:28)
[2019-04-24] MEDS: PANTOPRAZOLE SODIUM 40 MG TABLET PO SCH (06:05)
[2019-04-24] MEDS: TRAMADOL HCL 50 MG TABLET PO PRN ×2 (06:05→16:26)
[2019-04-24 07:02] LABS: HEMATOCRIT 24.2 % (35.0-47.0); HEMOGLOBIN 7.2 gm/dl (11.6-16.0); MEAN CELL VOLUME 97.2 fl (81-97); MEAN CORPUSCULAR HEMOGLOBIN 28.9 pg (27-33); MEAN CORPUSCULAR HGB CONC 29.8 g/dl (32-36); MEAN PLATELET VOLUME 9.9 fl (7.4-10.4); PLATELET COUNT 139 K/uL (130-400); RED BLOOD COUNT 2.49 M/uL (3.80-5.40); RED CELL DISTRIBUTION WIDTH 23.5 % (11.5-14.5); WHITE BLOOD COUNT W/O DIFF 3.5 K/uL (4.2-12.2)
[2019-04-24 07:16] LABS: ALB/GLOB RATIO 0.8 (1.1-1.8); ALBUMIN 2.4 g/dL (4.0-5.0); ALKALINE PHOSPHATASE 79 U/L (35-104); ALT/SGPT 8 U/L (<33); AST/SGOT 15 U/L (10.0-35.0); BLOOD UREA NITROGEN 5 mg/dL (8-23); CREATININE 0.4 mg/dL (0.5-0.9); EST GLOMERULAR FILTRATION RATE > 60 mL/min; GLUCOSE,RANDOM 96 mg/dL (74-109); TOTAL PROTEIN 5.6 g/dL (6.6-8.7)
[2019-04-24 07:35] LABS: ANISOCYTOSIS 3+
[2019-04-24] MEDS: CHOLECALCIFEROL 1,000 UNIT TABLET PO SCH (11:21)
[2019-04-24] MEDS: CYANOCOBALAMIN (VITAMIN B-12) 100 MCG TABLET PO SCH (11:21)
[2019-04-24] MEDS: ASPIRIN 325 MG TABLET PO SCH (11:21)
[2019-04-24] MEDS: LIDOCAINE 5% PATCH TOP SCH (11:21)
[2019-04-24] MEDS: HYDROCHLOROTHIAZIDE 25 MG TABLET PO SCH (11:21)
[2019-04-24] MEDS: POTASSIUM CHLORIDE 20 MEQ TABLET PO SCH (11:21)
[2019-04-24] MEDS: CALCIUM CARB/VITAMIN D 500MG/200IU PO SCH (11:22)
[2019-04-24] MEDS: SILVER SULFADIAZINE 25 GM CREAM TOP SCH ×2 (11:22→22:14)
[2019-04-24] MEDS: LORATADINE 10 MG TABLET PO SCH (11:22)
[2019-04-24] MEDS: MULTIVITAMINS/MINERALS TABLET PO SCH (11:22)
[2019-04-24] MEDS: BIFIDOBACTERIUM INFANTIS 4 MG CAPSULE PO SCH ×2 (11:24→22:14)
[2019-04-24] MEDS: CONJUGATED ESTROGENS 0.3 MG PO SCH (11:35)
[2019-04-24] MEDS: MIACALCIN INH SCH (11:47)
[2019-04-24] MEDS: FAMOTIDINE 20MG TABLET PO SCH (22:14)
[2019-04-25] MEDS: TRAMADOL HCL 50 MG TABLET PO PRN ×3 (00:20→20:17)
[2019-04-25] MEDS: PANTOPRAZOLE SODIUM 40 MG TABLET PO SCH (06:49)
[2019-04-25] MEDS: CHOLECALCIFEROL 1,000 UNIT TABLET PO SCH (12:05)
[2019-04-25] MEDS: LORATADINE 10 MG TABLET PO SCH (12:07)
[2019-04-25] MEDS: BIFIDOBACTERIUM INFANTIS 4 MG CAPSULE PO SCH ×2 (12:07→22:24)
[2019-04-25] MEDS: MULTIVITAMINS/MINERALS TABLET PO SCH (12:07)
[2019-04-25] MEDS: ASPIRIN 325 MG TABLET PO SCH (12:07)
[2019-04-25] MEDS: SILVER SULFADIAZINE 25 GM CREAM TOP SCH ×2 (12:08→22:24)
[2019-04-25] MEDS: POTASSIUM CHLORIDE 20 MEQ TABLET PO SCH (12:08)
[2019-04-25] MEDS: CALCIUM CARB/VITAMIN D 500MG/200IU PO SCH (12:08)
[2019-04-25] MEDS: CYANOCOBALAMIN (VITAMIN B-12) 100 MCG TABLET PO SCH (12:08)
[2019-04-25] MEDS: MIACALCIN INH SCH (12:09)
[2019-04-25] MEDS: LIDOCAINE 5% PATCH TOP SCH (12:09)
[2019-04-25] MEDS: HYDROCHLOROTHIAZIDE 25 MG TABLET PO SCH (12:22)
[2019-04-25] MEDS: FAMOTIDINE 20MG TABLET PO SCH (22:24)
[2019-04-26] MEDS: TRAMADOL HCL 50 MG TABLET PO PRN ×2 (04:37→16:44)
[2019-04-26] MEDS: PANTOPRAZOLE SODIUM 40 MG TABLET PO SCH (07:01)
[2019-04-26] MEDS: LORATADINE 10 MG TABLET PO SCH (09:43)
[2019-04-26] MEDS: CHOLECALCIFEROL 1,000 UNIT TABLET PO SCH (09:43)
[2019-04-26] MEDS: MULTIVITAMINS/MINERALS TABLET PO SCH (09:43)
[2019-04-26] MEDS: ASPIRIN 325 MG TABLET PO SCH (09:43)
[2019-04-26] MEDS: CYANOCOBALAMIN (VITAMIN B-12) 100 MCG TABLET PO SCH (09:43)
[2019-04-26] MEDS: HYDROCHLOROTHIAZIDE 25 MG TABLET PO SCH (09:44)
[2019-04-26] MEDS: CALCIUM CARB/VITAMIN D 500MG/200IU PO SCH (09:44)
[2019-04-26] MEDS: POTASSIUM CHLORIDE 20 MEQ TABLET PO SCH (09:44)
[2019-04-26] MEDS: BIFIDOBACTERIUM INFANTIS 4 MG CAPSULE PO SCH ×2 (09:44→22:40)
[2019-04-26] MEDS: CONJUGATED ESTROGENS 0.3 MG PO SCH (09:45)
[2019-04-26] MEDS: SILVER SULFADIAZINE 25 GM CREAM TOP SCH ×3 (09:46→22:41)
[2019-04-26] MEDS: LIDOCAINE 2% JELLY 30 ML TUBE TOP PRN ×2 (09:46→16:40)
[2019-04-26] MEDS ORDERED: FLUTICASONE PROPIONATE 50MCG NASAL 16 GM BTL SCH (10:30)
--- NOTE | 2019-04-26 11:01 | Occupational Therapy Tx Note ---
Occupational Therapy Tx Note - Treatment Note Tolerated: Fair Total Time Spent With Patient: 40 (ADL) Occupational Therapy Treatment Note: Detail (S: Pt up in chair, ready for shower. O: Sit to stand and amb to commode with 2 wheeled walker Indly. Pt toileted Indly. Pt doffed PJ gown, briefs and slipper socks with verbal cues for modified technique. Pt amb to shower and completed total body showering in sitting and standing using grab bar while standing. Pt dried self Indly. Pt amb to commode chair with walker and SBA and donned briefs, pants and shirt Indly with short rest breaks as needed. Pt amb to EOB with walker and SBA. Reviewed modified techniques for donning slipper socks, pt was unable to complete Indly. She required mod assist to start slipper socks over toes and was able to truss puller helper heels Indly. Sit to supine Indly and pt left supine. A: Ind with total body showering, min assist for LE dressing using modified techniques. Pt easily fatigued but improved from last week.) Occupational Therapy Problem List: Detail (1. Decreased endurance needed for safe and Ind self cares. 2. Decreased UE strength and endurance needed for Ind ADLs/IADLs. 3. Decreased Ind with self cares including total body dressing and bathing.) Occupational Therapy Goals: 1. Pt will demonstrate improved overall endurance to allow safe and Ind self care tasks. 2. Pt will participate in UE strengthening tasks to improve UE strength and allow for increased Ind with ADLs. 3. Pt will be safe and Ind with total body dressing. 4. Pt will be Ind with showering in sitting. Prognosis: Good Occupational Therapy Plan: OT 2-4 times per week to address goals as above.
[2019-04-26] MEDS: MIACALCIN INH SCH ×2 (14:54→16:42)
--- NOTE | 2019-04-26 14:57 | Physical Therapy Tx Note ---
Physical Therapy Tx Note - Treatment Note Tolerated: Good Total Time Spent With Patient: 25 Physical Therapy Tx Note: Detail (The patient was in chair when PT arrived. The patient ambulated with front wheeled walker 11 feet x 1 to bathroom. Patient then ambulated with front wheeled a distance of 100 feet with supervision for safety only. The patient then requested to brush teeth x 10 minutes. Patient was fatigued after standing to brush her teeth. The patient requested to return to bed and required maximal PA to lift LE's. The patient was independent with upper body. The patient was left in bed with call light within reach.) Physical Therapy Problem List: Detail (1. Requires assist for bed mobility and transfers. 2. LE weakness 3. Impaired activity tolerance.) Physical Therapy Goals: 1. Pt will be safe and independent w/bed mobility. 2. Pt will safely and independently perform all transfers. 3. Pt will safely and independently ambulate household distances with least restrictive assistive device. 4. Pt will exhibit 4/5 strength or greater in major muscle groups of B LE's for greater stability with ambulation. 5. Pt will tolerate at least 20 minutes of therapeutic activity w/o undue fatigue. Physical Therapy Plan: Patient will be seen 1-2x daily M-F for functional mobility and transfer training, gait/balance training, strengthening, and endurance training to facilitate safe return to home environment.
[2019-04-26] MEDS: LIDOCAINE 5% PATCH TOP SCH (16:39)
[2019-04-26] MEDS ORDERED: DOXYCYCLINE HYCLATE 100 MG CAPSULE PO SCH (22:00)
[2019-04-26] MEDS ORDERED: ZANTAC 150 MG PO SCH (22:00)
[2019-04-27] MEDS: OMEPRAZOLE 20 MG CAPSULE.DR PO SCH (08:43)
[2019-04-27] MEDS ORDERED: LIDOCAINE 2% JELLY 30 ML TUBE TOP PRN (08:45)
[2019-04-27] MEDS: HYDROCHLOROTHIAZIDE 25 MG TABLET PO SCH (10:03)
[2019-04-27] MEDS: CALCIUM CARB/VITAMIN D 500MG/200IU PO SCH (10:03)
[2019-04-27] MEDS: CYANOCOBALAMIN (VITAMIN B-12) 100 MCG TABLET PO SCH (10:03)
[2019-04-27] MEDS: MULTIVITAMINS/MINERALS TABLET PO SCH (10:03)
[2019-04-27] MEDS: ASPIRIN 325 MG TABLET PO SCH (10:03)
[2019-04-27] MEDS: BIFIDOBACTERIUM INFANTIS 4 MG CAPSULE PO SCH ×2 (10:03→22:04)
[2019-04-27] MEDS: LORATADINE 10 MG TABLET PO SCH (10:04)
[2019-04-27] MEDS: POTASSIUM CHLORIDE 20 MEQ TABLET PO SCH (10:04)
[2019-04-27] MEDS: CHOLECALCIFEROL 1,000 UNIT TABLET PO SCH (10:04)
[2019-04-27] MEDS: SILVER SULFADIAZINE 25 GM CREAM TOP SCH ×2 (10:07→22:07)
--- NOTE | 2019-04-27 10:39 | Occupational Therapy Tx Note ---
Occupational Therapy Tx Note - Treatment Note Tolerated: Good Total Time Spent With Patient: 56 (4 ADL) Occupational Therapy Treatment Note: Detail (S: Pt supine in bed upon therapist arrival, requests to brush her teeth. O: Supine to EOB w/ light MIN and verbal cues for log roll technique to decrease low back pain. Sit to stand from highly elevated EOB to FWW. Fxl mobility w/ FWW to [facility] [place] over toilet, slow but steady, no LOB. Pt demos ability to wipe in partial stand w/ uni support on walker and standing pant mgmt to/from knee level. Assist to wash buttocks d/t diarrhea painful in buttocks sores. Pt washes hands, brushes teeth and dentures standing sink-side ~9 minutes w/ good walker placement at sink, fxl mobility return to EOB. OT educ. Pt on use of sock aide and founder chairman and chief creative officer seated unsupported at EOB to doff/don underwear, pants, socks d/t back pain w/ bending to feet, Pt demos good follow thru by end of session. Pt has another bout of diarhea, to/from BR and doffs/dons new underwear, pants, and socks at [facility] [place] [place] over toilet w/ fair to good use of founder chairman and chief creative officer and sock aide. Pt returns to bed, MIN assist and cueing for log roll to decrease back pain. A: Pt tolerates session well, motivated, however limited by decreased fxl endurance and generalized weakness. Fatigued post session and requests to hold physical therapy until afternoon. P: Pt will benefit from further OT to increase fxl endurance, knowledge of adaptive tools and techniques to decrease low back pain and fatigue, and to increase safety and independence w/ ADLs and functional TFs.) Occupational Therapy Problem List: Detail (1. Decreased endurance needed for safe and Ind self cares. 2. Decreased UE strength and endurance needed for Ind ADLs/IADLs. 3. Decreased Ind with self cares including total body dressing and bathing.) Occupational Therapy Goals: 1. Pt will demonstrate improved overall endurance to allow safe and Ind self care tasks. 2. Pt will participate in UE strengthening tasks to improve UE strength and allow for increased Ind with ADLs. 3. Pt will be safe and Ind with total body dressing. 4. Pt will be Ind with showering in sitting. Prognosis: Good Occupational Therapy Plan: OT 2-4 times per week to address goals as above.
[2019-04-27] MEDS: LIDOCAINE 5% PATCH TOP SCH (11:49)
--- NOTE | 2019-04-27 13:16 | Physical Therapy Tx Note ---
Physical Therapy Tx Note - Treatment Note Physical Therapy Tx Note: Detail (Patient refused PT this pm secondary to fatig ue from OT session and loose stools.) Physical Therapy Problem List: Detail (1. Requires assist for bed mobility and transfers. 2. LE weakness 3. Impaired activity tolerance.) Physical Therapy Goals: 1. Pt will be safe and independent w/bed mobility. 2. Pt will safely and independently perform all transfers. 3. Pt will safely and independently ambulate household distances with least restrictive assistive device. 4. Pt will exhibit 4/5 strength or greater in major muscle groups of B LE's for greater stability with ambulation. 5. Pt will tolerate at least 20 minutes of therapeutic activity w/o undue fatigue. Physical Therapy Plan: Patient will be seen 1-2x daily M-F for functional mobility and transfer training, gait/balance training, strengthening, and endurance training to facilitate safe return to home environment.
[2019-04-27] MEDS: MIACALCIN INH SCH (15:05)
[2019-04-27] MEDS: REMOVE PATCH 1 EACH MISC TD SCH (22:07)
[2019-04-27] MEDS: RANITIDINE 150 MG PO SCH (22:07)
[2019-04-28] MEDS: TRAMADOL HCL 50 MG TABLET PO PRN ×3 (00:23→14:45)
[2019-04-28] MEDS: OMEPRAZOLE 20 MG CAPSULE.DR PO SCH (06:17)
[2019-04-28 06:34] LABS: ABSOLUTE NEUTROPHIL COUNT 1.38; HEMATOCRIT 24.3 % (35.0-47.0); HEMOGLOBIN 7.3 gm/dl (11.6-16.0); MEAN CORPUSCULAR HEMOGLOBIN 29.4 pg (27-33); MEAN PLATELET VOLUME 9.8 fl (7.4-10.4); PLATELET COUNT 164 K/uL (130-400); RED BLOOD COUNT 2.48 M/uL (3.80-5.40); RED CELL DISTRIBUTION WIDTH 23.4 % (11.5-14.5); WHITE BLOOD COUNT W/O DIFF 3.3 K/uL (4.2-12.2)
[2019-04-28 06:46] LABS: BLOOD UREA NITROGEN 9 mg/dL (8-23); CREATININE 0.5 mg/dL (0.5-0.9); EST GLOMERULAR FILTRATION RATE > 60 mL/min; GLUCOSE,RANDOM 105 mg/dL (74-109)
[2019-04-28 07:00] LABS: ANISOCYTOSIS 1+; HYPOCHROMIA 1+; PLATELET ESTIMATE NORMAL (NORMAL)
[2019-04-28] MEDS: CHOLECALCIFEROL 1,000 UNIT TABLET PO SCH (11:10)
[2019-04-28] MEDS: LORATADINE 10 MG TABLET PO SCH (11:10)
[2019-04-28] MEDS: MULTIVITAMINS/MINERALS TABLET PO SCH (11:11)
[2019-04-28] MEDS: POTASSIUM CHLORIDE 20 MEQ TABLET PO SCH (11:12)
[2019-04-28] MEDS: CALCIUM CARB/VITAMIN D 500MG/200IU PO SCH (11:13)
[2019-04-28] MEDS: CYANOCOBALAMIN (VITAMIN B-12) 100 MCG TABLET PO SCH (11:13)
[2019-04-28] MEDS: ASPIRIN 325 MG TABLET PO SCH (11:13)
[2019-04-28] MEDS: HYDROCHLOROTHIAZIDE 25 MG TABLET PO SCH (11:13)
[2019-04-28] MEDS: BIFIDOBACTERIUM INFANTIS 4 MG CAPSULE PO SCH ×2 (11:14→22:27)
[2019-04-28] MEDS: LIDOCAINE 5% PATCH TOP SCH (11:15)
[2019-04-28 11:58] LABS: CRYPTOSPORIDIUM PARVUM ANTIGEN NOT DETECTED (NOT DETECT)
[2019-04-28 13:19] LABS: MOLECULAR C DIFF TOXIN SCREEN NOT DETECTED (NOT DETECT)
[2019-04-28] MEDS: SILVER SULFADIAZINE 25 GM CREAM TOP SCH ×2 (14:47→22:37)
[2019-04-28] MEDS: CONJUGATED ESTROGENS 0.3 MG PO SCH (14:48)
[2019-04-28] MEDS: MIACALCIN INH SCH (14:48)
[2019-04-28] MEDS: RANITIDINE 150 MG PO SCH (22:27)
[2019-04-28] MEDS: REMOVE PATCH 1 EACH MISC TD SCH (22:37)
[2019-04-29] MEDS: TRAMADOL HCL 50 MG TABLET PO PRN ×2 (04:56→21:46)
[2019-04-29] MEDS: OMEPRAZOLE 20 MG CAPSULE.DR PO SCH (06:18)
[2019-04-29] MEDS: ASPIRIN 325 MG TABLET PO SCH (09:08)
[2019-04-29] MEDS: BIFIDOBACTERIUM INFANTIS 4 MG CAPSULE PO SCH ×2 (09:08→21:42)
[2019-04-29] MEDS: CALCIUM CARB/VITAMIN D 500MG/200IU PO SCH (09:08)
[2019-04-29] MEDS: MULTIVITAMINS/MINERALS TABLET PO SCH (09:09)
[2019-04-29] MEDS: LORATADINE 10 MG TABLET PO SCH (09:09)
[2019-04-29] MEDS: HYDROCHLOROTHIAZIDE 25 MG TABLET PO SCH (09:09)
[2019-04-29] MEDS: POTASSIUM CHLORIDE 20 MEQ TABLET PO SCH (09:10)
[2019-04-29] MEDS: CHOLECALCIFEROL 1,000 UNIT TABLET PO SCH (09:12)
[2019-04-29] MEDS: SILVER SULFADIAZINE 25 GM CREAM TOP SCH ×2 (09:12→21:43)
[2019-04-29] MEDS: LIDOCAINE 5% PATCH TOP SCH (09:12)
[2019-04-29] MEDS: MIACALCIN INH SCH (09:12)
[2019-04-29] MEDS: CYANOCOBALAMIN (VITAMIN B-12) 100 MCG TABLET PO SCH (09:12)
--- NOTE | 2019-04-29 10:12 | Physician Progress Note ---
Subjective - Date Date of Progress Note: 04/29/19 - Admitting Diagnosis Diagnosis: Deconditioning. C-Diff - Subjective Nursing Care Plan Problem List Activity Intolerance (Swing Bed) Start: 04/22/19 14:39 Freq: Status: Complete Protocol: Created 04/22/19 14:39 MHA (Rec: 04/22/19 14:39 MHA ASTS-1) Edit Status 04/28/19 13:24 MMT (Rec: 04/28/19 13:24 MMT ASTS-1) Active=>Complete Altered Thought Process (Fall Risk) Start: 04/22/19 14 :27 Freq: Status: Active Protocol: Created 04/22/19 14:27 MHA (Rec: 04/22/19 14:27 MHA ASTS-1) Impaired Mobility (Fall Risk) Start: 04/22/19 14:27 Freq: Status: Active Protocol: Created 04/22/19 14:27 MHA (Rec: 04/22/19 14:27 MHA [email or web address]-1) Knowledge Deficit (Swing Bed) Start: 04/22/19 14:39 Freq: Status: Complete Protocol: Created 04/22/19 14:39 MHA (Rec: 04/22/19 14:39 MHA ASTS-1) Edit Status 04/28/19 13:24 MMT (Rec: 04/28/19 13:24 MMT ASTS-1) Active=>Complete Pain (Swing Bed) Start: 04/22/19 14:39 Freq: Status: Complete Protocol: Created 04/22/19 14:39 MHA (Rec: 04/22/19 14:39 MHA ASTS-1) Edit Status 04/28/19 13:24 MMT (Rec: 04/28/19 13:24 MMT ASTS-1) Active=>Complete Risk for Injury (Fall Risk) Start: 04/22/19 14:27 Freq: Status: Active Protocol: Created 04/22/19 14:27 MHA (Rec: 04/22/19 14:27 MHA ASTS-1) Skin Integrity, Impaired (Swing Bed) Start: 04/22/19 17:03 Freq: Status: Complete Protocol: Created 04/22/19 17:03 MHA (Rec: 04/22/19 17:03 MHA ASTS-1) Edit Status 04/28/19 13:24 MMT (Rec: 04/28/19 13:24 MMT ASTS-1) Active=>Complete Subjective: Patient reports continued intermittent diarrhea, but overall feels it has improved. Notes improvement in rectal excoriation. Has continued to work with PT/OT. No further complaints. - Subjective Detail Comment: No additional complaints except as noted below General - Cognitive Patterns Speech: Normal, Soft Thought Process: Intact Thought Content: Normal - Communication Select best description of speech pattern: Clear Speech Ability to express ideas and wants: Understood Understanding verbal content: Usually Understands - Mood and Behavior Patterns Appearance: Well Groomed Mood: Normal Attitude: Cooperative Motor Activity: Calm Affect: Appropriate, Sad Affect Comment: Misses her dogs. Hallucinations: Denies - Physical Functioning Activity Level: Up as tolerated Turning: Self ad mateusz ROM Ability: Moves all extremities Assistive Devices: 2 Wheel Walker Ambulation Ability: Independent Bed Mobility: Independent Transfer Ability: Independent Bathing Ability: Independent Personal Hygiene: Independent Dressing Ability: Independent Eating (Feeding) Ability: Independent Toileting Ability: Independent Administer Own Medication: Independent - Continence Bowel Pattern: Normal for Patient Bladder Pattern: Normal Meds/Allergies - Allergies Allergies Allergy/AdvReac Type Severity Reaction Status Date / Time acetaminophen [From Vicodin] Allergy ANAPHYLAXIS Verified 11/27/17 12:06 adhesive Allergy RASH Verified 11/27/17 12:06 hydrocodone bitartrate Allergy ANAPHYLAXIS Verified 11/27/17 12:06 [From Vicodin] indomethacin [From Indocin] Allergy ANAPHYLAXIS Verified 11/27/17 12:06 indomethacin sodium Allergy ANAPHYLAXIS Verified 11/27/17 12:06 [From Indocin] - Active Medications Current Medications Aspirin (Aspirin, Regular) 325 mg PO DAILY [facility] Last Admin: 04/29/19 09:08 Dose: 325 mg Documented by: Calcium/Vitamin D (Calcium 500+D Tablet) 1 tab PO DAILY [facility] Last Admin: 04/29/19 09:08 Dose: 1 tab Documented by: Cyanocobalamin (Vitamin B-12) 100 mcg PO DAILY [facility] Last Admin: 04/29/19 09:12 Dose: 100 mcg Documented by: Diphenhydramine HCl (Benadryl Capsule) 50 mg PO Q6H PRN PRN Reason: NAUSEA Hydrochlorothiazide (Hctz 25mg) 25 mg PO DAILY [facility] Last Admin: 04/29/19 09:09 Dose: 25 mg Documented by: Lidocaine (Lidoderm) 1 each TOP Q24H [facility] Last Admin: 04/29/19 09:12 Dose: 1 each Documented by: Lidocaine HCl (Xylocaine 2% Jelly) 1 ml TOP BID PRN PRN Reason: PAIN - MILD (1-4) Loperamide HCl (Immodium) 2 mg PO QID PRN PRN Reason: DIARRHEA Loratadine (Claritin) 10 mg PO DAILY [facility] Last Admin: 04/29/19 09:09 Dose: 10 mg Documented by: Miscellaneous (Remove Patch) 1 each TD QHS [facility] Last Admin: 04/28/19 22:37 Dose: 1 each Documented by: Multivitamins/Minerals (Centrum) 1 tab PO DAILY [facility] Last Admin: 04/29/19 09:09 Dose: 1 tab Documented by: Omeprazole (Prilosec) 20 mg PO DAILYAC [facility] Last Admin: 04/29/19 06:18 Dose: 20 mg Documented by: Ondansetron HCl (Zofran Odt) 8 mg SL Q8H PRN PRN Reason: NAUSEA Miacalcin [place] 1 each INH DAILY [facility] Last Admin: 04/29/19 09:12 Dose: 1 each Documented by: Conjugated Estrogens (Premarin) 0.3mg Tablet 1 each PO QOD [facility] Last Admin: 04/28/19 14:48 Dose: Not Given Documented by: Patient Own Med: (Ranitidine 150 Mg) 1 each PO QHS [facility] Last Admin: 04/28/19 22:27 Dose: 1 each Documented by: Potassium Chloride (Klor-Con) 20 meq PO DAILY [facility] Last Admin: 04/29/19 09:10 Dose: 20 meq Documented by: Prochlorperazine Maleate (Compazine) 10 mg PO Q6H PRN PRN Reason: NAUSEA Last Admin: 04/23/19 07:46 Dose: 10 mg Documented by: Silver Sulfadiazine (Ssd) 1 gm TOP BID [facility] Last Admin: 04/29/19 09:12 Dose: 1 gm Documented by: Tramadol HCl (Ultram) 50 mg PO Q8H PRN PRN Reason: PAIN - MILD TO MODERATE (1-7) Last Admin: 04/29/19 04:56 Dose: 50 mg Documented by: Vitamin D (Vitamin D3) 5,000 unit PO DAILY [facility] Last Admin: 04/29/19 09:12 Dose: 5,000 unit Documented by: Objective - Vital Signs Vital Signs: Vital Signs - Last 24 Hrs Temp Pulse Resp BP Pulse Ox 04/29/19 08:00 98.4 F 111 H 16 122/74 96 04/28/19 20:00 98.7 F 90 16 104/58 94 L - General General Appearance: Alert, Oriented x3, Cooperative, No acute distress - Head Head exam: Atraumatic, Normocephalic - Eye Eye exam: Normal appearance, EOMI - ENT ENT exam: Mucous membranes moist - Neck Neck exam: Normal inspection - Respiratory Respiratory exam: Normal lung sounds bilaterally - Cardiovascular Cardiovascular Exam: Regular rate, Normal rhythm Peripheral Pulses: 2+: Dorsalis Pedis (R), Dorsalis Pedis (L) - GI/Abdominal GI/Abdominal exam: Soft, Normal bowel sounds. negative: Tenderness - exam: Vaginal erythema, Other (erythema to gluteal folds and cleft as well as external labia 2nd radiation therapy, skin is intact) - Extremities Extremities exam: Pedal edema (1+ pitting BLE from feet to mid thigh) - Back Back exam: Reports: Normal inspection - Neurological Neurological exam: Alert, CN II-XII intact, Oriented X3 - Psychiatric Psychiatric exam: Normal affect, Normal mood - Skin Distribution of rash: Genitals (radiation burn to perineum and perirectal/inner buttocks) H&P Results - Labs Result Diagrams: 04/28/19 06:10 04/28/19 06:10 Labs Last 24 Hours: Laboratory Results - last 24 hr 04/28/19 04/28/19 11:20 11:20 Stool for White Cells Few wbc's observed H Stl C.difficile Tox A&B Not detected Cryptosporid parvum Ag Not detected Giardia lamblia Ag Not detected Discharge Potential - Discharge Needs Community Services Used Prior to Admission: None Patient Discharge Plan Description: Return Home Community Services Needed at Discharge: None Plan - Swing Bed Certification Initial Certification Due: 04/22/19 14 Day Re-Cert Due: 05/06/19 44 Day Re-Cert Due: 06/05/19 74 Day Re-Cert Due: 07/05/19 - Detailed Diagnosis and Plan (1) Physical deconditioning Current Visit: Yes Status: Acute Base Code: R53.81 - OTHER MALAISE Comment: 04/29/19 - Physical deconditioning noted after recent admission for c-diff - PT/OT continuing to work with patient (2) Diarrhea Current Visit: Yes Status: Acute Base Code: R19.7 - DIARRHEA, UNSPECIFIED Comment: 04/29/19 - Continued frequent loose stools - Stool cultures taken 04/28/19: negative for c-diff, cryptosporidium, and giardia. Remaining PCR cultures pending - BMP unchanged (3) History of Clostridioides difficile colitis Current Visit: Yes Status: Acute Base Code: Z86.19 - PERSONAL HISTORY OF OTHER INFECTIOUS AND PARASITIC DISEASES Comment: 04/29/19 - Positive C-diff this past admission - Treated with 10 day course of oral Vanco, last dose 04/22 (4) Anemia Current Visit: Yes Status: Acute Base Code: D64.9 - ANEMIA, UNSPECIFIED Comment: 04/29/19 - Hgb 7.2, 7.3 this admission - Hgb 7's in past admission to [facility] - No signs of bleeding - Adding daily Ferrous sulfate 325mg and multivitamin containing iron - Continue to monitor (5) Anal cancer Current Visit: Yes Status: Acute Base Code: C21.0 - MALIGNANT NEOPLASM OF ANUS, UNSPECIFIED Comment: 04/29/19 - Follow up with Oncology for further combined chemotherapy and radiation treatment schedule for treatment of thyroid cancer and GCSF - Has completed chemo and radiation for anal cancer 1 week prior to inpatient admission - Wound care to radiation related burn to perineum and perianal/buttocks - Antidiarrheals for management of loose stools (6) DVT prophylaxis Current Visit: No Status: Acute Base Code: [id number] - Comment: 04/29/19 - Frequent ambulation - ASA 325 - PT/OT (7) Full code status Current Visit: No Status: Acute Base Code: Z78.9 - OTHER SPECIFIED HEALTH STATUS Comment: 04/29/19 - Full code this admission
--- NOTE | 2019-04-29 11:18 | Physical Therapy Tx Note ---
Physical Therapy Tx Note - Treatment Note Tolerated: Good Total Time Spent With Patient: 25 Physical Therapy Tx Note: Detail (Patient was ambulating to bathroom with nursing upon APARTMENT LEASING CONSULTANT arrival. Patient ambulated 325 feet with wheeled walker SBA x1. Patient performed the following exercises x10 reps each: seated heel raises/toe raises, marching, LAQ, hamstring curls with red theraband, hip abduction with red theraband, hip adductor squeezes, abdominal isometrics, edgar ding hip abduction, standing hip extension, and squats. Patient required several seated rest breaks with standing exercises due to fatigue. Patient transferred sit to and from stand SBA x1. Patient ambulated 10 feet with wheeled walker SBA x1. Patient transferred sit to supine independently. Patient was left supine in bed with call light within reach.) Physical Therapy Problem List: Detail (1. Requires assist for bed mobility and transfers. 2. LE weakness 3. Impaired activity tolerance.) Physical Therapy Goals: 1. Pt will be safe and independent w/bed mobility. 2. Pt will safely and independently perform all transfers. 3. Pt will safely and independently ambulate household distances with least restrictive assistive device. 4. Pt will exhibit 4/5 strength or greater in major muscle groups of B LE's for greater stability with ambulation. 5. Pt will tolerate at least 20 minutes of therapeutic activity w/o undue fatigue. Physical Therapy Plan: Patient will be seen 1-2x daily M-F for functional mobility and transfer training, gait/balance training, strengthening, and endurance training to facilitate safe return to home environment.
--- NOTE | 2019-04-29 13:41 | Physical Therapy Tx Note ---
Physical Therapy Tx Note - Treatment Note Tolerated: Good Total Time Spent With Patient: 20 Physical Therapy Tx Note: Detail (Patient was reclined in chair upon AUTOMOBILE UPHOLSTERER arrival. Patient transferred sit to and from stand SBA x1. Patient ambulated 295 feet with wheeled walker SBA x1. Patient performed the following exercises x10 reps each: rowing with red theraband, shoulder extension with red theraband, shoulder horizontal abduction with red theraband, bicep curls with red theraband, and tricep extension with red theraband. Patient transferred sit to and from stand x3 SBA x1. Patient performed standing heel raises, standing toe raises, standing marching, and standing hamstring curls. Patient required seated rest breaks with standing exercises due to fatigue. Patient declined futher exercises due to fatigue. Patient transferred sit to and from stand SBA x1. Patient ambulated 13 feet with wheeled walker SBA x1. Patient was left seated in bathroom with pull cord within reach, nursing notified.) Physical Therapy Problem List: Detail (1. Requires assist for bed mobility and transfers. 2. LE weakness 3. Impaired activity tolerance.) Physical Therapy Goals: 1. Pt will be safe and independent w/bed mobility. 2. Pt will safely and independently perform all transfers. 3. Pt will safely and independently ambulate household distances with least restrictive assistive device. 4. Pt will exhibit 4/5 strength or greater in major muscle groups of B LE's for greater stability with ambulation. 5. Pt will tolerate at least 20 minutes of therapeutic activity w/o undue fatigue. Prognosis: Good Physical Therapy Plan: Patient will be seen 1-2x daily M-F for functional mobility and transfer training, gait/balance training, strengthening, and endurance training to facilitate safe return to home environment.
[2019-04-29] MEDS: FERROUS SULFATE 325 MG TAB PO SCH (16:46)
[2019-04-29] MEDS: REMOVE PATCH 1 EACH MISC TD SCH (21:42)
[2019-04-29] MEDS: RANITIDINE 150 MG PO SCH (21:42)
[2019-04-29] MEDS ORDERED: TRAMADOL HCL 50 MG TABLET PO ONE (23:33)
[2019-04-29] MEDS: DIPHENHYDRAMINE HCL 25 MG CAPSULE PO PRN (23:36)
[2019-04-30] MEDS: OMEPRAZOLE 20 MG CAPSULE.DR PO SCH (06:43)
[2019-04-30] MEDS: TRAMADOL HCL 50 MG TABLET PO PRN ×3 (06:49→23:19)
[2019-04-30] MEDS: BIFIDOBACTERIUM INFANTIS 4 MG CAPSULE PO SCH ×2 (11:13→23:18)
[2019-04-30] MEDS: ASPIRIN 325 MG TABLET PO SCH (11:14)
[2019-04-30] MEDS: HYDROCHLOROTHIAZIDE 25 MG TABLET PO SCH (11:15)
[2019-04-30] MEDS: LORATADINE 10 MG TABLET PO SCH (11:15)
[2019-04-30] MEDS: MULTIVITAMINS/MINERALS TABLET PO SCH (11:15)
[2019-04-30] MEDS: CALCIUM CARB/VITAMIN D 500MG/200IU PO SCH (11:15)
[2019-04-30] MEDS: CONJUGATED ESTROGENS 0.3 MG PO SCH (11:16)
[2019-04-30] MEDS: LIDOCAINE 5% PATCH TOP SCH (11:16)
[2019-04-30] MEDS: POTASSIUM CHLORIDE 20 MEQ TABLET PO SCH (11:16)
[2019-04-30] MEDS: MIACALCIN INH SCH (11:16)
[2019-04-30] MEDS: CYANOCOBALAMIN (VITAMIN B-12) 100 MCG TABLET PO SCH (11:17)
[2019-04-30] MEDS: CHOLECALCIFEROL 1,000 UNIT TABLET PO SCH (11:17)
[2019-04-30] MEDS: SILVER SULFADIAZINE 25 GM CREAM TOP SCH ×2 (11:17→23:19)
--- NOTE | 2019-04-30 12:18 | Occupational Therapy Tx Note ---
Occupational Therapy Tx Note - Treatment Note Tolerated: Good Total Time Spent With Patient: 40 (2 ADL, 1 TE) Occupational Therapy Treatment Note: Detail (S: Pt reclining in chair upon therapist arrival, agreeable to OT Tx, excited to show therapist her sock slider devices. O: OT educated Pt on how to use 3-piece sock slider to don/doff socks and slippers x3 reps each foot to decrease back pain and fatigue with LB dressing. Pt demos good follow thru by end of practice. Stand pivot TF from recliner to bedside chair for improved posture during ther ex. Upper body strengthening for increased independence and safety w/ ADLs and functional TFs. Armchair pushups 7 reps x2 w/ good follow thru of posture and technique. Yellow theraband exercises 7 reps each exercise w/ rest breaks between and therapist monitoring back pain and grading tasks for increased strength while ensuring back safety. Horizontal ab/add, sword pulls, shoulder flexion, shoulder extension. A: Pt pleasant and motivated, demos good tolerance w/ OT Tx however fatigued at end of session, making functional gains. P: Pt will benefit from continued skilled OT to increase functional strength, endurance, and independence w/ ADLs prior to return to PLOF.) Occupational Therapy Problem List: Detail (1. Decreased endurance needed for safe and Ind self cares. 2. Decreased UE strength and endurance needed for Ind ADLs/IADLs. 3. Decreased Ind with self cares including total body dressing and bathing.) Occupational Therapy Goals: 1. Pt will demonstrate improved overall endurance to allow safe and Ind self care tasks. 2. Pt will participate in UE strengthening tasks to improve UE strength and allow for increased Ind with ADLs. 3. Pt will be safe and Ind with total body dressing. 4. Pt will be Ind with showering in sitting. Prognosis: Good Occupational Therapy Plan: OT 2-4 times per week to address goals as above.
--- NOTE | 2019-04-30 16:04 | Physical Therapy Tx Note ---
Physical Therapy Tx Note - Treatment Note Tolerated: Good Total Time Spent With Patient: 20 Physical Therapy Tx Note: Detail (Patient was up in chair when PT arrived. The patient ambulated with front wheeled walker 80 feet x 1 with supervision for safety only. The patient ambulated on 3 steps with use of railing with supervision for safety. The patient was instructed in LE exercise program for strengthening including: with yellow T-band hip abduction, knee extension, hip adductor squeezes, ankle pumps all x 10 reps and hip marching x 3 reps. The patient declined further activity secondary to back pain. The patient's family is to bring in the patient's 4 wheeled walker so she can practice ambulation with her own device prior to discharge.) Physical Therapy Problem List: Detail (1. Requires assist for bed mobility and transfers. 2. LE weakness 3. Impaired activity tolerance.) Physical Therapy Goals: 1. Pt will be safe and independent w/bed mobility. 2. Pt will safely and independently perform all transfers. 3. Pt will safely and independently ambulate household distances with least restrictive assistive device. 4. Pt will exhibit 4/5 strength or greater in major muscle groups of B LE's for greater stability with ambulation. 5. Pt will tolerate at least 20 minutes of therapeutic activity w/o undue fatigue. Physical Therapy Plan: Patient will be seen 1-2x daily M-F for functional mobility and transfer training, gait/balance training, strengthening, and endurance training to facilitate safe return to home environment.
[2019-04-30] MEDS: FERROUS SULFATE 325 MG TAB PO SCH (16:16)
[2019-04-30] MEDS: RANITIDINE 150 MG PO SCH (23:18)
[2019-04-30] MEDS: REMOVE PATCH 1 EACH MISC TD SCH (23:19)
[2019-04-30] MEDS: DIPHENHYDRAMINE HCL 25 MG CAPSULE PO PRN (23:19)
[2019-05-01] MEDS: TRAMADOL HCL 50 MG TABLET PO PRN ×2 (05:18→16:01)
[2019-05-01] MEDS: OMEPRAZOLE 20 MG CAPSULE.DR PO SCH (06:14)
[2019-05-01] MEDS: OXYCODONE/APAP 7.5MG/325MG TABLET PO PRN ×2 (09:27→19:09)
[2019-05-01] MEDS: CALCIUM CARB/VITAMIN D 500MG/200IU PO SCH (09:29)
[2019-05-01] MEDS: MULTIVITAMINS/MINERALS TABLET PO SCH (09:29)
[2019-05-01] MEDS: HYDROCHLOROTHIAZIDE 25 MG TABLET PO SCH (09:29)
[2019-05-01] MEDS: POTASSIUM CHLORIDE 20 MEQ TABLET PO SCH (09:29)
[2019-05-01] MEDS: CHOLECALCIFEROL 1,000 UNIT TABLET PO SCH (09:29)
[2019-05-01] MEDS: LORATADINE 10 MG TABLET PO SCH (09:29)
[2019-05-01] MEDS: CYANOCOBALAMIN (VITAMIN B-12) 100 MCG TABLET PO SCH (09:29)
[2019-05-01] MEDS: SILVER SULFADIAZINE 25 GM CREAM TOP SCH ×2 (09:30→21:08)
[2019-05-01] MEDS: ASPIRIN 325 MG TABLET PO SCH (09:30)
[2019-05-01] MEDS: BIFIDOBACTERIUM INFANTIS 4 MG CAPSULE PO SCH ×2 (09:30→21:08)
[2019-05-01] MEDS: LIDOCAINE 5% PATCH TOP SCH (09:34)
[2019-05-01] MEDS: MIACALCIN INH SCH (09:34)
[2019-05-01] MEDS: FERROUS SULFATE 325 MG TAB PO SCH (16:01)
[2019-05-01] MEDS ORDERED: CYCLOBENZAPRINE 10MG TABLET PO ONE (20:20)
[2019-05-01] MEDS: RANITIDINE 150 MG PO SCH (21:08)
[2019-05-01] MEDS: REMOVE PATCH 1 EACH MISC TD SCH (21:09)
[2019-05-02] MEDS: TRAMADOL HCL 50 MG TABLET PO PRN ×2 (00:08→20:36)
[2019-05-02] MEDS: OMEPRAZOLE 20 MG CAPSULE.DR PO SCH (06:51)
[2019-05-02] MEDS: POTASSIUM CHLORIDE 20 MEQ TABLET PO SCH (09:08)
[2019-05-02] MEDS: CYANOCOBALAMIN (VITAMIN B-12) 100 MCG TABLET PO SCH (09:08)
[2019-05-02] MEDS: ASPIRIN 325 MG TABLET PO SCH (09:08)
[2019-05-02] MEDS: MULTIVITAMINS/MINERALS TABLET PO SCH (09:08)
[2019-05-02] MEDS: LORATADINE 10 MG TABLET PO SCH (09:08)
[2019-05-02] MEDS: CALCIUM CARB/VITAMIN D 500MG/200IU PO SCH (09:08)
[2019-05-02] MEDS: CHOLECALCIFEROL 1,000 UNIT TABLET PO SCH (09:08)
[2019-05-02] MEDS: HYDROCHLOROTHIAZIDE 25 MG TABLET PO SCH (09:08)
[2019-05-02] MEDS: BIFIDOBACTERIUM INFANTIS 4 MG CAPSULE PO SCH ×2 (09:09→21:46)
[2019-05-02] MEDS: MIACALCIN INH SCH (09:12)
[2019-05-02] MEDS: CONJUGATED ESTROGENS 0.3 MG PO SCH (09:12)
[2019-05-02] MEDS ORDERED: CYCLOBENZAPRINE 10MG TABLET PO PRN (09:14)
[2019-05-02] MEDS ORDERED: TRAMADOL HCL 50 MG TABLET PO PRN (09:16)
[2019-05-02] MEDS: LIDOCAINE 5% PATCH TOP SCH (09:18)
[2019-05-02] MEDS: SILVER SULFADIAZINE 25 GM CREAM TOP SCH ×2 (09:18→21:46)
--- NOTE | 2019-05-02 09:25 | Physician Progress Note ---
Subjective - Date Date of Progress Note: 05/02/19 - Admitting Diagnosis Diagnosis: Deconditioning. C-Diff - Subjective Nursing Care Plan Problem List Activity Intolerance (Swing Bed) Start: 04/22/19 14:39 Freq: Status: Active Protocol: Created 04/22/19 14:39 MHA (Rec: 04/22/19 14:39 MHA ASTS-1) Edit Status 04/28/19 13:24 MMT (Rec: 04/28/19 13:24 MMT ASTS-1) Active=>Complete Edit Status 05/01/19 01:04 LPR (Rec: 05/01/19 01:04 LPR ASTS-1) Complete=>Active Altered Thought Process (Fall Risk) Start: 04/22/19 14:27 Freq: Status: Active Protocol: Created 04/22/19 14:27 MHA (Rec: 04/22/19 14:27 MHA ASTS-1) Impaired Mobility (Fall Risk) Start: 04/22/19 14:27 Freq: Status: Active Protocol: Created 04/22/19 14:27 MHA (Rec: 04/22/19 14:27 MHA ASTS-1) Knowledge Deficit (Swing Bed) Start: 04/22/19 14:39 Freq: Status: Active Protocol: Created 04/22/19 14:39 MHA (Rec: 04/22/19 14:39 MHA ASTS-1) Edit Status 04/28/19 13:24 MMT (Rec: 04/28/19 13:24 MMT ASTS-1) Active=>Complete Edit Status 05/01/19 01:04 LPR (Rec: 05/01/19 01:04 LPR ASTS-1) Complete=>Active Pain (Swing Bed) Start: 04/22/19 14:39 Freq: Status: Active Protocol: Created 04/22/19 14:39 MHA (Rec: 04/22/19 14:39 MHA ASTS-1) Edit Status 04/28/19 13:24 MMT (Rec: 04/28/19 13:24 MMT ASTS-1) Active=>Complete Edit Status 05/01/19 01:04 LPR (Rec: 05/01/19 01:04 LPR ASTS-1) Complete=>Active Risk for Injury (Fall Risk) Start: 04/22/19 14:27 Freq: Status: Active Protocol: Created 04/22/19 14:27 MHA (Rec: 04/22/19 14:27 MHA ASTS-1) Skin Integrity, Impaired (Swing Bed) Start: 04/22/19 17:03 Freq: Status: Active Protocol: Created 04/22/19 17:03 MHA (Rec: 04/22/19 17:03 MHA ASTS-1) Edit Status 04/28/19 13:24 MMT (Rec: 04/28/19 13:24 MMT ASTS-1) Active=>Complete Edit Status 05/01/19 01:04 LPR (Rec: 05/01/19 01:04 LPR ASTS-1) Complete=>Active Subjective: Patient has reported worsening of chronic low-back pain over the past few days. Denies new injury. No urinary symptoms, fever, or elevation in WBC. Reports minimal relief from warm compresses, lidoderm patches, percocet, walking, or muscle relaxer. Reports relief at home with warm compress and ultram. Will increase Ultram dose and trial increased dose of flexeril qhs. Also noted is increased tachycardia, which could be due to dehydration vs anemia. Will increase PO intake today, repeat CBC in the morning, and continue to monitor HR today. Consider transfusion tomorrow if tachycardia and anemia persist. - Subjective Detail Comment: No additional complaints except as noted below Musculoskeletal: Reports: Back pain General - Cognitive Patterns Speech: Normal, Soft Thought Process: Intact Thought Content: Normal - Communication Select best description of speech pattern: Clear Speech Ability to express ideas and wants: Understood Understanding verbal content: Usually Understands - Mood and Behavior Patterns Appearance: Well Groomed Mood: Normal Attitude: Cooperative Motor Activity: Calm Affect: Appropriate, Sad Affect Comment: Misses her dogs. Hallucinations: Denies - Physical Functioning Activity Level: Up as tolerated Turning: Self ad mateusz ROM Ability: Moves all extremities Assistive Devices: 2 Wheel Walker Ambulation Ability: Independent Bed Mobility: Independent Transfer Ability: Independent Bathing Ability: Independent Personal Hygiene: Independent Dressing Ability: Independent Eating (Feeding) Ability: Independent Toileting Ability: Independent Administer Own Medication: Independent - Continence Bowel Pattern: Normal for Patient Bladder Pattern: Normal Meds/Allergies - Allergies Allergies Allergy/AdvReac Type Severity Reaction Status Date / Time acetaminophen [From Vicodin] Allergy ANAPHYLAXIS Verified 11/27/17 12:06 adhesive Allergy RASH Verified 11/27/17 12:06 hydrocodone bitartrate Allergy ANAPHYLAXIS Verified 11/27/17 12:06 [From Vicodin] indomethacin [From Indocin] Allergy ANAPHYLAXIS Verified 11/27/17 12:06 indomethacin sodium Allergy ANAPHYLAXIS Verified 11/27/17 12:06 [From Indocin] - Active Medications Current Medications Aspirin (Aspirin, Regular) 325 mg PO DAILY [facility] Last Admin: 05/02/19 09:08 Dose: 325 mg Documented by: Calcium/Vitamin D (Calcium 500+D Tablet) 1 tab PO DAILY [facility] Last Admin: 05/02/19 09:08 Dose: 1 tab Documented by: Cyanocobalamin (Vitamin B-12) 100 mcg PO DAILY [facility] Last Admin: 05/02/19 09:08 Dose: 100 mcg Documented by: Cyclobenzaprine HCl (Flexeril) 10 mg PO QHS PRN PRN Reason: back pain Diphenhydramine HCl (Benadryl Capsule) 50 mg PO Q6H PRN PRN Reason: NAUSEA Last Admin: 04/30/19 23:19 Dose: 50 mg Documented by: Ferrous Sulfate (Iron) 325 mg PO QPM [facility] Last Admin: 05/01/19 16:01 Dose: 325 mg Documented by: Hydrochlorothiazide (Hctz 25mg) 25 mg PO DAILY [facility] Last Admin: 05/02/19 09:08 Dose: 25 mg Documented by: Lidocaine (Lidoderm) 1 each TOP Q24H [facility] Last Admin: 05/02/19 09:18 Dose: 1 each Documented by: Lidocaine HCl (Xylocaine 2% Jelly) 1 ml TOP BID PRN PRN Reason: PAIN - MILD (1-4) Loperamide HCl (Immodium) 2 mg PO QID PRN PRN Reason: DIARRHEA Loratadine (Claritin) 10 mg PO DAILY [facility] Last Admin: 05/02/19 09:08 Dose: 10 mg Documented by: Miscellaneous (Remove Patch) 1 each TD QHS [facility] Last Admin: 05/01/19 21:09 Dose: Not Given Documented by: Multivitamins/Minerals (Centrum) 1 tab PO DAILY [facility] Last Admin: 05/02/19 09:08 Dose: 1 tab Documented by: Omeprazole (Prilosec) 20 mg PO DAILYAC [facility] Last Admin: 05/02/19 06:51 Dose: 20 mg Documented by: Ondansetron HCl (Zofran Odt) 8 mg SL Q8H PRN PRN Reason: NAUSEA Oxycodone/Acetaminophen (Percocet 7.5-325 Mg Tablet) 1 each PO Q8H PRN PRN Reason: PAIN - MOD TO SEVERE (5-10) Stop: 05/07/19 11:22 Last Admin: 05/01/19 19:09 Dose: 1 each Documented by: Miacalcin [place] 1 each INH DAILY [facility] Last Admin: 05/02/19 09:12 Dose: 1 each Documented by: Conjugated Estrogens (Premarin) 0.3mg Tablet 1 each PO QOD [facility] Last Admin: 05/02/19 09:12 Dose: Not Given Documented by: Patient Own Med: (Ranitidine 150 Mg) 1 each PO QHS [facility] Last Admin: 05/01/19 21:08 Dose: 1 each Documented by: Potassium Chloride (Klor-Con) 20 meq PO DAILY [facility] Last Admin: 05/02/19 09:08 Dose: 20 meq Documented by: Prochlorperazine Maleate (Compazine) 10 mg PO Q6H PRN PRN Reason: NAUSEA Last Admin: 04/23/19 07:46 Dose: 10 mg Documented by: Silver Sulfadiazine (Ssd) 1 gm TOP BID [facility] Last Admin: 05/02/19 09:18 Dose: 1 gm Documented by: Tramadol HCl (Ultram) 50 - 100 mg PO Q8H PRN PRN Reason: PAIN - MILD (1-4) Vitamin D (Vitamin D3) 5,000 unit PO DAILY [facility] Last Admin: 05/02/19 09:08 Dose: 5,000 unit Documented by: Objective - Vital Signs Vital Signs: Vital Signs - Last 24 Hrs Temp Pulse Resp BP Pulse Ox 05/02/19 08:00 98.3 F 117 H 17 117/64 97 05/01/19 20:00 98.2 F 103 H 16 135/79 98 - General General Appearance: Alert, Oriented x3, Cooperative, No acute distress - Head Head exam: Atraumatic, Normocephalic - Eye Eye exam: Normal appearance, EOMI - ENT ENT exam: Mucous membranes moist - Neck Neck exam: Normal inspection - Respiratory Respiratory exam: Normal lung sounds bilaterally - Cardiovascular Cardiovascular Exam: Regular rate, Tachycardia Peripheral Pulses: 2+: Dorsalis Pedis (R), Dorsalis Pedis (L) - GI/Abdominal GI/Abdominal exam: Soft, Normal bowel sounds. negative: Tenderness - Rectal Rectal exam: Deferred - exam: Vaginal erythema, Other (erythema to gluteal folds and cleft as well as external labia 2nd radiation therapy, skin is intact) - Extremities Extremities exam: Pedal edema (1+ pitting BLE from feet to mid thigh) - Back Back exam: Reports: Normal inspection - Neurological Neurological exam: Alert, CN II-XII intact, Oriented X3 - Psychiatric Psychiatric exam: Normal affect, Normal mood - Skin Distribution of rash: Genitals (radiation burn to perineum and perirectal/inner buttocks) H&P Results - Labs Result Diagrams: 04/28/19 06:10 04/28/19 06:10 Labs Last 24 Hours: Laboratory Results - last 24 hr 04/28/19 10:20 Stl Campylobacter Cult Not detected Stl E.coli Shiga Toxins Not detected Stl Enterotoxigenic E PCR Not detected Stl P. shigelloides PCR Not detected Stool Salmonella PCR Not detected Stool Shigella PCR Not detected St Y.enterocolitica PCR Not detected Stool Vibrio (PCR) Not detected Discharge Potential - Discharge Needs Community Services Used Prior to Admission: None Patient Discharge Plan Description: Return Home Community Services Needed at Discharge: None Plan - Swing Bed Certification Initial Certification Due: 04/22/19 14 Day Re-Cert Due: 05/06/19 44 Day Re-Cert Due: 06/05/19 74 Day Re-Cert Due: 07/05/19 - Detailed Diagnosis and Plan (1) Physical deconditioning Current Visit: Yes Status: Acute Base Code: R53.81 - OTHER MALAISE Comment: 05/02/19 - Physical deconditioning noted after recent admission for c-diff - PT/OT continuing to work with patient (2) Diarrhea Current Visit: Yes Status: Acute Base Code: R19.7 - DIARRHEA, UNSPECIFIED Comment: 05/02/19 - Continued frequent loose stools - Stool cultures taken 04/28/19: negative for c-diff, cryptosporidium, and giardia. Remaining PCR cultures also negative - BMP unchanged - Stools starting to firm up at this time (3) Chronic low back pain Current Visit: Yes Status: Acute Base Code: M54.5 - LOW BACK PAIN; G89.29 - OTHER CHRONIC PAIN Comment: 05/02/19 - Chronic low back pain after L1 fracture several years ago - Managed with Ultram, occasional Percocet, and heating pad at home - Worsening pain past few days - Increasing Ultram to 50-100mg q8h, adding Flexeril qhs, lidoderm patch, and increasing physical activity - Percocet prn (4) Tachycardia Current Visit: Yes Status: Acute Base Code: R00.0 - TACHYCARDIA, UNSPECIFIED Comment: 05/02/19 - Asymptomatic tachycardia 100-120, patient denies history of tachycardia - Dehydration due to frequent diarrhea vs symptomatic anemia with hgb 7.2-7.3 - Increase PO hydration today - Recheck HR q4h, recheck CBC in the morning - Consider PRBC transfusion if tachycardia persists (5) History of Clostridioides difficile colitis Current Visit: Yes Status: Acute Base Code: Z86.19 - PERSONAL HISTORY OF OTHER INFECTIOUS AND PARASITIC DISEASES Comment: 05/02/19 - Positive C-diff this past admission - Treated with 10 day course of oral Vanco, last dose 04/22 (6) Anemia Current Visit: Yes Status: Acute Base Code: D64.9 - ANEMIA, UNSPECIFIED Comment: 05/02/19 - Hgb 7.2, 7.3 this admission - Hgb 7's in past admission to [facility] - No signs of bleeding - Adding daily Ferrous sulfate 325mg and multivitamin containing iron - Continue to monitor (7) Anal cancer Current Visit: Yes Status: Acute Base Code: C21.0 - MALIGNANT NEOPLASM OF ANUS, UNSPECIFIED Comment: 05/02/19 - Follow up with Oncology for further combined chemotherapy and radiation treat ment schedule for treatment of thyroid cancer and GCSF - Has completed chemo and radiation for anal cancer 1 week prior to inpatient admission - Wound care to radiation related burn to perineum and perianal/buttocks - Antidiarrheals for management of loose stools (8) DVT prophylaxis Current Visit: No Status: Acute Base Code: [id number] - Comment: 05/02/19 - Frequent ambulation - ASA 325 - PT/OT (9) Full code status Current Visit: No Status: Acute Base Code: Z78.9 - OTHER SPECIFIED HEALTH STATUS Comment: 05/02/19 - Full code this admission
[2019-05-02] MEDS: ONDANSETRON 4 MG ODT TABLET SL PRN (17:53)
[2019-05-02] MEDS: FERROUS SULFATE 325 MG TAB PO SCH (17:59)
[2019-05-02] MEDS: OMEPRAZOLE 20 MG PO SCH (21:46)
[2019-05-02] MEDS: REMOVE PATCH 1 EACH MISC TD SCH (21:46)
[2019-05-03 06:27] LABS: HEMATOCRIT 25.2 % (35.0-47.0); HEMOGLOBIN 7.5 gm/dl (11.6-16.0); MEAN CELL VOLUME 98.1 fl (81-97); MEAN CORPUSCULAR HEMOGLOBIN 29.1 pg (27-33); MEAN CORPUSCULAR HGB CONC 29.8 g/dl (32-36); MEAN PLATELET VOLUME 9.2 fl (7.4-10.4); PLATELET COUNT 154 K/uL (130-400); RED BLOOD COUNT 2.57 M/uL (3.80-5.40); RED CELL DISTRIBUTION WIDTH 23.4 % (11.5-14.5); WHITE BLOOD COUNT W/O DIFF 5.1 K/uL (4.2-12.2)
[2019-05-03 06:42] LABS: BLOOD UREA NITROGEN 11 mg/dL (8-23); CREATININE 0.6 mg/dL (0.5-0.9); EST GLOMERULAR FILTRATION RATE > 60 mL/min; GLUCOSE,RANDOM 105 mg/dL (74-109)
[2019-05-03 06:55] LABS: PLATELET ESTIMATE NORMAL (NORMAL)
[2019-05-03 06:56] LABS: ABSOLUTE NEUTROPHIL COUNT 2.88
[2019-05-03] MEDS: TRAMADOL HCL 50 MG TABLET PO PRN ×2 (06:59→19:02)
[2019-05-03] MEDS: LIDOCAINE 5% PATCH TOP SCH ×2 (08:50→09:08)
[2019-05-03] MEDS: HYDROCHLOROTHIAZIDE 25 MG TABLET PO SCH (09:04)
[2019-05-03] MEDS: MULTIVITAMINS/MINERALS TABLET PO SCH (09:04)
[2019-05-03] MEDS: CALCIUM CARB/VITAMIN D 500MG/200IU PO SCH (09:04)
[2019-05-03] MEDS: ASPIRIN 325 MG TABLET PO SCH (09:04)
[2019-05-03] MEDS: CYANOCOBALAMIN (VITAMIN B-12) 100 MCG TABLET PO SCH (09:04)
[2019-05-03] MEDS: POTASSIUM CHLORIDE 20 MEQ TABLET PO SCH ×2 (09:05→21:12)
[2019-05-03] MEDS: BIFIDOBACTERIUM INFANTIS 4 MG CAPSULE PO SCH ×2 (09:05→21:12)
[2019-05-03] MEDS: LORATADINE 10 MG TABLET PO SCH (09:05)
[2019-05-03] MEDS: CHOLECALCIFEROL 1,000 UNIT TABLET PO SCH (09:05)
[2019-05-03] MEDS: SILVER SULFADIAZINE 25 GM CREAM TOP SCH ×2 (09:07→21:13)
[2019-05-03] MEDS: MIACALCIN INH SCH (09:07)
[2019-05-03] MEDS: OMEPRAZOLE 20 MG PO SCH ×2 (09:09→21:13)
--- NOTE | 2019-05-03 10:35 | Occupational Therapy Tx Note ---
Occupational Therapy Tx Note - Treatment Note Tolerated: Good Total Time Spent With Patient: 40 (ADL) Occupational Therapy Treatment Note: Detail (S: Pt reports she is feeling better although she still has back pain. O: Pt requested showering this am. Pt able to demonstrate Ind with supine to sit, sit to stand and amb to bathroom with 4 wheeled walker Indly. Pt doffed PJ gown and briefs Indly in standing. Pt amb to shower and completed total body showering in sitting and standing Indly using hand held shower and grab bar. Pt dried self Indly in standing and donned shirt in standing Indly. Pt amb to EOB with 4 wheeled walker Indly. Pt donned briefs and pants with director of collections and archives Indly. Pt demonstrated donning slipper sock with sock aid with min verbal cues. Pt doffed slipper socks and donned slip on slippers Indly with director of collections and archives. Pt combed hair Indly. Sit to supine Indly. A: Pt is Ind with total body dressing using adaptive equipment and energy conservation and breathing techniques. She did display mild shortness of breath with ADL activity.) Occupational Therapy Problem List: Detail (1. Decreased endurance needed for safe and Ind self cares. 2. Decreased UE strength and endurance needed for Ind ADLs/IADLs. 3. Decreased Ind with self cares including total body dressing and bathing.) Occupational Therapy Goals: 1. Pt will demonstrate improved overall endurance to allow safe and Ind self care tasks. 2. Pt will participate in UE strengthening tasks to improve UE strength and allow for increased Ind with ADLs. 3. Pt will be safe and Ind with total body dressing. 4. Pt will be Ind with showering in sitting. Prognosis: Good Occupational Therapy Plan: OT 2-4 times per week to address goals as above.
[2019-05-03] MEDS: ASCORBIC ACID 500 MG TAB PO SCH (12:45)
--- NOTE | 2019-05-03 16:27 | Physical Therapy Tx Note ---
Physical Therapy Tx Note - Treatment Note Tolerated: Good Total Time Spent With Patient: 25 Physical Therapy Tx Note: Detail (The patient was up in recliner when PT arrived. The patient ambulated with 4 wheeled walker a distance of 453 feet x 1 on tile and ramp surface to Rehab Dept. The patient completed a tub transfer, stepping over tub lip with supervision for safety only. The patient was returned to room via wheelchair due to fatigue. The patient returned to bed and was independent with sit to supine transfer. The patient continues to exhibit increased endurance for physical activity.) Physical Therapy Problem List: Detail (1. Requires assist for bed mobility and transfers. 2. LE weakness 3. Impaired activity tolerance.) Physical Therapy Goals: 1. Pt will be safe and independent w/bed mobility. 2. Pt will safely and independently perform all transfers. 3. Pt will safely and independently ambulate household distances with least restrictive assistive device. 4. Pt will exhibit 4/5 strength or greater in major muscle groups of B LE's for greater stability with ambulation. 5. Pt will tolerate at least 20 minutes of therapeutic activity w/o undue fatigue. Physical Therapy Plan: Patient will be seen 1-2x daily M-F for functional mobility and transfer training, gait/balance training, strengthening, and endurance training to facilitate safe return to home environment.
[2019-05-03] MEDS: FERROUS SULFATE 325 MG TAB PO SCH (17:09)
[2019-05-03] MEDS: REMOVE PATCH 1 EACH MISC TD SCH (21:13)
[2019-05-04] MEDS: TRAMADOL HCL 50 MG TABLET PO PRN ×2 (08:06→19:36)
[2019-05-04] MEDS: BIFIDOBACTERIUM INFANTIS 4 MG CAPSULE PO SCH ×2 (09:09→21:10)
[2019-05-04] MEDS: ASPIRIN 325 MG TABLET PO SCH (09:10)
[2019-05-04] MEDS: CALCIUM CARB/VITAMIN D 500MG/200IU PO SCH (09:10)
[2019-05-04] MEDS: MULTIVITAMINS/MINERALS TABLET PO SCH (09:10)
[2019-05-04] MEDS: LORATADINE 10 MG TABLET PO SCH (09:11)
[2019-05-04] MEDS: HYDROCHLOROTHIAZIDE 25 MG TABLET PO SCH (09:11)
[2019-05-04] MEDS: POTASSIUM CHLORIDE 20 MEQ TABLET PO SCH ×2 (09:11→21:10)
[2019-05-04] MEDS: OMEPRAZOLE 20 MG PO SCH ×2 (09:16→21:10)
[2019-05-04] MEDS: CONJUGATED ESTROGENS 0.3 MG PO SCH (09:16)
[2019-05-04] MEDS: MIACALCIN INH SCH (09:16)
[2019-05-04] MEDS: SILVER SULFADIAZINE 25 GM CREAM TOP SCH ×2 (09:17→21:10)
[2019-05-04] MEDS: CHOLECALCIFEROL 1,000 UNIT TABLET PO SCH (09:17)
[2019-05-04] MEDS: ASCORBIC ACID 500 MG TAB PO SCH (09:17)
[2019-05-04] MEDS: CYANOCOBALAMIN (VITAMIN B-12) 100 MCG TABLET PO SCH (09:17)
--- NOTE | 2019-05-04 11:52 | Occupational Therapy Tx Note ---
Occupational Therapy Tx Note - Treatment Note Tolerated: Good Total Time Spent With Patient: 35 (ADL) Occupational Therapy Treatment Note: Detail (S: Pt ready for OT although she has increased back pain today. O: Sit to stand and amb to rehab gym 450 feet+ with 4 wheeled walker and supervision. Pt educated on pacing, work simplification/energy conservation techniques and she was able to demonstrate techniques while completing light meal prep tasks. She was able to access refrigerator, cupboards, sink and use stove safely while preparing an egg using walker. She was then able to clean up including washing dishes. Pt demonstrated safe use of walker and she was able to sit when needed while cooking. Pt amb 450 feet + back to room with 4 wheeled walker safely. Sit to supine Indly. A: Pt continues to improve her endurance and is safe with light meal prep tasks and functional mobility needed for ADLs/IADLs.) Occupational Therapy Problem List: Detail (1. Decreased endurance needed for safe and Ind self cares. 2. Decreased UE strength and endurance needed for Ind ADLs/IADLs. 3. Decreased Ind with self cares including total body dressing and bathing.) Occupational Therapy Goals: 1. Pt will demonstrate improved overall endurance to allow safe and Ind self care tasks. 2. Pt will participate in UE strengthening tasks to improve UE strength and allow for increased Ind with ADLs. 3. Pt will be safe and Ind with total body dressing. 4. Pt will be Ind with showering in sitting. Prognosis: Good Occupational Therapy Plan: OT 2-4 times per week to address goals as above.
[2019-05-04] MEDS: FERROUS SULFATE 325 MG TAB PO SCH (17:12)
[2019-05-04] MEDS: LIDOCAINE 5% PATCH TOP SCH (17:12)
[2019-05-04] MEDS: REMOVE PATCH 1 EACH MISC TD SCH (21:10)
[2019-05-05] MEDS: TRAMADOL HCL 50 MG TABLET PO PRN ×3 (01:42→22:45)
[2019-05-05] MEDS ORDERED: OXYCODONE/APAP 7.5MG/325MG TABLET PO PRN (09:22)
[2019-05-05] MEDS: HYDROCHLOROTHIAZIDE 25 MG TABLET PO SCH (09:58)
[2019-05-05] MEDS: ASPIRIN 325 MG TABLET PO SCH (09:59)
[2019-05-05] MEDS: MULTIVITAMINS/MINERALS TABLET PO SCH (09:59)
[2019-05-05] MEDS: CALCIUM CARB/VITAMIN D 500MG/200IU PO SCH (09:59)
[2019-05-05] MEDS: POTASSIUM CHLORIDE 20 MEQ TABLET PO SCH ×2 (09:59→22:43)
[2019-05-05] MEDS: BIFIDOBACTERIUM INFANTIS 4 MG CAPSULE PO SCH ×2 (09:59→22:43)
[2019-05-05] MEDS: ASCORBIC ACID 500 MG TAB PO SCH (10:00)
[2019-05-05] MEDS: CHOLECALCIFEROL 1,000 UNIT TABLET PO SCH (10:00)
[2019-05-05] MEDS: CYANOCOBALAMIN (VITAMIN B-12) 100 MCG TABLET PO SCH (10:00)
[2019-05-05] MEDS: OMEPRAZOLE 20 MG PO SCH ×2 (10:01→22:43)
[2019-05-05] MEDS: SILVER SULFADIAZINE 25 GM CREAM TOP SCH ×2 (10:01→22:44)
[2019-05-05] MEDS: LORATADINE 10 MG TABLET PO SCH (10:02)
[2019-05-05] MEDS: LIDOCAINE 5% PATCH TOP SCH (10:11)
--- NOTE | 2019-05-05 13:38 | Physical Therapy Tx Note ---
Physical Therapy Tx Note - Treatment Note Tolerated: Good Total Time Spent With Patient: 35 Physical Therapy Tx Note: Detail (The patient was up in chair when PT arrived. The patient ambulated to stairs and climbing a flight of 3 steps and 7 steps with use of 2 hand holds on one railing with supervision for safety only. The patient then ambulated with 4 wheeled walker a distance of 500 feet x 2 ( to and from Rehab dept with rest in between). Patient completed 1 and a half minutes on the Nustep. The patient continues to exhibit improved endurance for activity. The patient returned to bed after treatment with call light within reach.) Physical Therapy Problem List: Detail (1. Requires assist for bed mobility and transfers. 2. LE weakness 3. Impaired activity tolerance.) Physical Therapy Goals: 1. Pt will be safe and independent w/bed mobility. 2. Pt will safely and independently perform all transfers. 3. Pt will safely and independently ambulate household distances with least restrictive assistive device. 4. Pt will exhibit 4/5 strength or greater in major muscle groups of B LE's for greater stability with ambulation. 5. Pt will tolerate at least 20 minutes of therapeutic activity w/o undue fatigue. Physical Therapy Plan: Patient will be seen 1-2x daily M-F for functional mobility and transfer training, gait/balance training, strengthening, and endurance training to facilitate safe return to home environment.
--- NOTE | 2019-05-05 14:02 | Occupational Therapy Tx Note ---
Occupational Therapy Tx Note - Treatment Note Occupational Therapy Treatment Note: Detail (Pt refusing OT this afternoon due to being too fatigued after PT session.) Occupational Therapy Problem List: Detail (1. Decreased endurance needed for safe and Ind self cares. 2. Decreased UE strength and endurance needed for Ind ADLs/IADLs. 3. Decreased Ind with self cares including total body dressing and bathing.) Occupational Therapy Goals: 1. Pt will demonstrate improved overall endurance to allow safe and Ind self care tasks. 2. Pt will participate in UE strengthening tasks to improve UE strength and allow for increased Ind with ADLs. 3. Pt will be safe and Ind with total body dressing. 4. Pt will be Ind with showering in sitting. Occupational Therapy Plan: OT 2-4 times per week to address goals as above.
[2019-05-05] MEDS: MIACALCIN INH SCH (15:47)
[2019-05-05] MEDS: FERROUS SULFATE 325 MG TAB PO SCH (18:53)
[2019-05-05] MEDS: REMOVE PATCH 1 EACH MISC TD SCH (22:44)
[2019-05-06] MEDS: BIFIDOBACTERIUM INFANTIS 4 MG CAPSULE PO SCH ×2 (10:36→21:50)
[2019-05-06] MEDS: ASPIRIN 325 MG TABLET PO SCH (10:37)
[2019-05-06] MEDS: MULTIVITAMINS/MINERALS TABLET PO SCH (10:37)
[2019-05-06] MEDS: CALCIUM CARB/VITAMIN D 500MG/200IU PO SCH (10:37)
[2019-05-06] MEDS: HYDROCHLOROTHIAZIDE 25 MG TABLET PO SCH (10:38)
[2019-05-06] MEDS: POTASSIUM CHLORIDE 20 MEQ TABLET PO SCH ×2 (10:38→21:50)
[2019-05-06] MEDS: LORATADINE 10 MG TABLET PO SCH (10:38)
[2019-05-06] MEDS: CONJUGATED ESTROGENS 0.3 MG PO SCH (10:39)
[2019-05-06] MEDS: MIACALCIN INH SCH (10:39)
[2019-05-06] MEDS: CHOLECALCIFEROL 1,000 UNIT TABLET PO SCH (10:40)
[2019-05-06] MEDS: SILVER SULFADIAZINE 25 GM CREAM TOP SCH ×2 (10:40→21:52)
[2019-05-06] MEDS: ASCORBIC ACID 500 MG TAB PO SCH (10:41)
[2019-05-06] MEDS: CYANOCOBALAMIN (VITAMIN B-12) 100 MCG TABLET PO SCH (10:41)
[2019-05-06] MEDS: LIDOCAINE 5% PATCH TOP SCH (10:44)
[2019-05-06] MEDS: OMEPRAZOLE 20 MG PO SCH ×2 (10:44→21:51)
--- NOTE | 2019-05-06 10:50 | Physical Therapy Tx Note ---
Physical Therapy Tx Note - Treatment Note Tolerated: Good Total Time Spent With Patient: 25 Physical Therapy Tx Note: Detail (Patient was reclined in chair upon LOSS CONTROL TECHNICIAN arrival. Patient transferred sit to and from stand independently. Patient ambulated 13 feet x2 with four wheeled walker SBA x1. Patient transferred sit to and from stand independently. Patient ambulated 500 feet with four wheeled walker SBA x1. Patient transferred sit to and from stand independently. Patient performed Nustep L1 x2 minutes. Patient transferred sit to and from stand independently. Patient ambulated 500 feet with four wheeled walker SBA x1. Patient tolerated treatment well. Patient required seated rest break after ambulation to rehab department and after Nustep due to fatigue. Patient reports feeling tired after treatment. Patient was left reclined in chair after treatment.) Physical Therapy Problem List: Detail (1. Requires assist for bed mobility and transfers. 2. LE weakness 3. Impaired activity tolerance.) Physical Therapy Goals: 1. Pt will be safe and independent w/bed mobility. 2. Pt will safely and independently perform all transfers. 3. Pt will safely and independently ambulate household distances with least restrictive assistive device. 4. Pt will exhibit 4/5 strength or greater in major muscle groups of B LE's for greater stability with ambulation. 5. Pt will tolerate at least 20 minutes of therapeutic activity w/o undue fatigue. Prognosis: Good Physical Therapy Plan: Patient will be seen 1-2x daily M-F for functional mobility and transfer training, gait/balance training, strengthening, and endurance training to facilitate safe return to home environment.
--- NOTE | 2019-05-06 13:37 | Physical Therapy Tx Note ---
Physical Therapy Tx Note - Treatment Note Tolerated: Good Total Time Spent With Patient: 10 Physical Therapy Tx Note: Detail (Patient was reclined in chair sleeping upon CLIENT SUCCESS SPECIALIST arrival. Patient transferred sit to and from stand independently. Patient ambulated 45 feet with four wheeled walker SBA x1. Patient descended and ascended 3 steps, then 8 steps with using stairwell railing. Patient ambulated 51 feet with four wheeled walker SBA x1. Patient transferred sit to supine independently. Patient declined further treatment due to tired. Patient was left supine in bed with call light within reach.) Physical Therapy Problem List: Detail (1. Requires assist for bed mobility and transfers. 2. LE weakness 3. Impaired activity tolerance.) Physical Therapy Goals: 1. Pt will be safe and independent w/bed mobility. 2. Pt will safely and independently perform all transfers. 3. Pt will safely and independently ambulate household distances with least restrictive assistive device. 4. Pt will exhibit 4/5 strength or greater in major muscle groups of B LE's for greater stability with ambulation. 5. Pt will tolerate at least 20 minutes of therapeutic activity w/o undue fatigue. Prognosis: Good Physical Therapy Plan: Patient will be seen 1-2x daily M-F for functional mobility and transfer training, gait/balance training, strengthening, and endurance training to facilitate safe return to home environment.
[2019-05-06] MEDS: FERROUS SULFATE 325 MG TAB PO SCH (16:07)
[2019-05-06] MEDS: TRAMADOL HCL 50 MG TABLET PO PRN (16:07)
[2019-05-06] MEDS: ONDANSETRON 4 MG ODT TABLET SL PRN (17:09)
--- NOTE | 2019-05-06 20:52 | Discharge Summary ---
Providers Discharge Summary Date: 05/07/19 Date of admission: 04/22/19 14:02 Expected Date of Discharge: 05/07/19 Attending physician: YANET COLÓN Primary care physician: DEBI ALEMAN N.P. Physical Exam - Vital Signs Vital Signs: Vital Signs - Last 24 Hrs Temp Pulse Resp BP BP Pulse Ox 05/06/19 15:18 98.2 F 103/88 05/06/19 07:21 98.2 F 91 H 16 103/88 94 L - General General Appearance: Alert, Oriented x3, Cooperative, No acute distress - Head Head exam: Atraumatic, Normocephalic, Normal inspection - Neck Neck exam: Normal inspection - Respiratory Respiratory exam: Normal lung sounds bilaterally. negative: Rales, Respiratory distress, Rhonchi, Stridor, Wheezes - Cardiovascular Cardiovascular Exam: Regular rate, Normal rhythm, Normal heart sounds Peripheral Pulses: 2+: Dorsalis Pedis (R), Dorsalis Pedis (L) - GI/Abdominal GI/Abdominal exam: Soft, Normal bowel sounds. negative: Tenderness - Rectal Rectal exam: Deferred - exam: Vaginal erythema, Other (erythema to gluteal folds and cleft as well as external labia 2nd radiation therapy, skin is intact (has been improving since admission)) - Extremities Extremities exam: Normal inspection, Full ROM. negative: Pedal edema - Back Back exam: Reports: Normal inspection - Neurological Neurological exam: Alert, Normal gait, Oriented X3 - Psychiatric Psychiatric exam: Normal affect, Normal mood - Skin Skin exam: Other Distribution of rash: Genitals (radiation burn to perineum and perirectal/inner buttocks (improving since admission)) Hospitalization - Hospitalization Admission Diagnosis: Deconditioning. C-Diff - Problem List/Discharge Diagnosis (1) Physical deconditioning Status: Acute Base Code: R53.81 - OTHER MALAISE Comment: 05/07/19 - Physical deconditioning noted after recent admission for c-diff - PT/OT continuing to work with patient, patient making independent transfers and able to ambulate without assistance - PT/OT cleared for safe D/C home (2) Diarrhea Status: Acute Base Code: R19.7 - DIARRHEA, UNSPECIFIED Comment: 05/07/19 - Patient having small formed stools - Stool cultures taken 04/28/19: negative for c-diff, cryptosporidium, and giardia. Remaining PCR cultures also negative - CMP unremarkable (3) Chronic low back pain Status: Acute Base Code: M54.5 - LOW BACK PAIN; G89.29 - OTHER CHRONIC PAIN Comment: 05/07/19 - Chronic low back pain after L1 fracture several years ago - Managed with Ultram, occasional Percocet, and heating pad at home - Worsening over hospital course - Increased Ultram to 50-100mg q8h, added Flexeril qhs, lidoderm patch, increased Percocet QID from TID, and increasing physical activity (4) Tachycardia Status: Acute Base Code: R00.0 - TACHYCARDIA, UNSPECIFIED Comment: 05/07/19 - Asymptomatic tachycardia throughout course of hospital stay ranging from 100- 120, patient denies history of tachycardia - Tachycardia resolved, HR running in low 90's over course of past couple days - Dehydration due to frequent diarrhea vs symptomatic anemia with hgb 7.2-7.3, today Hgb at 8.0 - Consider PRBC transfusion if tachycardia persists, not needed during hospital stay (5) History of Clostridioides difficile colitis Status: Acute Base Code: Z86.19 - PERSONAL HISTORY OF OTHER INFECTIOUS AND PARASITIC DISEASES Comment: 05/07/19 - Positive C-diff this past admission - Treated with 10 day course of oral Vanco, last dose 04/22 - Stool sample sent throughout admission negative for infectious organism - Having formed BM for past couple days (6) Anemia Status: Acute Discharge Diagnosis: Anemia type: unspecified type Qualified Code(s): D64.9 - Anemia, unspecified Base Code: D64.9 - ANEMIA, UNSPECIFIED Comment: 05/07/19 - Hgb 7.2, 7.3 this admission, today 8.0 prior to D/C - Hgb 7's in past admission to [facility] - No signs of bleeding - Adding daily Ferrous sulfate 325mg and multivitamin containing iron, will continue at home - Continue to monitor (7) Anal cancer Status: Acute Base Code: C21.0 - MALIGNANT NEOPLASM OF ANUS, UNSPECIFIED Comment: 05/07/19 - Follow up with Oncology for further combined chemotherapy and radiation treatment schedule for treatment of thyroid cancer and GCSF - Has completed chemo and radiation for anal cancer 1 week prior to inpatient admission - Wound care to radiation related burn to perineum and perianal/buttocks - Wounds improving with Silvadene cream use, pt to continue at home (8) DVT prophylaxis Status: Acute Base Code: [id number] - Comment: 05/07/19 - Frequent ambulation - ASA 325 - PT/OT (9) Full code status Status: Acute Base Code: Z78.9 - OTHER SPECIFIED HEALTH STATUS Comment: 05/07/19 - Full code this admission - Hospitalization Course Disposition: Home, Self-Care Hospital Course: 78 year old female admitted to swing bed program after inpatient admission 04/11/19-04/22/19 at [facility] for c-diff. She has past medical history of CLL, anal carcinoma, thyroid cancer, SLE, brain aneurysms, and HTN. She had been having diarrhea several months prior to arrival to [facility] with history of multiple episodes of diverticulitis. Patient had chemo and radiation to anal area about a week prior to admission to [facility] (for anal cancer only, not CLL) which she noticed had worsened the diarrhea with associated decreased PO intake and generalized weakness. She repots that was her last round of treatment. She had a brief ICU stay for hypotension and tachycardia which was not improved with IV hydration of 4L while in the ED which required pressor support. She was first on Cefepime and Vancomycin to treat an uncomplicated sigmoid diverticulitis f ound on CT abd/pelvis and subsequently changed to PO Vanco after stools were found to be positive for c-diff. No active metastatic disease noted on CT abd/pevis. She was able to be weaned off pressors on day 7 of admission and was transferred to general medical floor. She had a rectal tube placed while at [facility] for stool management and radiation related avitia to buttocks. She has completed a full 10-day course of oral Vanco and began having more firm stools beginning 04/20 and had recal tube removed. Vitals and labs stable at time of discharge from [facility] and has been tolerating PO intake without difficulty. Oncology consulted and recommend GCSF for neutropenia. Of note, she is awaiting treatment plan for thyroid cancer as she states her oncologist wanted to be sure she was out of the hospital and stable prior to discussing the treatment plan. PCP: Debi Aleman DNP Oncology: Dr Weston Levine 05/07/19: Patient evaluated prior to D/C today, remains A&Ox4. Patient excited and prepared to go home. Patient feels safe with independent mobility and transfers. BLE edema resolved. Diarrhea resolved, no indication for current infection. Chronic back pain has improved per patient. Patient cleared from all services and daughter to come pack her up this AM. No new nursing concerns. Lab work repeated this AM prior to D/C and unremarkable. Abnormal Labs: Abnormal Lab Results 04/24/19 04/24/19 04/28/19 Range/Units 06:40 06:40 06:10 WBC 3.5 L 3.3 L (4.2-12.2) K/uL RBC 2.49 L 2.48 L (3.80-5.40) M/uL Hgb 7.2 L 7.3 L (11.6-16.0) gm/dl Hct 24.2 L 24.3 L (35.0-47.0) % MCV 97.2 H 98.0 H (81-97) fl MCHC 29.8 L 30.0 L (32-36) g/dl RDW 23.5 H 23.4 H (11.5-14.5) % Band Neutrophils % 6.0 H (0-5) % Lymphocytes (16-45) % Monocytes 12.0 H 14.0 H (0-9) % Potassium (3.4-4.5) mmol/L Chloride (98-107) mmol/L BUN 5 L (8-23) mg/dL Creatinine 0.4 L (0.5-0.9) mg/dL Calcium 8.5 L (8.8-10.2) mg/dL Total Protein 5.6 L (6.6-8.7) g/dL Albumin 2.4 L (4.0-5.0) g/dL Albumin/Globulin Ratio 0.8 L (1.1-1.8) Stool for White Cells (NO WBC'S) 04/28/19 05/03/19 05/03/19 Range/Units 11:20 06:15 06:15 WBC (4.2-12.2) K/uL RBC 2.57 L (3.80-5.40) M/uL Hgb 7.5 L (11.6-16.0) gm/dl Hct 25.2 L (35.0-47.0) % MCV 98.1 H (81-97) fl MCHC 29.8 L (32-36) g/dl RDW 23.4 H (11.5-14.5) % Band Neutrophils % (0-5) % Lymphocytes 15.0 L (16-45) % Monocytes 26.0 H (0-9) % Potassium 3.2 L (3.4-4.5) mmol/L Chloride 96 L (98-107) mmol/L BUN (8-23) mg/dL Creatinine (0.5-0.9) mg/dL Calcium (8.8-10.2) mg/dL Total Protein (6.6-8.7) g/dL Albumin (4.0-5.0) g/dL Albumin/Globulin Ratio (1.1-1.8) Stool for White Cells Few wbc's observed H (NO WBC'S) Condition at Discharge: (2) Stable VTE Discharge VTE Reason For No Overlap Therapy: Not Indicated Discharge Medications - Discharge Medications Prescriptions: Multivitamin/Iron/Folic Acid [Centrum] 1 tab PO DAILY 30 Days #30 tablet Ferrous Sulfate [Iron] 325 mg PO QPM 30 Days #30 tablet Home Medications: Ambulatory Orders Calcitonin,Roff,Synthetic [Calcitonin-Roff] 1 inh INH DAILY 10/17/13 [Last Taken 05/17/16] Loratadine [Claritin] 10 mg PO DAILY 10/17/13 [Last Taken 05/17/16] Tramadol HCl 50 mg PO QID PRN 10/17/13 [Last Taken 05/17/16] Estrogens, Conjugated [Premarin] 0.3 mg PO DAILY 05/17/16 [Last Taken 05/17/16] Hydrochlorothiazide [Hctz] 25 mg PO DAILY 05/17/16 [Last Taken 05/17/16] Omeprazole [Prilosec] 20 mg PO DAILYAC 05/17/16 [Last Taken 05/17/16] Lidocaine 1 each TOP DAILY 12/01/17 [Last Taken Unknown] Cyclobenzaprine HCl [Flexeril] 5 mg PO QHS PRN 15 Days #15 tablet 12/09/17 [Last Taken Unknown] Oxycodone HCl/Acetaminophen [Percocet 7.5mg/325mg] 1 each PO Q8H PRN #45 tab 12/09/17 [Last Taken Unknown] Ascorbic Acid [Vitamin C] 500 mg PO DAILY tab 05/07/19 [Last Taken Unknown] Aspirin, Regular 325 mg PO DAILY tablet 05/07/19 [Last Taken Unknown] Bifidobacterium Infantis [Align] 4 mg PO BID capsule 05/07/19 [Last Taken Unknown] Cyanocobalamin (Vitamin B-12) [Vitamin B-12] 100 mcg PO DAILY tablet 05/07/19 [Last Taken Unknown] Ferrous Sulfate [Iron] 325 mg PO QPM 30 Days #30 tablet 05/07/19 [Last Taken Unknown] Loperamide HCl [Immodium] 2 mg PO QID PRN capsule 05/07/19 [Last Taken Unknown] Multivitamin/Iron/Folic Acid [Centrum] 1 tab PO DAILY 30 Days #30 tablet 05/07/19 [Last Taken Unknown] Ondansetron [Zofran Odt] 8 mg SL Q8H PRN tab.rapdis 05/07/19 [Last Taken Unknown] Potassium Chloride [Klor-Con] 20 meq PO BID tablet.sa 05/07/19 [Last Taken Unknown] Prochlorperazine Maleate [Compazine] 10 mg PO Q6H PRN tablet 05/07/19 [Last Taken Unknown] Silver Sulfadiazine [Silvadene Cream] 1 gm TOP BID tube 05/07/19 [Last Taken Unknown] Discharge Plan - Discharge Instructions Activity at Discharge: As Per Physical Therapy, Increase Activity as Tolerated Diet at Discharge: Advance to Usual Diet Instructions: Silver Sulfadiazine (On the skin), Fall Prevention for Older Adults (DC), Weakness (DC) Additional Instructions: Activity: As Per Physical Therapy Increase Activity as Tolerated Diet: Advance to Usual Diet Consults: [-[facility] will start PT and OT services at home next week. They will contact you to schedule the first visit, and can be reached at [phone] -[facility] will call you to complete an assessment so they can start bringing meals at lunch time. They can be reached at [phone] or [phone]] Follow Up: [-Schedule an appointment with your PCP Debi Aleman for within 7-10 days of discharge. They can be reached at [phone] -Follow up with Oncology, Dr Levine for treatment of Thyroid cancer. They can be reached at [phone]] Dressing/Wound Care: (Type) (Change) Additional: [Continue home medications New medications Take a multivitamin with iron as prescribed daily, next dose is tomorrow Iron 325mg every evening, please take next dose tonight return to the emergency department with any new or worsening conditions] Quality Measures - Quality Measures Quality Measures: Advance Directives, Documentation of Current Medications in Medical Record, Elder Maltreatment Screen and Follow-Up Plan, Screening for High Blood Pressure and F/U Documented - Current Medications Quality Measure: Measure #130: Documentation of Current Medications Documentation of Current Medications: <Current Medications Documented/Reviewed> [Y2953] - Blood Pressure Screening Quality Measure: Screening for High Blood Pressure and Follow-Up Documented Does Patient Have Any of the Following: Active Dx of HTN Blood Pressure Classification: Pre-Hypertensive BP Reading Systolic Measurement: 103 Diastolic Measurement: 88 Screening for High Blood Pressure: Patient Exclusion, Hx of HTN [G9744] - Advance Directives Quality Measure: Measure #47: Care Plan Advance Directives Established: Yes Advance Directives Information Provided To Patient: No Advance Directives on File: Yes Living Will: Yes Power of Crewman [employer]oured Personnel Carrier M113: Yes Power of Crewman [employer]oured Personnel Carrier M113 Name: Melissa Greenfield Advance Care Planning: <Care Plan/Decision Maker Documented; Discussed & Documented> [6803F] - Elder Abuse Suspicion Index Screening: Elder Abuse Suspicion Index Screening Rely on people for bathing, dressing, shopping, banking, etc: Yes Prevented from getting food, clothes, medication, etc: No Made to feel shamed or threatened by someone: No Forced to sign papers or use money against will: No Feel afraid, touched in ways not wanted or hurt physically: No Poor eye contact, withdrawn, malnourished, cuts or bruises: No Screening Result: Negative result EASI Reference Information: Loren HUYNH, Fidel C, Dale D, Juan Jackson.Development and validation of a tool to assist physicians identification of elder abuse: The Elder Abuse Suspicion Index (EASI ). Journal of Elder Abuse and Neglect, 2008; 20 (3): 276-300. - Elder Maltreatment Screen Quality Measures: Elder Maltreatment Screen and Follow-Up Plan Elder Maltreatment Screen: <Negative, No Follow-Up Plan Required> [G8734]
[2019-05-06] MEDS: DIPHENHYDRAMINE HCL 25 MG CAPSULE PO PRN (21:52)
[2019-05-06] MEDS: REMOVE PATCH 1 EACH MISC TD SCH (21:52)
[2019-05-07 06:35] LABS: HEMATOCRIT 26.7 % (35.0-47.0); MEAN CELL VOLUME 99.6 fl (81-97); MEAN PLATELET VOLUME 9.7 fl (7.4-10.4); PLATELET COUNT 156 K/uL (130-400); RED BLOOD COUNT 2.68 M/uL (3.80-5.40); RED CELL DISTRIBUTION WIDTH 23.5 % (11.5-14.5); WHITE BLOOD COUNT W/O DIFF 5.6 K/uL (4.2-12.2)
[2019-05-07 06:43] LABS: MEAN CORPUSCULAR HEMOGLOBIN 29.8 pg (27-33)
[2019-05-07 06:51] LABS: ANISOCYTOSIS 3+
[2019-05-07 06:54] LABS: ALB/GLOB RATIO 0.8 (1.1-1.8); ALBUMIN 3.1 g/dL (4.0-5.0); ALKALINE PHOSPHATASE 66 U/L (35-104); ALT/SGPT 7 U/L (<33); AST/SGOT 15 U/L (10.0-35.0); BLOOD UREA NITROGEN 12 mg/dL (8-23); CREATININE 0.6 mg/dL (0.5-0.9); EST GLOMERULAR FILTRATION RATE > 60 mL/min; GLUCOSE,RANDOM 102 mg/dL (74-109); TOTAL PROTEIN 6.9 g/dL (6.6-8.7)
[2019-05-07] MEDS: CALCIUM CARB/VITAMIN D 500MG/200IU PO SCH ×2 (08:16→09:02)
[2019-05-07] MEDS: LIDOCAINE 5% PATCH TOP SCH ×2 (08:16→09:02)
[2019-05-07] MEDS: ASCORBIC ACID 500 MG TAB PO SCH ×2 (08:17→09:03)
[2019-05-07] MEDS: MULTIVITAMINS/MINERALS TABLET PO SCH ×2 (08:17→09:02)
[2019-05-07] MEDS: BIFIDOBACTERIUM INFANTIS 4 MG CAPSULE PO SCH ×2 (08:17→09:01)
[2019-05-07] MEDS: ASPIRIN 325 MG TABLET PO SCH ×2 (08:17→09:02)
[2019-05-07] MEDS: LORATADINE 10 MG TABLET PO SCH ×2 (08:17→09:02)
[2019-05-07] MEDS: HYDROCHLOROTHIAZIDE 25 MG TABLET PO SCH ×2 (08:18→09:02)
[2019-05-07] MEDS: CYANOCOBALAMIN (VITAMIN B-12) 100 MCG TABLET PO SCH ×2 (08:18→09:03)
[2019-05-07] MEDS: CHOLECALCIFEROL 1,000 UNIT TABLET PO SCH ×2 (08:18→09:03)
[2019-05-07] MEDS: POTASSIUM CHLORIDE 20 MEQ TABLET PO SCH ×2 (08:18→09:02)
[2019-05-07] MEDS: MIACALCIN INH SCH ×2 (08:19→09:02)
[2019-05-07] MEDS: OMEPRAZOLE 20 MG PO SCH ×2 (08:19→09:02)
[2019-05-07] MEDS: TRAMADOL HCL 50 MG TABLET PO PRN (08:20)
[2019-05-07] MEDS: SILVER SULFADIAZINE 25 GM CREAM TOP SCH ×2 (08:21→09:03)
--- NOTE | 2019-05-07 09:59 | Rehab Discharge Summary ---
Patient Information - Patient Information Diagnosis: deconditioning, c-diff Ordered Treatment: PT Evaluate and Treat Surgery: No History: Detail (Pt was hospitalized at [facility] from 04/11/19 to 04/22/19 following two 5-day rounds of chemotherapy and 20 sessions of radiation therapy for anal cancer. During that time, she underwent placement and subsequent removal of rectal tube for management of diarrhea associated with c. diff infection. The tube was removed day before admission.) Past Medical/Surgical Hx: PAST MEDICAL/SURGICAL HISTORY Past Surgical History Hysterectomy Appendectomy Cholecystectomy Left shoulder reconstruction T &A Breast Reduction nose repair PMH - Respiratory Hx Respiratory Disorders No PMH - Cardiovascular Hx Cardiovascular Disorders Yes Comment: hyperlipidemia PMH - Neuro Hx Neurological Disorders No Hx Seizures No PMH - GI Hx Gastrointestinal Disorders Yes Hx Gastroesophageal Reflux Yes Comment: diarrhea and nausea PMH - Hx Genitourinary Disorders Yes Hx Kidney Stones Yes Hx Urinary Tract Infection Yes PMH - Endocrine Hx Endocrine Disorders Yes Hx Diabetes No Hx Thyroid Disease Yes PMH - Musculoskeletal Hx Musculoskeletal Disorders Yes Hx Arthritis Yes Hx Back Injury Yes Hx Fibromyalgia Yes Hx Gout No Hx Musculoskeletal Disease No Hx Osteoporosis Yes Comment: lupus PMH - Psych Hx Psychiatric Problems No PMH - Hematology/Oncology Hx Hematology/Oncology Yes Disorders Hx Anemia No Hx Blood Disorders Yes: CLL Hx Bruising Yes Hx Cancer Yes: CLL, breast, thyroid, neoplasm of brain Hx Chemotherapy No Hx Radiation Therapy No Hx Clotting Problems No Hx Sickle Cell Disease No Hx Unexplained Bleeding No Hx Blood Transfusion Reaction No Comment: Lupus Premorbid Status: Detail (Pt lives with daughter, son in law, son and grand daughter in a 2 story house with 3 steps and 1 railing at the entrance. She stays on the main level. She has a jacuzzi tub with grab bars and a seat and a low rise toilet. Her son in law is installing grab bars next to her toilet. She is typically responsible for meal prep. Her and daughter share laundry and home mgmt tasks. She has a 4 wheeled walker that she uses to transfer into the walk in shower on the second floor of her home.) Social History: Detail Precautions: [place], Fall, Other (Isolation due to c-diff) Subjective Information - Subjective Information Per Patient (The patient has varying complaints of back pain. The patient had no concerns physically going home except for being able to climb her stairs.) Objective Data - Mental Status Patient Orientation: Oriented x3 - Visual Perception Appears within normal limits for therapeutic activities - ROM Within normal limits (LE AROM is WNL.) - Strength/Tone Not within normal limits (Patient's bilateral LE strength is generally 4 to 4+/5 throughout except for dorsiflexors which were 4-/5.) - Coordination Appears within normal limits for therapeutic activities - Bed Mobility Independent (The patient was independent with supine to and from sit transfer and scooting up in bed.) - Transfers Independent (The patient was independent with sit to and from stand transfer, tub transfer( stepping over tub lip) and toilet transfer.) - Balance Balance Sitting: Good Balance Standing: Good - Sensation Intact - Gait Detail (The patient ambulated with 4 wheeled walker a distance of 500 feet plus x 2 independently. The patient ambulated on inclined surface with supervision for safety. The patient ambulated on a flight of 3 steps and a flight of 7 steps with use of one railing (2 hand holds) with supervision for safety.) Therapy Assessment - Therapy Assessment Detail (The patient exhibited improved strength and endurance for physical activity. The patient was independent with all mobility, with supervision on stairs recommended for safety. Home PT is recommended to assess the patient's safety with stair climbing and tub transfers as well as mobility in home environment.) Patient Education - Patient Education Teaching Topic: Exercise/Activity (The patient was independent with seated LE s trengthening exercises with use of theraband.) Response: Return Demonstration Teaching Method: Discussion, Demonstration, Handout Teaching Recipient: Patient Barriers To Learning: Age Related Problem List - Problem List Physical Therapy Problem List: Detail (1. Requires assist for bed mobility and transfers. 2. LE weakness 3. Impaired activity tolerance.) Occupational Therapy Problem List: Detail (1. Decreased endurance needed for safe and Ind self cares. 2. Decreased UE strength and endurance needed for Ind ADLs/IADLs. 3. Decreased Ind with self cares including total body dressing and bathing.) Goals - Goals Physical Therapy Goals: 1. Pt will be safe and independent w/bed mobility. (Goal Met). 2. Pt will safely and independently perform all transfers. (Goal Met). 3. Pt will safely and independently ambulate household distances with least restrictive assistive device.(Goal Met). 4. Pt will exhibit 4/5 strength or greater in major muscle groups of B LE's for greater stability with ambulation. (Goal Met). 5. Pt will tolerate at least 20 minutes of therapeutic activity w/o undue fatigue. Occupational Therapy Goals: 1. Pt will demonstrate improved overall endurance to allow safe and Ind self care tasks. 2. Pt will participate in UE strengthening tasks to improve UE strength and allow for increased Ind with ADLs. 3. Pt will be safe and Ind with total body dressing. 4. Pt will be Ind with showering in sitting. Plan - Plan Physical Therapy Plan: The patient is discharged from [facility] to home. The patient is to receive Home PT services. Occupational Therapy Plan: OT 2-4 times per week to address goals as above.
--- NOTE | 2019-05-07 12:11 | Rehab Discharge Summary ---
Patient Information - Patient Information Diagnosis: deconditioning, c-diff Ordered Treatment: OT Evaluate and Treat Surgery: No History: Detail (Pt was hospitalized at [facility] from 04/11/19 to 04/22/19 following two 5-day rounds of chemotherapy and 20 sessions of radiation therapy for anal cancer. During that time, she underwent placement and subsequent removal of rectal tube for management of diarrhea associated with c. diff infection. The tube was removed day before admission.) Past Medical/Surgical Hx: PAST MEDICAL/SURGICAL HISTORY Past Surgical History Hysterectomy Appendectomy Cholecystectomy Left shoulder reconstruction T &A Breast Reduction nose repair PMH - Respiratory Hx Respiratory Disorders No PMH - Cardiovascular Hx Cardiovascular Disorders Yes Comment: hyperlipidemia PMH - Neuro Hx Neurological Disorders No Hx Seizures No PMH - GI Hx Gastrointestinal Disorders Yes Hx Gastroesophageal Reflux Yes Comment: diarrhea and nausea PMH - Hx Genitourinary Disorders Yes Hx Kidney Stones Yes Hx Urinary Tract Infection Yes PMH - Endocrine Hx Endocrine Disorders Yes Hx Diabetes No Hx Thyroid Disease Yes PMH - Musculoskeletal Hx Musculoskeletal Disorders Yes Hx Arthritis Yes Hx Back Injury Yes Hx Fibromyalgia Yes Hx Gout No Hx Musculoskeletal Disease No Hx Osteoporosis Yes Comment: lupus PMH - Psych Hx Psychiatric Problems No PMH - Hematology/Oncology Hx Hematology/Oncology Yes Disorders Hx Anemia No Hx Blood Disorders Yes: CLL Hx Bruising Yes Hx Cancer Yes: CLL, breast, thyroid, neoplasm of brain Hx Chemotherapy No Hx Radiation Therapy No Hx Clotting Problems No Hx Sickle Cell Disease No Hx Unexplained Bleeding No Hx Blood Transfusion Reaction No Comment: Lupus Premorbid Status: Detail (Pt lives with daughter, son in law, son and grand daughter in a 2 story house with 3 steps and 1 railing at the entrance. She stays on the main level. She has a jacuzzi tub with grab bars and a seat and a low rise toilet. Her son in law is installing grab bars next to her toilet. She is typically responsible for meal prep. Her and daughter share laundry and home mgmt tasks. 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) - Coordination Appears within normal limits for therapeutic activities - Bed Mobility Independent (Ind with all bed mobility) - Transfers Independent - Balance Balance Sitting: Good Balance Standing: Good - Sensation Intact - Gait Detail (Pt ambulating community distances with 4 wheeled walker.) - ADL's/IADL's Detail (Pt able to demonstrate Ind with all showering, dressing tasks as well as light meal prep activity using activity modification and energy conservation techniques.) Therapy Assessment - Therapy Assessment Detail (Pt is Ind with all ADLs and meal prep tasks.) Problem List - Problem List Physical Therapy Problem List: Detail (1. Requires assist for bed mobility and transfers. 2. LE weakness 3. Impaired activity tolerance.) Occupational Therapy Problem List: Detail (1. Decreased endurance needed for safe and Ind self cares. 2. Decreased UE strength and endurance needed for Ind ADLs/IADLs. 3. Decreased Ind with self cares including total body dressing and bathing.) Goals - Goals Physical Therapy Goals: 1. Pt will be safe and independent w/bed mobility. (Goal Met). 2. Pt will safely and independently perform all transfers. (Goal Met). 3. Pt will safely and independently ambulate household distances with least restrictive assistive device.(Goal Met). 4. Pt will exhibit 4/5 strength or greater in major muscle groups of B LE's for greater stability with ambulation. (Goal Met). 5. Pt will tolerate at least 20 minutes of therapeutic activity w/o undue fatigue. Occupational Therapy Goals: Goals met: 1. Pt will demonstrate improved overall endurance to allow safe and Ind self care tasks. 2. Pt will participate in UE strengthening tasks to improve UE strength and allow for increased Ind with ADLs. 3. Pt will be safe and Ind with total body dressing. 4. Pt will be Ind with showering in sitting. Prognosis - Prognosis Good Plan - Plan Physical Therapy Plan: The patient is discharged from [facility] to home. The patient is to receive Home PT services. Occupational Therapy Plan: Pt discharged home with home OT on 05/07/19.
== END 2019-05-07 11:10 | disposition home or self-care (01) | DRG 372 ==
LOC: MEDSURG 04-22 14:02
PROVIDERS: ADMIT Internal Medicine; ATTEND Internal Medicine
DX: A04.72 Enterocolitis due to Clostridium difficile, not specified as recurrent (principal); C21.0 Malignant neoplasm of anus, unspecified; C91.10 Chronic lymphocytic leukemia of B-cell type not having achieved remission; C79.89 Secondary malignant neoplasm of other specified sites; I10 Essential (primary) hypertension; E78.5 Hyperlipidemia, unspecified; M32.9 Systemic lupus erythematosus, unspecified; R19.7 Diarrhea, unspecified; R11.0 Nausea; R60.0 Localized edema; M81.0 Age-related osteoporosis without current pathological fracture; M79.7 Fibromyalgia
CPT/HCPCS: 80048; 80053; 83735; 85027; 87329; 87493; 89055; 97110; 99306; 99310; 99316